=== PATIENT | male | born 1950 | race Caucasian/White ===

== ENCOUNTER 2020-04-20 14:32 | Outpatient (REF) | payer MEDICARE, SELFPAY ==
[2020-04-20 15:24] LABS: MANUAL DIFF FLAG NO
[2020-04-20 15:33] LABS: Basophils Absolute Auto 0.1 X10*3/uL (0.0-0.2); Basophils Percent Auto 1.9 % (0-2); Eosinophils Absolute Auto 0.2 X10*3/uL (0.0-0.4); Eosinophils Percent Auto 3.4 % (0-4); Hematocrit 42.9 % (42-52); Imm Gran Abs Auto 0.02 X10*3/uL (0.00-0.03); Imm Gran Pct Auto 0.3 % (0.0-0.4); Lymphocytes Absolute Auto 1.3 X10*3/uL (1.2-4.9); Lymphocytes Percent Auto 18.9 % (20-40); Mean Corpuscular HGB Conc 32.6 g/dl (31.0-36.0); Mean Corpuscular Volume 82.8 fL (80-98); Mean Platelet Volume 9.6 fL (9.4-12.4); Monocytes Absolute Auto 0.5 X10*3/uL (0.1-1.2); Monocytes Percent Auto 7.9 % (2-11); Neutrophils Absolute Auto 4.5 X10*3/uL (2.0-8.3); Neutrophils Percent Auto 67.6 % (45-73); Platelet Count 208 X10*3/uL (160-400); Red Blood Count 5.18 X10*6/uL (4.60-5.80); Red Cell Distribution Width 13.2 % (11.0-16.0); White Blood Count 6.7 X10*3/uL (4.8-10.8)
[2020-04-20 15:42] LABS: Estimated Average Glucose 123 mg/dL; Hemoglobin A1c % 5.9 %
[2020-04-20 16:05] LABS: Alanine Aminotransferase 24 U/L (0-40); Albumin Level 4.1 g/dL (3.5-5.0); Alkaline Phosphatase 63 U/L (39-117); Anion Gap 12 (12-20); Aspartate Amino Transferase 21 U/L (5-37); Bilirubin Total 0.8 mg/dL (0.0-1.0); Blood Urea Nitrogen 20 mg/dL (9-16); Carbon Dioxide 28 mmol/L (22-29); Chloride 103 mmol/L (96-108); Cholesterol 164 mg/dL; Estimated Glomerular Filt Rate > 60; Glucose Fasting 95 mg/dL (60-99); HDL Cholesterol 48 mg/dL; LDL Cholesterol Calculated 95 mg/dl; Potassium 4.1 mmol/l (3.3-5.1); Sodium 139 mmol/L (135-145); Total Protein 7.4 g/dL (6.5-8.0); Triglycerides 109 mg/dL
[2020-04-20 16:26] LABS: T4 Thyroxine 7.6 ug/dL (4.5-12.0); Thyroid Stimulating Hormone 1.87 mIU/mL (0.32-4.0)
[2020-04-20 16:33] LABS: Folate 8.1 ng/mL (> or = 4.0); Vitamin B12 691 pg/mL (200-900)
== END 2020-04-20 14:33 | disposition home or self-care (01) ==
LOC: HO.LAB 14:32
PROVIDERS: PCP Internal Medicine; Visit Provider Internal Medicine
DX: G47.33 Obstructive sleep apnea (adult) (pediatric) (principal); E78.5 Hyperlipidemia, unspecified; I10 Essential (primary) hypertension; R73.01 Impaired fasting glucose; I47.1 Supraventricular tachycardia
CPT/HCPCS: 36415; 80053; 80061; 82607; 82746; 83036; 84436; 84443; 85025

== ENCOUNTER → 2020-04-22 10:03 | Outpatient (REF) | payer MEDICARE, SELFPAY ==
--- NOTE | 2020-04-22 10:06 | ECG_ITS ---
Test Reason : CP Blood Pressure : / mmHG Vent. Rate : 064 BPM Atrial Rate : 064 BPM P-R Int : 146 ms QRS Dur : 098 ms QT Int : 410 ms P-R-T Axes : 045 032 037 degrees QTc Int : 422 ms Normal sinus rhythm Normal ECG When compared with ECG of 10-OCT-2015 07:33, No significant change was found Referred By: Veronica Malone Electronically Signed By:SADE MCARTHUR MD
== END ==
LOC: HO.CARD 10:03
PROVIDERS: PCP Internal Medicine; Visit Provider Internal Medicine
DX: Z01.818 Encounter for other preprocedural examination (principal); I10 Essential (primary) hypertension
CPT/HCPCS: 93005

== ENCOUNTER 2020-07-20 12:13 | Outpatient (REF) | payer MEDICARE, SELFPAY ==
[2020-07-20 12:33] LABS: MANUAL DIFF FLAG NO
[2020-07-20 12:36] LABS: Basophils Absolute Auto 0.1 X10*3/uL (0.0-0.2); Basophils Percent Auto 1.8 % (0-2); Eosinophils Absolute Auto 0.2 X10*3/uL (0.0-0.4); Eosinophils Percent Auto 3.3 % (0-4); Hematocrit 45.3 % (42-52); Hemoglobin 14.5 g/dl (14.0-18.0); Imm Gran Abs Auto 0.01 X10*3/uL (0.00-0.03); Imm Gran Pct Auto 0.1 % (0.0-0.4); Lymphocytes Absolute Auto 1.4 X10*3/uL (1.2-4.9); Lymphocytes Percent Auto 19.4 % (20-40); Mean Corpuscular Hemoglobin 26.7 pg (27.0-33.0); Mean Corpuscular Volume 83.3 fL (80-98); Mean Platelet Volume 9.4 fL (9.4-12.4); Monocytes Absolute Auto 0.7 X10*3/uL (0.1-1.2); Monocytes Percent Auto 9.4 % (2-11); Neutrophils Absolute Auto 4.8 X10*3/uL (2.0-8.3); Platelet Count 229 X10*3/uL (160-400); Red Blood Count 5.44 X10*6/uL (4.60-5.80); Red Cell Distribution Width 13.2 % (11.0-16.0); White Blood Count 7.3 X10*3/uL (4.8-10.8)
[2020-07-20 13:19] LABS: Anion Gap 13 (12-20); Blood Urea Nitrogen 18 mg/dL (9-16); Calcium 9.3 mg/dL (8.4-10.2); Carbon Dioxide 29 mmol/L (22-29); Chloride 103 mmol/L (96-108); Estimated Glomerular Filt Rate > 60; Glucose Fasting 107 mg/dL (60-99); Potassium 4.6 mmol/l (3.3-5.1); Sodium 140 mmol/L (135-145); Uric Acid 5.7 mg/dL (3.4-7.0)
== END 2020-07-20 12:14 | disposition home or self-care (01) ==
LOC: HO.LAB 12:13
PROVIDERS: PCP Nurse Practitioner Family; Visit Provider Nurse Practitioner Family
DX: M10.471 Other secondary gout, right ankle and foot (principal)
CPT/HCPCS: 36415; 80048; 84550; 85025

== ENCOUNTER 2020-10-15 09:14 | Outpatient (REF) | payer MEDICARE, SELFPAY ==
--- NOTE | ~2020-10-15 | XR_ITS ---
EXAMINATION: XR CHEST, 2 VIEWS CLINICAL INFORMATION: Cough COMPARISON: 10/08/2014 TECHNIQUE: PA and lateral views of the chest were obtained. FINDINGS: Minimal dependent atelectasis. Lungs are otherwise clear. No consolidation, pneumothorax, or pleural effusion. Cardiac and mediastinal contours are normal. Pulmonary vasculature is unremarkable. Trachea is midline. Mild degenerative disc disease in the thoracic spine. XR/XR chest 2V IMPRESSION: No acute pulmonary findings.
== END 2020-10-15 09:15 | disposition home or self-care (01) ==
LOC: HO.XRAY 09:14
PROVIDERS: PCP Internal Medicine; Visit Provider Internal Medicine
DX: R05 Cough (principal)
CPT/HCPCS: 71046

== ENCOUNTER → 2020-11-15 08:41 | Outpatient (BNVA) | payer MEDICARE, SELFPAY | PROVIDERS: PCP Internal Medicine; Referring Provider Internal Medicine; Visit Provider Internal Medicine Cardiovascular Disease | DX: I47.2 Ventricular tachycardia (principal); I10 Essential (primary) hypertension | CPT/HCPCS: 93005; 99212 ==

== ENCOUNTER → 2021-01-10 08:37 | Outpatient (REF) | payer MEDICARE, SELFPAY ==
--- NOTE | 2021-01-10 08:42 | CA_ITS ---
Transthoracic Echocardiogram Patient (Last, First, Middle): Ronnie Beasley E Gender: Male Date of : 1950 Age: 70 Procedure Date: 01/10/2021 Procedure Type: Transthoracic Echocardiogram Location: OP Height: 187.96 cm Weight: 97.52 kg BSA: 2.24 m2 Heart Rate: bpm BP: 138 / 79 mmHg Allergy Specialist: DSKandy Referring MD: Kavin Mcintosh MD Chair Pad Maker: Kavin Mcintosh MD Symptoms: I47.2 - Ventricular tachycardia Study Quality: Fair ECG Rhythm: Sinus Conclusions: - 1. Normal LV systolic function with impaired relaxation filling pattern 2. Thickened aortic valve without significant aortic stenosis 3. Normal RV systolic pressure 4. No gross pericardial effusion Findings Left Ventricle Normal left ventricular size, thickness, and systolic function. The visually estimated ejection fraction is between 65-70%. Spectral Doppler is indicative of an impaired relaxation filling pattern. E/E prime ratio is <8, consistent with normal filling pressures. Right Ventricle Normal right ventricular cavity size and systolic function. Atria The left atrium is normal in size. There is lipomatous hypertrophy of the interatrial septum. There is no evidence of interatrial shunt. The right atrium is normal in size. Aortic Valve There is mild calcification of the aortic valve. There is moderate thickening of the aortic valve. There is no aortic valve stenosis. There is no aortic valve regurgitation. Mitral Valve There is mild anterior and posterior mitral leaflet thickening. There is trace mitral valve regurgitation. There is no mitral valve stenosis. Pulmonic Valve The pulmonic valve was not well visualized. Tricuspid Valve Likely normal tricuspid valve structure and function. There is trace tricuspid valve regurgitation. The right ventricular systolic pressure is normal. Great Vessels All visible segments of the aorta are normal in size. The pulmonary artery was not well visualized. Venous The inferior vena cava was not well visualized. Pericardium/Pleural There is no evidence of pericardial effusion. Prior Study Comparison No previous study in the last 5 years for comparison Measurements M-Mode Liner Measurements Normals - Women/Men IVSd: 1.50 0.6-0.9/0.6-1.0 cm LVIDd: 4.84 3.9-5.3/4.2-5.9 cm LVIDd Index: 2.16 1.9-3.2 cm/m2 LVIDs: 3.11 2.0-3.8 cm LVPWd: 0.77 0.6-0.9/0.6-1.0 cm LV Mass: 255.57 67-162/88-224g LV Mass Index: 114.09 43-95/49-115 g/m2 M-Mode Volumes LV EDV: 110.00 LV ESV: 38.20 2D Linear Measurements IVSd: 1.17 0.6-0.9/0.6-1.0 cm LVIDd: 4.20 3.9-5.3/4.2-5.9 cm LVIDd Index: 1.88 2.4-3.2/2.2-3.1 cm/m2 LVIDs: 3.00 2.0-3.6 cm LVPWd: 1.18 0.7-1.1 cm Ao Root: 3.10 2.1-3.5 cm LA Diam: 3.10 2.7-3.8/3.0-4.0 cm LAIDs Index: 1.38 1.5-2.3 cm/m2 LV Mass: 215.20 67-162/88-224 g LV Mass Index: 96.07 43-95/49-115 g/m2 LVOT Diam: 2.60 3.0+(-)1.3 cm 2D Systolic Function EF 4C: 60.40 >55% EF 2C: 77.40 >55% EF BiP: 70.90 >55% M-Mode Systolic Function FS: 35.70 27-47/25-43% LVEF: 65.30 >55% Mitral Valve MV Pk E: 0.63 MV PK A: 0.61 MV Decel Time: 275.00 E/A: 1.00 E'Lateral: 6.74 E'Medial: 5.87 E/E' Med: 10.70 E/E' Lat: 9.30 PHT: 80.00 MVA PHT: 2.75 Decel [place]: 2.28 Aortic Valve AoV Pk Angel: 1.74 AoV Pk Grad: 12.00 LVOT LVOT Pk Angel: 0.90 LVOT Mn Angel: 0.55 LVOT VTI: 0.19 LVOT Pk Grad: 3.00 LVOT Mn Grad: 1.00 LVOT Diam: 2.60 LVOT Area: 5.31 Diastolic Function MV Pk E: 0.63 MV Pk A: 0.61 E/A: 1.00 E'Medial: 5.87 E/E' Med: 10.70 E' Laterial: 6.74 E/E' Lat: 9.30 Right Ventricle TAPSE (mm): 1.95 Tricuspid Valve TR Pk Angel: 2.19 TR Pk Grad: 19.00 Great Vessels Aorta Ao Root-2D: 3.10 2.0-3.7 cm Ao Asc: 3.40 2.1-3.4 cm Ao Arch: 2.20 Updated in Other Vendor System with Status of Final Kavin Mcintosh MD electronically signed on 01/12/2021 9:08:24 AM with status of Final
== END ==
LOC: HO.CARD 08:37
PROVIDERS: PCP Internal Medicine; Visit Provider Internal Medicine Cardiovascular Disease
DX: I47.2 Ventricular tachycardia (principal)
CPT/HCPCS: 93306

== ENCOUNTER 2021-04-28 12:07 | Outpatient (REF) | payer MEDICARE, SELFPAY ==
[2021-04-28 14:01] LABS: D Dimer 632 NG/ML
== END 2021-04-28 12:08 | disposition home or self-care (01) ==
LOC: HO.WFDLDS 12:07
PROVIDERS: Visit Provider Hospitalist
DX: T88.1XXA Other complications following immunization, not elsewhere classified, initial encounter (principal)
CPT/HCPCS: 36415; 85379

== ENCOUNTER 2021-04-29 13:50 | Outpatient (REF) | payer MEDICARE, SELFPAY ==
--- NOTE | ~2021-04-29 | US_ITS ---
EXAMINATION: US VENOUS ULTRASOUND WITH DOPPLER LOWER EXTREMITY, BILATERAL CLINICAL INFORMATION: Leg pain COMPARISON: None TECHNIQUE: Ultrasound of the deep veins is performed from the hip to the calf with compression sonography and color and pulse Doppler assessment. Spectral analysis with color-flow imaging is performed. FINDINGS: RIGHT: There is normal venous compression and respiratory variation and augmented flow. The visualized common femoral vein, superficial femoral vein, profunda femoral vein, popliteal vein, and the trifurcation region shows no evidence of deep venous thrombosis. There is no significant popliteal fossa cyst. LEFT: There is normal venous compression and respiratory variation and augmented flow. The visualized common femoral vein, superficial femoral vein, profunda femoral vein, popliteal vein, and the trifurcation region shows no evidence of deep venous thrombosis. There is a Jones's cyst measuring 4 x 0.8 x 2.1 cm. If the patient's symptoms persist, followup ultrasound in 5 days 7 days might be of value to exclude proximal propagation from a non-visualized calf vein. US/US venous duplex LE BI IMPRESSION: No DVT demonstrated in the bilateral lower extremity.
[2021-04-29 14:46] LABS: MANUAL DIFF FLAG NO
[2021-04-29 15:17] LABS: Basophils Absolute Auto 0.2 X10*3/uL (0.0-0.2); Basophils Percent Auto 1.7 % (0-2); Eosinophils Absolute Auto 0.7 X10*3/uL (0.0-0.4); Eosinophils Percent Auto 6.8 % (0-4); Hematocrit 40.4 % (42.0-52.0); Hemoglobin 13.3 g/dl (14.0-18.0); Imm Gran Abs Auto 0.14 X10*3/uL (0.00-0.03); Imm Gran Pct Auto 1.4 % (0.0-0.4); Lymphocytes Absolute Auto 1.2 X10*3/uL (1.2-4.9); Lymphocytes Percent Auto 12.4 % (20-40); Mean Corpuscular HGB Conc 32.9 g/dl (31.0-36.0); Mean Corpuscular Hemoglobin 26.4 pg (27.0-33.0); Mean Corpuscular Volume 80.2 fL (80.0-98.0); Mean Platelet Volume 8.6 fL (9.4-12.4); Monocytes Percent Auto 10.3 % (2-11); Neutrophils Absolute Auto 6.8 x10*3/uL (2.0-8.3); Neutrophils Percent Auto 67.4 % (45-73); Platelet Count 416 X10*3/uL (160-400); Red Blood Count 5.04 X10*6/uL (4.60-5.80); Red Cell Distribution Width 13.3 % (11.0-16.0)
[2021-04-29 15:29] LABS: Estimated Average Glucose 126 mg/dL
[2021-04-29 15:38] LABS: Alanine Aminotransferase 65 U/L (0-40); Albumin Level 3.8 g/dL (3.5-5.0); Alkaline Phosphatase 120 U/L (39-117); Anion Gap 11 (12-20); Aspartate Amino Transferase 26 U/L (5-37); Bilirubin Total 0.4 mg/dL (0.0-1.0); Blood Urea Nitrogen 18 mg/dL (9-16); Calcium 9.4 mg/dL (8.4-10.2); Carbon Dioxide 28 mmol/L (22-29); Chloride 101 mmol/L (96-108); Estimated Glomerular Filt Rate > 60; Glucose Random 122 mg/dL (60-115); Potassium 4.4 mmol/L (3.3-5.1); Sodium 136 mmol/L (135-145); Total Protein 7.6 g/dL (6.5-8.0)
[2021-04-29 15:41] LABS: B Type Natriuretic Peptide 98 pg/mL (<100)
[2021-04-29 15:55] LABS: Vitamin D 25-OH Total 42.6 ng/mL (>30)
[2021-04-29 16:00] LABS: Free T4 (Free Thyroxine) 1.12 ng/dL (0.71-1.85); Thyroid Stimulating Hormone 2.13 uIU/mL (0.32-4.0)
[2021-04-29 16:12] LABS: Folate 10.9 ng/mL (> or = 4.0); Vitamin B12 727 pg/mL (200-900)
== END 2021-04-29 13:51 | disposition home or self-care (01) ==
LOC: HO.US 13:50
PROVIDERS: PCP Internal Medicine; Visit Provider Nurse Practitioner Family
DX: M79.604 Pain in right leg (principal); M79.605 Pain in left leg; R79.89 Other specified abnormal findings of blood chemistry; I10 Essential (primary) hypertension; R73.02 Impaired glucose tolerance (oral)
CPT/HCPCS: 36415; 80053; 82306; 82607; 82746; 83036; 83735; 83880; 84439; 84443; 85025; 93970

== ENCOUNTER 2021-06-06 07:30 | Day surgery (SDC) | payer MEDICARE, SELFPAY ==
[2021-05-31 14:24] VITALS: BMI 28.2
--- NOTE | 2021-06-03 08:22 | HO.ANESPROP2 ---
Documented by User: Leslye Briceno NP 06/03/21 08:24 HPI - Anesthesia Eval Consult details Narrative: 71yo M for Colonoscopy [facility] Active Problems Active Problems: All Active Problems (Updated 04/29/21 @ 10:26 by MEGAN Michel) Elevated d-dimer (Acute) Leg pain, bilateral (Acute) Side effects of vaccination (Acute) Annual physical exam (Acute) Aphthous ulcer (Acute) PVCs (premature ventricular contractions) (Acute) Nonsustained ventricular tachycardia (Acute) Colon cancer screening (Acute) Cough (Acute) Constipation (Acute) Hemorrhoid (Acute) History of cataract surgery (Acute) Gout (Acute) Gout attack (Acute) Costochondritis (Acute) Preop exam for internal medicine (Acute) Impaired glucose tolerance (Acute) Asthma (Acute) Hypercholesterolemia (Acute) Hypertension (Acute) Past Medical History Medical History Asthma Gout attack Hemorrhoids Hypercholesterolemia Hypertension Impaired glucose tolerance Lumbar herniated disc Nonsustained ventricular tachycardia Obstructive sleep apnea PVCs (premature ventricular contractions) Supraventricular tachycardia Traumatic tear of supraspinatus tendon of right shoulder Family History Family History Father Renal cell cancer Mother Gastric cancer Hypertension Diabetes Surgical History Surgical History History of arthroscopy of left knee History of tonsillectomy Total knee replacement status Social History Social History Housing: House Alcohol intake: current Alcohol intake frequency: holidays/special occasions only Patient Tobacco Use Status: Former Tobacco user Quit Date: Years Smoked: 1969 e-Cigarette/Vaping Use: Never Used Second Hand Smoke Exposure: No Use of substances other than those prescribed or required for medical reasons: No Are you DNR?: No Advance Directives: No Advance Directives Information Provided: Yes Advance Directives on File: No Current occupational status: employed Meds Allergies Allergy/AdvReac Type Severity Reaction Status Date / Time lisinopril Allergy Unknown Unknown Verified 04/29/21 09:57 Home Medications Medication Instructions Recorded Confirmed Last Taken Type aspirin 81 mg tablet,delayed 81 mg PO DAILY 10/06/06/21 05/28/21 History release (Adult Aspirin Regimen) cholecalciferol (vitamin D3) 25 25 mcg PO DAILY 04/22/20 05/31/21 Unknown History mcg (1,000 unit) capsule sildenafil 100 mg tablet (Viagra) 100 mg PO DAILY PRN 04/22/20 04/29/21 Unknown History fexofenadine 180 mg tablet 180 mg PO DAILY 05/31/21 05/31/21 Unknown History (Yumi Allergy) ropinirole 0.25 mg tablet 0.25 mg PO BEDTIME PRN 05/31/21 05/31/21 Unknown History Exam Exam Date and Time: June 03, 2021 0822 Height,Weight and Vital Signs: Height 6 ft 2 in Weight 99.79 kg Pertinent Lab Results Pertinent Lab Results: Laboratory Tests 04/29/21 04/29/21 14:35 14:35 WBC 10.0 Hgb 13.3 L Hct 40.4 L Plt Count 416 H Sodium 136 Potassium 4.4 Chloride 101 Carbon Dioxide 28 BUN 18 H Creatinine 1.00 Narrative Narrative: EKG 10/2020 ?normal sinus rhythm with normal EKG ECHO 12/2020 Conclusions: -? 1. Normal LV systolic function with impaired relaxation ? ? ? filling pattern? 2. Thickened aortic valve without significant aortic stenosis? ? 3. Normal RV systolic pressure ? 4. No gross pericardial effusion ? ? Assessment and Plan Assessment Anesthesia Assessment: Chart Reviewed Documented by User: Alyson Alexandre MD 06/06/21 08:48 PMFSH Active Problems Active Problems: All Active Problems (Updated 04/29/21 @ 10:26 by MEGAN Michel) Elevated d-dimer (Acute) Leg pain, bilateral- resolved. USS negative for clot Side effects of vaccination (Acute) Annual physical exam (Acute) Aphthous ulcer (Acute) PVCs (premature ventricular contractions) (Acute) Nonsustained ventricular tachycardia (Acute) Colon cancer screening (Acute) Cough (Acute) Constipation (Acute) Hemorrhoid (Acute) History of cataract surgery (Acute) Gout (Acute) Gout attack (Acute) Costochondritis (Acute) Preop exam for internal medicine (Acute) Impaired glucose tolerance (Acute) Asthma (Acute) Hypercholesterolemia (Acute) Hypertension (Acute) Past Medical History Medical History Asthma Gout attack Hemorrhoids Hypercholesterolemia Hypertension Impaired glucose tolerance Lumbar herniated disc Nonsustained ventricular tachycardia Obstructive sleep apnea PVCs (premature ventricular contractions) Supraventricular tachycardia Traumatic tear of supraspinatus tendon of right shoulder Family History Family History Father Renal cell cancer Mother Gastric cancer Hypertension Diabetes Family history of problems with anesthesia: No Surgical History Surgical History History of arthroscopy of left knee History of tonsillectomy Total knee replacement status History of Problems with Anesthesia: No Social History Social History Housing: House Alcohol intake: current Alcohol intake frequency: holidays/special occasions only Patient Tobacco Use Status: Former Tobacco user Quit Date: Years Smoked: 1969 e-Cigarette/Vaping Use: Never Used Second Hand Smoke Exposure: No Use of substances other than those prescribed or required for medical reasons: No Are you DNR?: No Advance Directives: No Advance Directives Information Provided: Yes Advance Directives on File: No Current occupational status: employed Meds Allergies Allergy/AdvReac Type Severity Reaction Status Date / Time lisinopril Allergy Unknown Unknown Verified 04/29/21 09:57 Home Medications Medication Instructions Recorded Confirmed Last Taken Type aspirin 81 mg tablet,delayed 81 mg PO DAILY 04/22/20 06/06/21 05/28/21 History release (Adult Aspirin Regimen) cholecalciferol (vitamin D3) 25 25 mcg PO DAILY 04/22/20 05/31/21 Unknown History mcg (1,000 unit) capsule sildenafil 100 mg tablet (Viagra) 100 mg PO DAILY PRN 04/22/20 04/29/21 Unknown History fexofenadine 180 mg tablet 180 mg PO DAILY 05/31/21 05/31/21 Unknown History (Yumi Allergy) ropinirole 0.25 mg tablet 0.25 mg PO BEDTIME PRN 05/31/21 05/31/21 Unknown History Exam Height,Weight and Vital Signs: Height 6 ft 2 in Weight 99.79 kg Vital Signs Temp Pulse Resp BP Pulse Ox 06/06/21 08:02 97.1 F 81 16 123/80 98 Airway Mallampati Class: III TM Dist: >3cm Neck ROM: Full Loose/Missing/Broken Teeth: Yes (Broken back) Heart: RRR Lungs: CTAB Assessment and Plan Assessment Anesthesia Assessment: Anesthesia Plan Discussed Final Anesthetic Review Family History of Problems with Anesthesia: No History of Problems with Anesthesia: No NPO: Yes ASA Class: III Final Preanesthetic Review: No Changes in Pt Med Stat, Meds/Allgs Chart Reviewed, Consent Obtained/Reviewed and Anes Risks/Benef Reviewed Patient Risk: Intermediate Procedure Risk: Low Assessment/Block/Sedation in SS: Assess/Block/Sedation-SS Anesthetic Plan Anesthetic Plan: MAC: Disposition: Standard PACU
[2021-06-06 08:02] VITALS: BP 123/80; PULSE 81; RESP 16; TEMP 36.2; O2SAT 98
[2021-06-06] MEDS: Lactated Ringers 1,000 ML 100 ML IVCONT (08:07)
[2021-06-06 09:31] VITALS: BP 91/56; PULSE 71; RESP 16; TEMP 36.5; O2SAT 94
--- NOTE | 2021-06-06 09:33 | P.BOP_ITS ---
Brief Operative Note Date of Service: 06/06/21 Pre-op diagnosis: Screening Post-op diagnosis: other (Colon polyp) Procedure: Colonoscopy to the cecum and TI with bx/removal of polyp Surgeon: Estiven Campoverde Anesthesia: MAC Was an Hydroelectric Station Operator Chief used for this Procedure?: No Estimated blood loss (mL): 2.0 Pathology: other (A. Ascending colon polyp) Condition: stable Disposition: PACU
[2021-06-06 09:48] VITALS: BP 106/68; PULSE 70; RESP 20; TEMP 36.5; O2SAT 96
--- NOTE | 2021-06-06 14:08 | OP_ITS ---
SURGEON: Estiven Campoverde MD INDICATIONS: The patient presents for evaluation of colorectal cancer screening. Full consent has been obtained from him for this, including risks of bleeding and perforation. PREOPERATIVE DIAGNOSIS: Colorectal cancer screening. POSTOPERATIVE DIAGNOSIS: Colorectal cancer screening, small colon polyp, mild diverticulosis, and internal hemorrhoids. PROCEDURE PERFORMED: Colonoscopy to the cecum and terminal ileum with biopsy and removal of polyp. ESTIMATED BLOOD LOSS: COMPLICATIONS: ANESTHESIA: Medication used, monitored anesthesia care. ASSISTANTS: SPECIMENS: DESCRIPTION OF PROCEDURE: The patient was placed in the left lateral decubitus position. The digital rectal exam revealed no abnormalities. An Olympus video pediatric colonoscope was entered into the rectum and advanced easily to the cecum. Once in the cecum, I did identify normal-appearing cecal pouch with appendiceal orifice and a normal-appearing ileocecal valve. The terminal ileum was cannulated and appeared normal. The scope was withdrawn back into the colon. The entire cecum and ileocecal valve appeared normal. The scope was slowly withdrawn assessing all mucosal surfaces carefully. Preparation was excellent. In the ascending colon, was a flat approximately 3 or 4 mm polyp, which was biopsied and removed completely with cold biopsy forceps. I did not visualize any other polyps, colitis, nor angiodysplasia. There was a mild amount of sigmoid diverticulosis. In the rectum, scope was retroflexed visualizing small internal hemorrhoids, but no other pathology. The rectal mucosa appeared normal. The scope was straightened and withdrawn from the patient. He tolerated the procedure well and was returned to recovery area in stable condition. IMPRESSION: 1. Small colon polyp, status post biopsy removal. 2. Mild diverticulosis. 3. Internal hemorrhoids. PLAN: The results of the biopsy will be checked. Given his age and these minimal findings, I do not think he will need any further screening colonoscopies even if this is a tubular adenoma. As such, he will see me again on a p.r.n. basis. MD LIONEL Nguyen/MAJO / [id number] MTDD
== END 2021-06-06 10:48 | disposition home or self-care (01) ==
PROVIDERS: PCP Internal Medicine; Visit Provider Internal Medicine
PROC: 0DJD8ZZ Inspection of Lower Intestinal Tract, Via Natural or Artificial Opening Endoscopic (ICD-10-PCS; CPT 45378; principal; 2021-06-06 08:40)
DX: Z12.11 Encounter for screening for malignant neoplasm of colon (principal); D12.2 Benign neoplasm of ascending colon; K57.30 Diverticulosis of large intestine without perforation or abscess without bleeding; K64.8 Other hemorrhoids; I10 Essential (primary) hypertension; I47.2 Ventricular tachycardia; E78.5 Hyperlipidemia, unspecified; Z79.899 Other long term (current) drug therapy
CPT/HCPCS: 45380; 88305

== ENCOUNTER 2021-07-05 12:40 | Outpatient (REF) | payer MEDICARE, SELFPAY ==
--- NOTE | ~2021-07-05 | XR_ITS ---
EXAMINATION: XR CHEST CLINICAL INFORMATION: Hemoptysis COMPARISON: Chest x-ray on 10/15/2020 TECHNIQUE: 2 views of the chest were obtained. FINDINGS: Cardiomediastinal silhouette is normal. Development of a trace right pleural effusion with adjacent atelectasis. The left pleural effusion. No areas of consolidation. XR/XR chest 2V IMPRESSION: Development of a trace right pleural effusion with adjacent atelectasis.
== END 2021-07-05 12:41 | disposition home or self-care (01) ==
LOC: HO.XRAY 12:40
PROVIDERS: PCP Internal Medicine; Visit Provider Internal Medicine
DX: R04.2 Hemoptysis (principal)
CPT/HCPCS: 71046

== ENCOUNTER 2021-07-07 15:55 | Outpatient (REF) | payer MEDICARE, SELFPAY | END 2021-07-07 15:56 | disposition home or self-care (01) | LOC: HO.LNP 15:55 | PROVIDERS: Visit Provider Internal Medicine | DX: R05.9 Cough, unspecified (principal) | CPT/HCPCS: 87070; 87116; 87205 ==

== ENCOUNTER 2021-07-09 11:39 | Outpatient (REF) | payer MEDICARE, SELFPAY | END 2021-07-09 11:40 | disposition home or self-care (01) | LOC: HO.LNP 11:39 | PROVIDERS: PCP Internal Medicine; Visit Provider Internal Medicine | DX: R04.2 Hemoptysis (principal); J90 Pleural effusion, not elsewhere classified | CPT/HCPCS: 87070; 87205 ==

== ENCOUNTER 2021-11-16 14:17 | Outpatient (REF) | payer MEDICARE, SELFPAY ==
--- NOTE | ~2021-11-16 | XR_ITS ---
EXAMINATION: XR CHEST CLINICAL INFORMATION: Chest pain COMPARISON: Previous chest x-ray June 2021 TECHNIQUE: 2 views of the chest were obtained. FINDINGS: The cardiac and mediastinal contours are stable. There is bilateral subsegmental atelectasis. Lungs are otherwise clear. There is no pleural effusion or pneumothorax. There are mild degenerative changes of the spine. XR/XR chest 2V IMPRESSION: Bilateral subsegmental atelectasis.
[2021-11-16 14:43] LABS: MANUAL DIFF FLAG NO
[2021-11-16 16:08] LABS: Basophils Absolute Auto 0.1 X10*3/uL (0.0-0.2); Basophils Percent Auto 1.9 % (0-2); Eosinophils Absolute Auto 0.4 X10*3/uL (0.0-0.4); Eosinophils Percent Auto 5.3 % (0-4); Imm Gran Abs Auto 0.02 X10*3/uL (0.00-0.03); Imm Gran Pct Auto 0.3 % (0.0-0.4); Lymphocytes Absolute Auto 1.3 X10*3/uL (1.2-4.9); Lymphocytes Percent Auto 18.2 % (20-40); Mean Corpuscular HGB Conc 31.8 g/dl (31.0-36.0); Mean Corpuscular Hemoglobin 25.7 pg (27.0-33.0); Mean Corpuscular Volume 80.9 fL (80.0-98.0); Mean Platelet Volume 9.8 fL (9.4-12.4); Monocytes Absolute Auto 0.8 X10*3/uL (0.1-1.2); Monocytes Percent Auto 11.5 % (2-11); Neutrophils Absolute Auto 4.4 x10*3/uL (2.0-8.3); Neutrophils Percent Auto 62.8 % (45-73); Platelet Count 246 X10*3/uL (160-400); Red Blood Count 5.44 X10*6/uL (4.60-5.80); Red Cell Distribution Width 14.8 % (11.0-16.0); Retic HGB Equivalent 30.8 pg (30.0-35.0); Reticulocyte Percent 1.7 % (0.5-1.8)
[2021-11-16 16:14] LABS: D Dimer High Sensitivity 945 NG/ML
[2021-11-16 16:41] LABS: Alanine Aminotransferase 18 U/L (0-40); Albumin Level 4.1 g/dL (3.5-5.0); Alkaline Phosphatase 80 U/L (39-117); Anion Gap 13 (12-20); Aspartate Amino Transferase 19 U/L (5-37); Bilirubin Total 0.6 mg/dL (0.0-1.0); Blood Urea Nitrogen 16 mg/dL (9-16); Calcium 9.7 mg/dL (8.4-10.2); Carbon Dioxide 28 mmol/L (22-29); Chloride 104 mmol/L (96-108); Estimated Glomerular Filt Rate > 60; Glucose Random 94 mg/dL (60-115); Iron 47 mcg/dL (45-160); Percent Iron Saturation 16 % (15-50); Potassium 5.1 mmol/L (3.3-5.1); Sodium 140 mmol/L (135-145); Total Iron Binding Capacity 291 mcg/dL (228-428); Total Protein 7.7 g/dL (6.5-8.0); Unsaturated Iron Binding 244 ug/dL
[2021-11-16 16:48] LABS: Ferritin 188 ng/mL (20-250)
[2021-11-16 17:02] LABS: Folate 6.4 ng/mL (> or = 4.0); Vitamin B12 551 pg/mL (200-900)
== END 2021-11-16 14:18 | disposition home or self-care (01) ==
LOC: HO.LAB 14:17
PROVIDERS: PCP Internal Medicine; Visit Provider Family Medicine
DX: Z00.00 Encounter for general adult medical examination without abnormal findings (principal); R07.9 Chest pain, unspecified; R06.89 Other abnormalities of breathing; I10 Essential (primary) hypertension; R79.89 Other specified abnormal findings of blood chemistry; J90 Pleural effusion, not elsewhere classified
CPT/HCPCS: 36415; 71046; 80053; 82607; 82728; 82746; 83540; 85025; 85045; 85379

== ENCOUNTER → 2021-11-17 08:42 | Outpatient (BNVA) | payer MEDICARE, SELFPAY | PROVIDERS: PCP Internal Medicine; Referring Provider Internal Medicine; Visit Provider Internal Medicine Cardiovascular Disease | DX: I47.2 Ventricular tachycardia (principal); R07.9 Chest pain, unspecified; I10 Essential (primary) hypertension | CPT/HCPCS: 99212 ==

== ENCOUNTER 2021-11-17 15:50 | Emergency (ER) | payer MEDICARE, SELFPAY ==
--- NOTE | ~2021-11-17 | US_ITS ---
EXAMINATION: US VENOUS ULTRASOUND WITH DOPPLER LOWER EXTREMITY, RIGHT CLINICAL INFORMATION: Right lower extremity pain and swelling COMPARISON: None TECHNIQUE: Ultrasound of the deep veins is performed from the hip to the calf with compression sonography and color and pulse Doppler assessment. Spectral analysis with color-flow imaging is performed. FINDINGS: The right common femoral, greater saphenous and profunda veins are patent. The proximal special vein is patent as well. However there is acute thrombus with no flow visualized in the right mid and distal superficial femoral, popliteal veins. The posterior tibial proximal radius thrombosis as well. The peroneal vein is patent. There is no Jones's cyst seen. If the patient's symptoms persist, followup ultrasound in 5 days 7 days might be of value to exclude proximal propagation from a non-visualized calf vein. US/US venous duplex LE RT IMPRESSION: Acute DVT right mid, distal superficial femoral, popliteal and posterior tibial veins. Results were immediately called by [place] its text to Dr. Faisal Martin at 4:30 PM. As per PCP instruction patient was sent to ER for for further treatment.
[2021-11-17 16:24] VITALS: BP 186/75; PULSE 68; RESP 18; TEMP 36.8; O2SAT 95; BMI 28.5
--- NOTE | 2021-11-17 16:49 | ECG_ITS ---
Test Reason : blood clot Blood Pressure : / mmHG Vent. Rate : 064 BPM Atrial Rate : 064 BPM P-R Int : 146 ms QRS Dur : 116 ms QT Int : 422 ms P-R-T Axes : 025 006 019 degrees QTc Int : 435 ms Normal sinus rhythm Normal ECG When compared with ECG of 22-APR-2020 10:13, No significant change was found Referred By: Leonardo Kenny Electronically Signed By:Antwon Valdez
--- NOTE | 2021-11-17 16:55 | ED.GENADULT ---
HPI - General Adult General Chief complaint: Extremity Injury, Lower Stated complaint: +blood clot in leg Time Seen by Provider: 11/17/21 16:25 Source: patient Mode of arrival: ambulatory Limitations: no limitations History of Present Illness HPI narrative: 71 yo sent here because rt leg swelling and US positive for DVT.Leg has been swollen for 1 Week ,he also has rt pleuritic chest pain He had blood work and CXR Yesterday.He denies SOB,fever chills.His pleuritic chest pain is present for 3 Days Onset (ago): week(s) (1 Week) Location: right and lower extremity Severity: moderate Quality: burning Pain Consistency: constant Relieving factors: none Related Data Home Medications Medication Instructions Recorded Confirmed aspirin 81 mg tablet,delayed 81 mg PO DAILY 04/22/20 11/17/21 release (Adult Aspirin Regimen) cholecalciferol (vitamin D3) 25 25 mcg PO DAILY 04/22/20 11/17/21 mcg (1,000 unit) capsule sildenafil 100 mg tablet (Viagra) 100 mg PO DAILY PRN 04/22/20 11/17/21 fexofenadine 180 mg tablet 180 mg PO DAILY 05/31/21 11/17/21 (Yumi Allergy) Previous Rx's Medication Instructions Recorded rosuvastatin 40 mg tablet (Crestor) 40 mg PO DAILY #90 tab 01/10/21 metoprolol succinate 50 mg 50 mg PO QPM #90 tab 04/08/21 tablet,extended release 24 hr losartan 25 mg tablet 25 mg PO DAILY #90 tab 04/11/21 diclofenac sodium 1 % topical gel 2 g TOPICAL QID PRN 10 Days #100 g 04/29/21 (Arthritis Pain (diclofenac)) naproxen 500 mg tablet 500 mg PO BID 90 Days #180 tab 08/29/21 metoprolol succinate 100 mg 100 mg PO QAM #90 tab 10/13/21 tablet,extended release 24 hr apixaban 5 mg (74 tabs) tablets in 5 mg PO BID #74 ea 11/17/21 a dose pack (Eliquis DVT-PE Treat 30D Start) Allergies Allergy/AdvReac Type Severity Reaction Status Date / Time lisinopril Allergy Unknown Unknown Verified 11/17/21 16:24 Review of Systems Constitutional: Constitutional: Reports as per HPI ENT: Reports system reviewed and no additional complaints, except as documented Cardiovascular: Cardiovascular: Reports no additional cardiovascular complaints Gastrointestinal: Gastrointestinal: Reports no additional gastrointestinal complaints [facility] Past Medical History Medical History Asthma Gout attack Hemorrhoids Hypercholesterolemia Hypertension Impaired glucose tolerance Lumbar herniated disc Nonsustained ventricular tachycardia Obstructive sleep apnea PVCs (premature ventricular contractions) Supraventricular tachycardia Traumatic tear of supraspinatus tendon of right shoulder Surgical History History of arthroscopy of left knee History of tonsillectomy Total knee replacement status Family History Family History Father Renal cell cancer Mother Gastric cancer Hypertension Diabetes Social History Social History Housing: House Alcohol intake: current Alcohol intake frequency: holidays/special occasions only Patient Tobacco Use Status: Former Tobacco user Quit Date: Years Smoked: 1969 e-Cigarette/Vaping Use: Never Used Second Hand Smoke Exposure: No service: No Current occupational status: employed Current occupational exposures/hazards: No Cognitive needs: No Hearing needs: No Vision needs: Yes Physical Exam ED Vital Signs: Vital Signs - 24 hr 11/17/21 16:24 Temperature 98.3 F Pulse Rate 68 Respiratory Rate 18 Blood Pressure 186/75 H Pulse Oximetry 95 BMI result Body Mass Index 28.5 Const General: cooperative, healthy appearing and comfortable Nutritional Appearance: average body habitus Orientation/consciousness: patient oriented x3 Limitations: no limitations HENMT Head: Yes normal to inspection and Yes No palpable skull fracture present Ears: hearing grossly normal bilaterally General nose exam: Normal external nose present Face and sinus: Yes normal facial exam Mouth: Normal oral and palatal mucosa present Throat: Yes posterior oropharynx normal Neck Neck: Yes normal visual inspection Thyroid: Thyroid normal Chest Chest palpation & inspection: normal inspection of the chest and normal palpation of entire chest wall Breast/axilla palpation: normal palpation of the breasts Resp Effort & Inspection: normal respiratory effort Auscultation: clear to auscultation bilaterally Percussion: percussion normal Cardio Jugular venous distension: no JVD Palpation: normal PMI Rate: regular rate Rhythm: regular rhythm GI Inspection: Yes normal to inspection Palpation (GI): Soft to palpation, not firm, nontender and no guarding Percussion: Yes normal to percussion General: Yes no CVA tenderness Back/Spine/Pelvis Back: no CVA tenderness Skin General skin exam: no rashes or lesions noted and turgor normal Lesions: no lesions Rashes: no rashes Nails: normal Neuro General: patient oriented x3 Medical Decision Making MDM Narrative Medical decision making narrative: PT has positive DVT rt leg,will be started on eliquil 10 mg BID X 1 Week then 5 mg BID,given the shortage national of IV contrast I do not think we need to do CTA because this will not change the treatment,he looks well he is not tachycardic Sat 95 %,he is not complaining of SOB. THis was discussed with pt and PCP Dr URBAN both comfortable with the plan to hold CTA Chest. I reviwed the CXR done Yesterday and labs done Yesterday I do not think needs further labs This pt was evaluated during a time of global shortage of iodinated contrast media the current situation was discussed with the pt,CTA will not change treatment Imaging Data us leg: Radiologist's impression: FINDINGS: The right common femoral, greater saphenous and profunda veins are patent. The proximal special vein is patent as well. However there is acute thrombus with no flow visualized in the right mid and distal superficial femoral, popliteal veins. The posterior tibial proximal radius thrombosis as well. The peroneal vein is patent. There is no Jones's cyst seen. If the patient's symptoms persist, followup ultrasound in 5 days 7 days might be of value to exclude proximal propagation from a non-visualized calf vein. US/US venous duplex LE RT IMPRESSION: Acute DVT right mid, distal superficial femoral, popliteal and posterior tibial veins. ? Results were immediately called by [place] its text to Dr. Faisal Martin at 4:30 PM. As per PCP instruction patient was sent to ER for for further treatment. Dictated By: Agusto Gregorio MD Signed By: <Electronically signed by Agusto Gregorio MD in OV> 11/17/21 2023 DD/ 1541 ECG Data Attestation: I personally reviewed and interpreted this ECG as follows: Pacemaker model: NSR 64 no ischemic changes Discharge Plan Discharge Clinical Impression: Venous thromboembolism (VTE) Patient Disposition: Home, Self-Care Instructions: Deep Vein Thrombosis (ED) Additional Instructions: Please be aware that you were seen during time of global shortage of iodinated media.This means that an alternative approach to your diagnosis and treatment may have been employed in order to provide optimal care during this shortage. If you have worsening of symptoms return to the ED,if you are short of breath or having difficult to breathing. Take eliquis as directed 10 mg twice day first Week then 5 mg twice day,we gave you 1 Month supply ,your Primary care will prescribe further supply of Eliquis Prescriptions: New Eliquis DVT-PE Treat 30D Start 5 mg (74 tabs) tablets,dose pack 5 mg PO BID Qty: 74 0RF Rx Instructions: first week 10 mg BID then 5 mg BID No Action rosuvastatin [Crestor] 40 mg tablet 40 mg PO DAILY Qty: 90 3RF metoprolol succinate 50 mg tablet extended release 24 hr 50 mg PO QPM Qty: 90 2RF losartan 25 mg tablet 25 mg PO DAILY Qty: 90 2RF diclofenac sodium [Arthritis Pain (diclofenac)] 1 % gel 2 g topical QID PRN (Reason: pain) 10 Days Qty: 100 0RF Rx Instructions: apply to single elbow, wrist or hand; for hand includes palm/fingers/back of hand naproxen 500 mg tablet 500 mg PO BID 90 Days Qty: 180 0RF metoprolol succinate 100 mg tablet extended release 24 hr 100 mg PO QAM Qty: 90 2RF fexofenadine [Yumi Allergy] 180 mg Tablet 180 mg PO DAILY 0RF cholecalciferol (vitamin D3) 25 mcg (1,000 unit) capsule 25 mcg PO DAILY 0RF aspirin [Adult Aspirin Regimen] 81 mg tablet,delayed release (DR/EC) 81 mg PO DAILY 0RF sildenafil [Viagra] 100 mg tablet 100 mg PO DAILY PRN0RF Rx Instructions: administer 30 minutes to 4 hours before activity Referrals: Po,Veronica Julio MD [Primary Care Provider] - 3 days Interventions: ED Discharge Assessment Last Done: 11/17/21 17:42 Discharge Date/Time: 11/17/21 17:43
[2021-11-17] MEDS: Apixaban 5 MG TABLET 10 MG PO (17:26)
== END 2021-11-17 17:43 | disposition home or self-care (01) ==
LOC: HO.ED 15:50
PROVIDERS: Emergency Provider Emergency Medicine; PCP Internal Medicine; Visit Provider Internal Medicine
DX: I82.401 Acute embolism and thrombosis of unspecified deep veins of right lower extremity (principal); R07.89 Other chest pain; M79.89 Other specified soft tissue disorders; M79.661 Pain in right lower leg; I10 Essential (primary) hypertension; E78.5 Hyperlipidemia, unspecified; Z79.82 Long term (current) use of aspirin; Z79.02 Long term (current) use of antithrombotics/antiplatelets; Z79.899 Other long term (current) drug therapy
CPT/HCPCS: 93005; 93971; 99283; 99284

== ENCOUNTER 2021-11-24 10:58 | Emergency (ER) | payer MEDICARE, SELFPAY ==
--- NOTE | ~2021-11-24 | US_ITS ---
EXAMINATION: US VENOUS ULTRASOUND WITH DOPPLER LOWER EXTREMITY, RIGHT CLINICAL INFORMATION: On Eliquis. COMPARISON: Ultrasound right lower extremity 11/17/2021. TECHNIQUE: Ultrasound of the deep veins is performed from the hip to the calf with compression sonography and color and pulse Doppler assessment. Spectral analysis with color-flow imaging is performed. FINDINGS: Again visualized is a thrombus with absent flow visualized in right mid, distal superficial femoral vein, popliteal vein and proximal posterior tibial veins. There is normal flow visualized in right common femoral, greater saphenous, proximal superficial femoral and peroneal veins. If the patient's symptoms persist, followup ultrasound in 5 days 7 days might be of value to exclude proximal propagation from a non-visualized calf vein. US/US venous duplex LE RT IMPRESSION: Stable thrombus visualized in the mid and distal superficial femoral, popliteal and proximal posterior tibial veins similar previous study 11/17/2021. There is no propagation of clot. Recommend continued follow-up after one week of anticoagulants.
[2021-11-24 11:07] VITALS: BP 189/96; PULSE 70; RESP 18; TEMP 36.6; O2SAT 97; BMI 28.2
[2021-11-24 11:26] LABS: MANUAL DIFF FLAG NO
[2021-11-24 11:33] LABS: Basophils Absolute Auto 0.1 X10*3/uL (0.0-0.2); Eosinophils Absolute Auto 0.3 X10*3/uL (0.0-0.4); Eosinophils Percent Auto 4.7 % (0-4); Hematocrit 43.5 % (42.0-52.0); Hemoglobin 14.1 g/dl (14.0-18.0); Imm Gran Abs Auto 0.02 X10*3/uL (0.00-0.03); Imm Gran Pct Auto 0.3 % (0.0-0.4); Lymphocytes Absolute Auto 1.1 X10*3/uL (1.2-4.9); Lymphocytes Percent Auto 16.8 % (20-40); Mean Corpuscular HGB Conc 32.4 g/dl (31.0-36.0); Mean Corpuscular Hemoglobin 26.6 pg (27.0-33.0); Mean Corpuscular Volume 82.1 fL (80.0-98.0); Mean Platelet Volume 8.7 fL (9.4-12.4); Monocytes Absolute Auto 0.8 X10*3/uL (0.1-1.2); Neutrophils Absolute Auto 4.2 x10*3/uL (2.0-8.3); Neutrophils Percent Auto 64.2 % (45-73); Platelet Count 228 X10*3/uL (160-400); Red Cell Distribution Width 14.5 % (11.0-16.0); White Blood Count 6.6 X10*3/uL (4.8-10.8)
[2021-11-24 11:38] LABS: INTERNATIONAL NORM RATIO 1.4 (0.9-1.1)
[2021-11-24 11:48] LABS: Alanine Aminotransferase 20 U/L (0-40); Albumin Level 4.1 g/dL (3.5-5.0); Alkaline Phosphatase 74 U/L (39-117); Anion Gap 15 (12-20); Aspartate Amino Transferase 20 U/L (5-37); Bilirubin Total 0.5 mg/dL (0.0-1.0); Blood Urea Nitrogen 12 mg/dL (9-16); Calcium 9.8 mg/dL (8.4-10.2); Carbon Dioxide 28 mmol/L (22-29); Chloride 105 mmol/L (96-108); Creatinine Clr Calc Pharmacy 74.8; Estimated Glomerular Filt Rate > 60; Glucose Random 100 mg/dL (60-115); Potassium 4.9 mmol/L (3.3-5.1); Sodium 143 mmol/L (135-145); Total Protein 7.8 g/dL (6.5-8.0)
[2021-11-24 13:21] VITALS: BP 172/87; PULSE 60; RESP 14; O2SAT 97
--- NOTE | 2021-11-24 13:33 | ED_ITS ---
HPI - Extremity Problem General Chief complaint: Extremity Problem Stated complaint: r leg throbs hx clots Time Seen by Provider: 11/24/21 12:50 Source: patient Mode of arrival: ambulatory Limitations: no limitations History of Present Illness HPI Narrative: Patient's emergency department today for pain to his right lower extremity. Reports pain to the medial aspect of the leg just superior to the knee, it is in termittent lasting 10-15 minutes at a time. Onset of pain with today. States that he was seen in the emergency department 1 week ago and was told he had a blood clot in the right leg, was started on Eliquis which he has been compliant with today. Initially only symptom of DVT was swelling. No prior pain. Denies headache, vision changes, dizziness, lightheadedness, neck pain, chest pain, palpitations, shortness of breath, difficulty breathing nausea vomiting, abdominal pain, dysuria urinary frequency, lower extremity weakness, fatigue. Related Data Home Medications Medication Instructions Recorded Confirmed aspirin 81 mg tablet,delayed 81 mg PO DAILY 04/22/20 11/17/21 release (Adult Aspirin Regimen) cholecalciferol (vitamin D3) 25 25 mcg PO DAILY 04/22/20 11/17/21 mcg (1,000 unit) capsule sildenafil 100 mg tablet (Viagra) 100 mg PO DAILY PRN 04/22/20 11/17/21 fexofenadine 180 mg tablet 180 mg PO DAILY 05/31/21 11/17/21 (Yumi Allergy) Previous Rx's Medication Instructions Recorded rosuvastatin 40 mg tablet (Crestor) 40 mg PO DAILY #90 tab 01/10/21 metoprolol succinate 50 mg 50 mg PO QPM #90 tab 04/08/21 tablet,extended release 24 hr losartan 25 mg tablet 25 mg PO DAILY #90 tab 04/11/21 diclofenac sodium 1 % topical gel 2 g TOPICAL QID PRN 10 Days #100 g 04/29/21 (Arthritis Pain (diclofenac)) naproxen 500 mg tablet 500 mg PO BID 90 Days #180 tab 08/29/21 metoprolol succinate 100 mg 100 mg PO QAM #90 tab 10/13/21 tablet,extended release 24 hr apixaban 5 mg tablet (Eliquis) 5 mg PO BID 90 Days #180 tab 11/23/21 Allergies Allergy/AdvReac Type Severity Reaction Status Date / Time lisinopril Allergy Unknown Unknown Verified 11/23/21 08:17 Review of Systems Review of Systems: Constitutional: No fever, chills, weakness or fatigue. Skin: No rash or itching. Cardiovascular: No chest pain, chest pressure or chest discomfort. No palpitations. Positive right lower extremity edema Respiratory: No shortness of breath, cough or sputum production. Gastrointestinal: No anorexia, nausea, vomiting or diarrhea. No abdominal pain or blood in stool. Genitourinary: No burning micturition. No urinary frequency or incontinence. Musculoskeletal: No muscle pain, back pain, joint pain or stiffness. Positive right lower extremity pain Neurologic: No headache. No dizziness. No numbness or tingling. Psychiatric: No depression or anxiety. Yes all other systems are reviewed and are negative PMFSH Past Medical History Attestation statement: The following information was validated with the patient. Source: old records reviewed Medical History Asthma Hemorrhoids Hypercholesterolemia Hypertension Impaired glucose tolerance Lumbar herniated disc Nonsustained ventricular tachycardia Obstructive sleep apnea PVCs (premature ventricular contractions) Supraventricular tachycardia Traumatic tear of supraspinatus tendon of right shoulder Surgical History History of arthroscopy of left knee History of cataract surgery History of tonsillectomy Total knee replacement status Family History Family History Father Renal cell cancer Mother Gastric cancer Hypertension Diabetes Social History Social History Housing: House Alcohol intake: current Alcohol intake frequency: holidays/special occasions only Patient Tobacco Use Status: Former Tobacco user Quit Date: Years Smoked: 1969 e-Cigarette/Vaping Use: Never Used Second Hand Smoke Exposure: No service: No Current occupational status: employed Current occupational exposures/hazards: No Cognitive needs: No Hearing needs: No Vision needs: Yes Physical Exam Vital Signs: Vital Signs: Last Vital Signs Temp 97.8 F 11/24/21 11:07 Pulse 60 11/24/21 13:21 Resp 14 11/24/21 13:21 BP 172/87 H 11/24/21 13:21 Pulse Ox 97 11/24/21 13:21 BMI result Body Mass Index 28.2 Appearance: Alert.?Oriented to person, place and time. No acute distress.?Normal affect. Eyes: Pupils equal, round and reactive to light.? ENT: Pharynx normal.?? Neck: Normal inspection.? Neck supple.?? CVS: Heart sounds normal. Normal heart rate and rhythm.? Pulses normal.?? Respiratory: No respiratory distress.? Lung sounds clear to auscultation bilaterally?? Abdomen: Soft and non-tender. Skin: Skin warm and dry.? Normal skin color.? Extremities: 1+ nonpitting edema to the right lower extremity. No erythema. No streaking of the leg. Palpable DP/PT pulse 2 +bilaterally. Point tenderness along the medial thigh just superior to the knee. Neuro: Moves all extremities spontaneously. Sensation intact bilaterally. No motor deficits Ambulates with normal steady gait. Course Course Course Narrative: Patient is a 71-year-old male with a recent diagnosis of DVT, evaluated in the emergency department 11/17/2021 1 week ago for right lower extremity DVT, was initially started on Eliquis 10 mg twice daily for 1 week, with plan to decrease to 5 mg twice daily afterwards. At the time he was having pleuritic chest pain, currently denies pain. Presenting to the emergency department today for new onset of medial leg pain just superior to the knee. Obtained repeat venous duplex ultrasound, which reveals a stable thrombus in the mid and distal superficial femoral, popliteal, and proximal posterior tibial veins similar to previous study, no prop with the patient of clot. I discussed these ultrasound findings with patient, advised for discharge home, patient to begin Eliquis 5 mg b.i.d. dosing tomorrow, advised outpatient follow-up with PCP and Hematology, rest, ice, and elevation when possible, additionally use of Tylenol for pain if necessary. He is currently awaiting an outpatient appointment with Hematology, pending call back from office. Patient discharged in stable condition. MDM - Extremity (Nontraumatic) Medical Records Attestation: I reviewed the patient's medical records. Lab Data Result diagrams: 11/24/21 11:22 11/24/21 11:22 Labs: Lab Results 11/24/21 11/24/21 11/24/21 Range/Units 11:22 11:22 11:22 WBC 6.6 (4.8-10.8) X10*3/uL RBC 5.30 (4.60-5.80) X10*6/uL Hgb 14.1 (14.0-18.0) g/dl Hct 43.5 (42.0-52.0) % MCV 82.1 (80.0-98.0) fL MCH 26.6 L (27.0-33.0) pg MCHC 32.4 (31.0-36.0) g/dl RDW 14.5 (11.0-16.0) % Plt Count 228 (160-400) X10*3/uL MPV 8.7 L (9.4-12.4) fL Immature Gran % (Auto) 0.3 (0.0-0.4) % Neut % (Auto) 64.2 (45-73) % Lymph % (Auto) 16.8 L (20-40) % Jennings % (Auto) 12.0 H (2-11) % Eos % (Auto) 4.7 H (0-4) % Baso % (Auto) 2.0 (0-2) % Lymph # (Auto) 1.1 L (1.2-4.9) X10*3/uL Jennings # (Auto) 0.8 (0.1-1.2) X10*3/uL Eos # (Auto) 0.3 (0.0-0.4) X10*3/uL Baso # (Auto) 0.1 (0.0-0.2) X10*3/uL Abs Immat Gran (auto) 0.02 (0.00-0.03) X10*3/uL Absolute Neuts (auto) 4.2 (2.0-8.3) x10*3/uL Absolute Nucleated RBC 0.000 (0.0-0.012) X10*3/uL Nucleated RBC % (auto) 0.0 (0.0-0.2) /100WBC PT 16.0 H (9.9-13.0) SEC INR 1.4 H (0.9-1.1) Sodium 143 (135-145) mmol/L Potassium 4.9 (3.3-5.1) mmol/L Chloride 105 (96-108) mmol/L Carbon Dioxide 28 (22-29) mmol/L Anion Gap 15 (12-20) BUN 12 (9-16) mg/dL Creatinine 1.11 (0.5-1.4) mg/dL Estim Creat Clear Calc 74.8 Estimated GFR > 60 Random Glucose 100 (60-115) mg/dL Calcium 9.8 (8.4-10.2) mg/dL Total Bilirubin 0.5 (0.0-1.0) mg/dL AST 20 (5-37) U/L ALT 20 (0-40) U/L Alkaline Phosphatase 74 (39-117) U/L Total Protein 7.8 (6.5-8.0) g/dL Albumin 4.1 (3.5-5.0) g/dL Imaging Data Venous US: Radiologist's impression: US/US venous duplex LE RT IMPRESSION: Stable thrombus visualized in the mid and distal superficial femoral, popliteal and proximal posterior tibial veins similar previous study 11/17/2021. There is no propagation of clot. ? Recommend continued follow-up after one week of anticoagulants. Discharge Plan Discharge Clinical Impression: Venous thromboembolism (VTE) Patient Disposition: Home, Self-Care Instructions: Deep Vein Thrombosis (ED) Additional Instructions: Continue taking Eliquis as previously prescribed. You may apply ice to the area of pain, and elevate the extremity when possible. Be sure to rest. You may use Tylenol in addition as needed for pain. Please follow-up with primary care provider, and follow-up with Hematology. Return to the emergency department any new or worsening symptoms or concerns, if you develop chest pain, shortness of breath, difficulty breathing, severe or worsening leg pain, inability to walk please return back to the emergency department. Prescriptions: No Action rosuvastatin [Crestor] 40 mg tablet 40 mg PO DAILY Qty: 90 3RF metoprolol succinate 50 mg tablet extended release 24 hr 50 mg PO QPM Qty: 90 2RF losartan 25 mg tablet 25 mg PO DAILY Qty: 90 2RF diclofenac sodium [Arthritis Pain (diclofenac)] 1 % gel 2 g topical QID PRN (Reason: pain) 10 Days Qty: 100 0RF Rx Instructions: apply to single elbow, wrist or hand; for hand includes palm/fingers/back of hand naproxen 500 mg tablet 500 mg PO BID 90 Days Qty: 180 0RF metoprolol succinate 100 mg tablet extended release 24 hr 100 mg PO QAM Qty: 90 2RF fexofenadine [Yumi Allergy] 180 mg Tablet 180 mg PO DAILY 0RF cholecalciferol (vitamin D3) 25 mcg (1,000 unit) capsule 25 mcg PO DAILY 0RF aspirin [Adult Aspirin Regimen] 81 mg tablet,delayed release (DR/EC) 81 mg PO DAILY 0RF sildenafil [Viagra] 100 mg tablet 100 mg PO DAILY PRN0RF Rx Instructions: administer 30 minutes to 4 hours before activity Eliquis 5 mg tablet 5 mg PO BID 90 Days Qty: 180 0RF Interventions: ED Discharge Assessment Last Done: 11/24/21 13:48 Discharge Date/Time: 11/24/21 13:49
== END 2021-11-24 13:49 | disposition home or self-care (01) ==
PROVIDERS: Emergency Provider Emergency Medicine; PCP Internal Medicine
DX: I82.811 Embolism and thrombosis of superficial veins of right lower extremity (principal); M79.604 Pain in right leg; I10 Essential (primary) hypertension; J45.909 Unspecified asthma, uncomplicated; Z79.01 Long term (current) use of anticoagulants
CPT/HCPCS: 36415; 80053; 85025; 85610; 93971; 99282; 99284

== ENCOUNTER → 2021-11-29 14:18 | Outpatient (BNV) | payer MEDICARE, SELFPAY | PROVIDERS: PCP Internal Medicine; Referring Provider Internal Medicine; Visit Provider Internal Medicine Medical Oncology | DX: I82.401 Acute embolism and thrombosis of unspecified deep veins of right lower extremity (principal) | CPT/HCPCS: 99204; 99213; 99214 ==

== ENCOUNTER → 2022-03-15 14:28 | Outpatient (BNVA) | payer MEDICARE, SELFPAY | PROVIDERS: PCP Internal Medicine; Visit Provider Internal Medicine | DX: R05.9 Cough, unspecified (principal); J30.9 Allergic rhinitis, unspecified; J45.20 Mild intermittent asthma, uncomplicated; G47.33 Obstructive sleep apnea (adult) (pediatric) | CPT/HCPCS: 99202 ==

== ENCOUNTER 2022-03-16 13:44 | Outpatient (REF) | payer MEDICARE, SELFPAY ==
--- NOTE | ~2022-03-16 | US_ITS ---
EXAMINATION: RIGHT LOWER EXTREMITY DEEP VENOUS ULTRASOUND CLINICAL INFORMATION: History of DVT COMPARISON: Right lower extremity DVT study 11/24/2021 TECHNIQUE: Duplex Doppler imaging with compression maneuvers were performed of the right lower extremity deep venous system. FINDINGS: The visualized common femoral and proximal most portion of the superficial femoral veins demonstrate normal compressibility and color flow without evidence of venous thrombosis. The midportion of the right superficial femoral vein continues to BE nonocclusive and demonstrate normal color flow consistent with thrombus. The distal superficial femoral vein and popliteal vein demonstrate normal compressibility and color flow consistent with patency. Visualized portions of the calf veins demonstrate normal color fill-in suggesting patency. There is no evidence of a Jones's cyst. US/US venous duplex LE RT IMPRESSION: Persistent but improving thrombus within the right lower extremity. On today's imaging, thrombus is only noted within the midportion of the right superficial femoral vein.
== END 2022-03-16 13:45 | disposition home or self-care (01) ==
LOC: HO.US 13:44
PROVIDERS: Visit Provider Internal Medicine Medical Oncology
DX: I82.401 Acute embolism and thrombosis of unspecified deep veins of right lower extremity (principal)
CPT/HCPCS: 93971

== ENCOUNTER 2022-04-06 13:53 | Outpatient (REF) | payer MEDICARE, SELFPAY ==
--- NOTE | 2022-04-06 15:12 | PFT_ITS ---
INDICATION: Cough. SPIROMETRY: FEV1 to FVC of 82% with an FEV1 of 3.57 L, which is 98% predicted, FVC of 4.35 L, which is 87% predicted. No significant response to bronchodilators noted. Maximum voluntary ventilation 105% predicted. LUNG VOLUMES: Total lung capacity 90% predicted with expiratory reserve volume of 24% predicted. DIFFUSION CAPACITY: DLCO 56% predicted. COMPARISONS: None. INTERPRETATION: No obstructive nor restrictive ventilatory defects identified. No significant response to bronchodilators noted. Normal maximum voluntary ventilation. Lung volumes are normal except for decrease in the expiratory reserve volume secondary to an elevated BMI. However, the patient does have isolated moderate diffusion impairment. Need to consider occult interstitial lung conditions and/or pulmonary vascular condition. Should also correct for hemoglobin. The patient does correct partially when correcting for the alveolar volume, but otherwise clinical correlation warranted. MD RAUL Mitchell/MAJO / [id number]
== END 2022-04-06 13:54 | disposition home or self-care (01) ==
LOC: HO.RESP 13:53
PROVIDERS: Visit Provider Internal Medicine
DX: J45.20 Mild intermittent asthma, uncomplicated (principal); R05.9 Cough, unspecified; J30.9 Allergic rhinitis, unspecified
CPT/HCPCS: 94060; 94727; 94729

== ENCOUNTER → 2022-04-11 14:54 | Outpatient (BNVA) | payer MEDICARE, SELFPAY | PROVIDERS: PCP Internal Medicine; Visit Provider Internal Medicine | DX: J30.9 Allergic rhinitis, unspecified (principal); R05.9 Cough, unspecified; G47.33 Obstructive sleep apnea (adult) (pediatric) | CPT/HCPCS: 99212 ==

== ENCOUNTER 2022-06-13 17:15 | Outpatient (REF) | payer MEDICARE, SELFPAY ==
[2022-06-13 18:04] LABS: Influenza A PCR POSITIVE (Negative); Influenza B PCR NEGATIVE (Negative); Resp Syncy Virus RNA Qual PCR NEGATIVE (Negative); SARS COV2 PCR INHOUSE NEGATIVE (Negative)
== END 2022-06-13 17:16 | disposition home or self-care (01) ==
LOC: HO.LNP 17:15
PROVIDERS: Visit Provider Nurse Practitioner Family
DX: Z20.822 Contact with and (suspected) exposure to COVID-19 (principal); R09.89 Other specified symptoms and signs involving the circulatory and respiratory systems
CPT/HCPCS: 0241U

== ENCOUNTER 2022-07-18 11:07 | Outpatient (REF) | payer MEDICARE, SELFPAY ==
[2022-07-18 11:27] LABS: MANUAL DIFF FLAG NO
[2022-07-18 12:00] LABS: Basophils Absolute Auto 0.2 X10*3/uL (0.0-0.2); Basophils Percent Auto 2.7 % (0-2); Eosinophils Absolute Auto 0.2 X10*3/uL (0.0-0.4); Eosinophils Percent Auto 2.3 % (0-4); Hematocrit 42.3 % (42.0-52.0); Hemoglobin 13.4 g/dl (14.0-18.0); Imm Gran Abs Auto 0.02 X10*3/uL (0.00-0.03); Imm Gran Pct Auto 0.3 % (0.0-0.4); Immature Retic Fraction 12.7 % (2.3-13.4); Lymphocytes Absolute Auto 1.3 X10*3/uL (1.2-4.9); Mean Corpuscular HGB Conc 31.7 g/dl (31.0-36.0); Mean Corpuscular Hemoglobin 25.7 pg (27.0-33.0); Mean Platelet Volume 10.1 fL (9.4-12.4); Monocytes Absolute Auto 0.8 X10*3/uL (0.1-1.2); Monocytes Percent Auto 11.3 % (2-11); Neutrophils Absolute Auto 4.3 x10*3/uL (2.0-8.3); Neutrophils Percent Auto 64.4 % (45-73); Platelet Count 228 X10*3/uL (160-400); Red Blood Count 5.22 X10*6/uL (4.60-5.80); Red Cell Distribution Width 14.4 % (11.0-16.0); Retic HGB Equivalent 31.5 pg (30.0-35.0); Reticulocyte Percent 1.6 % (0.5-1.8); Reticulocytes Absolute 0.081 X10*6/uL (0.026-0.095); White Blood Count 6.6 X10*3/uL (4.8-10.8)
[2022-07-18 12:18] LABS: Estimated Average Glucose 126 mg/dL; Hemoglobin A1C 150.6915 umol/L
[2022-07-18 13:03] LABS: Alanine Aminotransferase 11 U/L (0-40); Albumin Level 3.9 g/dL (3.5-5.0); Alkaline Phosphatase 84 U/L (39-117); Anion Gap 14 (12-20); Aspartate Amino Transferase 16 U/L (5-37); Bilirubin Total 0.7 mg/dL (0.0-1.0); Blood Urea Nitrogen 19 mg/dL (9-16); Calcium 9.3 mg/dL (8.4-10.2); Carbon Dioxide 27 mmol/L (22-29); Chloride 105 mmol/L (96-108); Cholesterol 155 mg/dL; Estimated Glomerular Filt Rate 53; Glucose Random 105 mg/dL (60-115); HDL Cholesterol 42 mg/dL; LDL Cholesterol Calculated 93 mg/dl; Potassium 4.9 mmol/L (3.3-5.1); Sodium 141 mmol/L (135-145); Total Protein 7.1 g/dL (6.5-8.0); Triglycerides 100 mg/dL
[2022-07-18 13:21] LABS: Free T4 (Free Thyroxine) 1.02 ng/dL (0.71-1.85); Thyroid Stimulating Hormone 1.65 uIU/mL (0.32-4.0)
[2022-07-18 13:24] LABS: Folate 7.3 ng/mL (> or = 4.0); Vitamin B12 611 pg/mL (200-900)
== END 2022-07-18 11:08 | disposition home or self-care (01) ==
LOC: HO.LAB 11:07
PROVIDERS: PCP Internal Medicine; Visit Provider Internal Medicine
DX: R79.89 Other specified abnormal findings of blood chemistry (principal); R73.02 Impaired glucose tolerance (oral); E78.00 Pure hypercholesterolemia, unspecified
CPT/HCPCS: 36415; 80053; 80061; 82607; 82746; 83036; 84439; 84443; 85025; 85045

== ENCOUNTER 2022-08-04 08:12 | Outpatient (REF) | payer MEDICARE, SELFPAY ==
--- NOTE | ~2022-08-04 | CT_ITS ---
EXAMINATION: CT ANGIOGRAM OF THE CHEST WITH AND WITHOUT CONTRAST (CT PULMONARY ANGIOGRAM FOR PE) CLINICAL INFORMATION: Reason for Exam R05.9 - Cough, unspecified COMPARISON: Previous chest x-ray most recent October 2021 TECHNIQUE: Prior to contrast administration, noncontrast localization images were obtained. Subsequently, multidetector volumetric imaging was performed from the thoracic inlet to below the diaphragms following the administration of 70 mL Omnipaque 350 intravenous contrast. No contrast reaction reported Sagittal, coronal, and MIP oblique sagittal reformatted images were obtained on the CT workstation, uploaded to PACS, and reviewed. This CT examination was performed using dose optimization techniques as appropriate, variously including the following: *Automated exposure control *Adjustment of mA and/or kV according to patient size (this includes techniques or standardized protocols for targeted exams where dose is matched to indication/reason for exam; i.e. extremities or head) *Use of iterative reconstruction technique Total exam dose-length product 155 mGy-cm FINDINGS: QUALITY OF STUDY/CONTRAST BOLUS: Satisfactory. PULMONARY ARTERIES: No central or segmental pulmonary emboli. THORACIC AORTA: No aneurysm or dissection. LUNG: There is linear scarring or subsegmental atelectasis at the lung bases. There is mild bilateral lower lobe bronchial wall thickening and some bronchial soft tissue opacification suggestive of airways disease. There is a 4 mm peripheral or subpleural right lower lobe nodule axial image 366 series 7. PLEURA: No pleural effusion or pneumothorax. MEDIASTINUM: Normal heart size. No pericardial effusion. There is a prominent right subcarinal or infrahilar lymph node that measures 1.6 x 2 cm in AP and transverse dimension. There are additional smaller hilar and mediastinal lymph nodes. No evidence of septal bowing or right heart strain. CORONARY ARTERY CALCIFICATION: Moderate. CHEST WALL/AXILLA: No axillary or internal mammary lymphadenopathy. OSSEOUS STRUCTURES: No acute or suspicious osseous abnormality. UPPER ABDOMEN: 1.9 x 2.2 cm splenic artery aneurysm. No reflux of contrast into the hepatic veins to suggest elevated right heart pressures. CT/CT angio chest PE protocol IMPRESSION: No evidence of pulmonary embolism. Prominent right subcarinal or infrahilar lymph node. Short-term CT follow-up in 6 months should be considered. Probable mild airways disease greatest in the lower lobes. 4 mm right lower lobe pulmonary nodule. According to the UPDATED 2017 Fleischner Society recommendations, the advised follow-up imaging for less than 6 mm solid nodule: Low risk, no chest CT follow-up and high risk, optional chest CT follow-up in one year. VTE: negative
[2022-08-04] MEDS: iohexoL 350 MG/ML 100 ML INFUS..BTL IV (09:07)
== END 2022-08-04 08:13 | disposition home or self-care (01) ==
LOC: HO.CT 08:12
PROVIDERS: PCP Internal Medicine; Visit Provider Internal Medicine
DX: I82.401 Acute embolism and thrombosis of unspecified deep veins of right lower extremity (principal); R05.9 Cough, unspecified
CPT/HCPCS: 71275; Q9967

== ENCOUNTER 2022-10-16 11:30 | Outpatient (REF) | payer MEDICARE, SELFPAY ==
--- NOTE | ~2022-10-16 | XR_ITS ---
EXAMINATION: XR SHOULDER, LEFT CLINICAL INFORMATION: Pain, left shoulder. COMPARISON: None available. TECHNIQUE: AP external rotation, Grashey, scapular Y, and axillary views of the left shoulder. FINDINGS: There is mild reduction in the glenohumeral and AC joint space. No periarticular spurring. No joint effusion. The soft tissues are normal. XR/XR shoulder LT min 2V IMPRESSION: Mild degenerative changes left shoulder. No visible acute fracture or dislocation seen.
== END 2022-10-16 11:31 | disposition home or self-care (01) ==
LOC: HO.XRAY 11:30
PROVIDERS: PCP Internal Medicine; Visit Provider Internal Medicine
DX: M25.512 Pain in left shoulder (principal)
CPT/HCPCS: 73030

== ENCOUNTER → 2022-11-13 09:45 | Outpatient (BNVA) | payer MEDICARE, SELFPAY | PROVIDERS: PCP Internal Medicine; Referring Provider Internal Medicine; Visit Provider Internal Medicine Cardiovascular Disease | DX: I47.29 Other ventricular tachycardia (principal); Z79.899 Other long term (current) drug therapy | CPT/HCPCS: 93005; 99212 ==

== ENCOUNTER 2022-11-27 20:11 | Emergency (ER) | payer MEDICARE, SELFPAY ==
--- NOTE | ~2022-11-27 | XR_ITS ---
EXAMINATION: XR CHEST CLINICAL INFORMATION: Chest pain. COMPARISON: Chest radiograph dated 11/16/2021; CT chest dated 08/04/2022. TECHNIQUE: Frontal view of the chest was obtained. FINDINGS: The heart, great vessels, pulmonary vasculature and mediastinum are stable. There is mild linear scar/subsegmental atelectasis seen in the peripheral mid right lung and at the peripheral left base. This is stable from 11/16/2021. No new infiltrate, effusion or pneumothorax is seen. There is no acute osseous abnormality. XR/XR chest 1V IMPRESSION: There is continued stable, chronic bilateral minor scar/subsegmental atelectasis. No new infiltrate or congestive heart failure is seen.
[2022-11-27 20:14] VITALS: BP 183/99; PULSE 75; RESP 16; TEMP 36.6; O2SAT 97; BMI 28.2
--- NOTE | 2022-11-27 20:23 | ECG_ITS ---
Test Reason : CHEST PAIN Blood Pressure : / mmHG Vent. Rate : 068 BPM Atrial Rate : 068 BPM P-R Int : 156 ms QRS Dur : 098 ms QT Int : 400 ms P-R-T Axes : 046 009 034 degrees QTc Int : 425 ms Normal sinus rhythm Normal ECG When compared with ECG of 17-NOV-2021 16:57, No significant change was found Referred By: Joseph Ray Electronically Signed By:Antwon Valdez
--- NOTE | 2022-11-27 20:28 | ED.CHESTPAIN ---
HPI - Chest Pain General Chief Complaint: Chest Pain Stated Complaint: chest pain high bp Related Data Home Medications Medication Instructions Recorded Confirmed cholecalciferol (vitamin D3) 25 25 mcg PO DAILY 04/22/20 11/13/22 mcg (1,000 unit) capsule sildenafil 100 mg tablet (Viagra) 100 mg PO DAILY PRN Sexual Activity 04/22/20 11/13/22 tizanidine 4 mg tablet 4 mg PO Q8H PRN 07/18/22 11/13/22 Previous Rx's Medication Instructions Recorded apixaban 5 mg tablet (Eliquis) 5 mg PO BID 90 days #180 tabs 06/08/22 albuterol sulfate 90 mcg/actuation 2 puff inhalation Q4-6H PRN 08/17/22 aerosol inhaler shortness of breath or wheezing #8.5 grams losartan 25 mg tablet 25 mg PO DAILY #90 tabs 08/17/22 metoprolol succinate 100 mg 100 mg PO QAM #90 tabs 08/17/22 tablet,extended release 24 hr metoprolol succinate 50 mg 50 mg PO QPM #90 tabs 08/17/22 tablet,extended release 24 hr rosuvastatin 40 mg tablet (Crestor) 40 mg PO DAILY #90 tabs 08/17/22 hydrocodone 5 mg-acetaminophen 325 1 tab PO Q4-6H PRN pain #30 tabs 10/17/22 mg tablet Allergies Allergy/AdvReac Type Severity Reaction Status Date / Time lisinopril Allergy Unknown Unknown Verified 11/13/22 09:53 [facility] Past Medical History Medical History Allergic rhinitis Asthma Cough Hemorrhoids Hypercholesterolemia Hypertension Impaired glucose tolerance Lumbar herniated disc Nonsustained ventricular tachycardia Obstructive sleep apnea ULISSES (obstructive sleep apnea) PVCs (premature ventricular contractions) Right leg DVT Supraventricular tachycardia Traumatic tear of supraspinatus tendon of right shoulder Surgical History History of arthroscopy of left knee History of cataract surgery History of tonsillectomy Total knee replacement status Family History Family History Father Renal cell cancer Mother Gastric cancer Diabetes Hypertension Breast cancer Social History Social History Household Members: Spouse Housing: House Are you a primary career transition specialist to a significant other at home: No Do you presently have visiting nurse or other home services: No Alcohol intake: current Alcohol intake frequency: holidays/special occasions only Patient Tobacco Use Status: Former Tobacco user Quit Date: Years Smoked: 1969 e-Cigarette/Vaping Use: Never Used Second Hand Smoke Exposure: No service: Yes Current occupational status: employed and retired Current occupational exposures/hazards: No Cognitive needs: No Hearing needs: No Vision needs: Yes Physical Exam Vital Signs: Vital Signs: Last Vital Signs Temp 97.8 F 11/27/22 20:14 Pulse 75 11/27/22 20:14 Resp 16 11/27/22 20:14 BP 183/99 H 11/27/22 20:14 Pulse Ox 97 11/27/22 20:14 O2 Del Method Room Air 11/27/22 20:14 BMI result Body Mass Index 28.2 Course Course Course Narrative: Patient complains of an episode of chest pain and lightheadedness, lightheadedness has resolved but he still has some chest pain, it briefly radiated to the left arm He has a history of an arrhythmia and gets frequent similar episodes but this 1 lasted significantly longer than normal any comes to the ER At this time he has still some mild left-sided chest pain, no dizziness, it was not related to exertion, there was no vomiting no diaphoresis no fainting He does take Eliquis Labs were ordered EKG and chest x-ray were ordered This is rapid medical exam in triage pending full evaluation by provider in the department Discharge Plan Discharge Prescriptions: No Action Eliquis 5 mg tablet 5 mg PO BID 90 Days Qty: 180 0RF losartan 25 mg tablet 25 mg PO DAILY Qty: 90 2RF metoprolol succinate 50 mg tablet extended release 24 hr 50 mg PO QPM Qty: 90 3RF metoprolol succinate 100 mg tablet extended release 24 hr 100 mg PO QAM Qty: 90 3RF rosuvastatin [Crestor] 40 mg tablet 40 mg PO DAILY Qty: 90 3RF albuterol sulfate 90 mcg/actuation HFA aerosol inhaler 2 puff inhalation Q4-6H PRN (Reason: shortness of breath or wheezing) Qty: 8.5 0RF cholecalciferol (vitamin D3) 25 mcg (1,000 unit) capsule 25 mcg PO DAILY sildenafil [Viagra] 100 mg tablet 100 mg PO DAILY PRN (Reason: Sexual Activity) Rx Instructions: administer 30 minutes to 4 hours before activity tizanidine 4 mg tablet 4 mg PO Q8H PRN hydrocodone-acetaminophen 5-325 mg tablet 1 tab PO Q4-6H PRN (Reason: pain) Qty: 30 0RF
[2022-11-27 21:30] VITALS: BP 165/80; PULSE 74; RESP 16; TEMP 36.7; O2SAT 96
--- NOTE | 2022-11-27 21:32 | PC.NURSE ---
pt brought back to room 11, on the monitor. vitals stable. dull chest pain 2/10, no sob noted.
--- NOTE | 2022-11-27 21:44 | ED.CHESTPAIN ---
HPI - Chest Pain General Chief Complaint: Chest Pain Stated Complaint: chest pain high bp Time Seen by Provider: 11/27/22 21:28 History of Present Illness HPI narrative: Patient is a 72-year-old male presents today with having chest pain that is on the left side. Not associated with any shortness of breath no diaphoresis. The symptoms started at approximately 20:00. The pain is dull. Nonradiating. Not associated with any fever chills. Patient was sitting at the time nothing really makes it better. No history diabetes positive history of hypertension positive history of hypercholesterolemia no history of smoking no history of [facility] history of nonsustained V-tach currently on metoprolol no family history of coronary artery disease no travel history positive history DVT been on Eliquis and is compliant. Patient is from home. History of factor 5 Leiden. Patient did also feel some lightheadedness associated with this. Never actually passed out. Lasting few minutes. Related Data Home Medications Medication Instructions Recorded Confirmed cholecalciferol (vitamin D3) 25 25 mcg PO DAILY 04/22/20 11/13/22 mcg (1,000 unit) capsule sildenafil 100 mg tablet (Viagra) 100 mg PO DAILY PRN Sexual Activity 04/22/20 11/13/22 tizanidine 4 mg tablet 4 mg PO Q8H PRN 07/18/22 11/13/22 Previous Rx's Medication Instructions Recorded apixaban 5 mg tablet (Eliquis) 5 mg PO BID 90 days #180 tabs 06/08/22 albuterol sulfate 90 mcg/actuation 2 puff inhalation Q4-6H PRN 08/17/22 aerosol inhaler shortness of breath or wheezing #8.5 grams losartan 25 mg tablet 25 mg PO DAILY #90 tabs 08/17/22 metoprolol succinate 100 mg 100 mg PO QAM #90 tabs 08/17/22 tablet,extended release 24 hr metoprolol succinate 50 mg 50 mg PO QPM #90 tabs 08/17/22 tablet,extended release 24 hr rosuvastatin 40 mg tablet (Crestor) 40 mg PO DAILY #90 tabs 08/17/22 hydrocodone 5 mg-acetaminophen 325 1 tab PO Q4-6H PRN pain #30 tabs 10/17/22 mg tablet Allergies Allergy/AdvReac Type Severity Reaction Status Date / Time lisinopril Allergy Unknown Unknown Verified 11/13/22 09:53 Review of Systems Review of Systems: Positive chest pain Yes all other systems are reviewed and are negative [facility] Past Medical History Attestation statement: The following information was validated with the patient. Medical History Allergic rhinitis Asthma Cough Hemorrhoids Hypercholesterolemia Hypertension Impaired glucose tolerance Lumbar herniated disc Nonsustained ventricular tachycardia Obstructive sleep apnea ULISSES (obstructive sleep apnea) PVCs (premature ventricular contractions) Right leg DVT Supraventricular tachycardia Traumatic tear of supraspinatus tendon of right shoulder Surgical History History of arthroscopy of left knee History of cataract surgery History of tonsillectomy Total knee replacement status Family History Family History Father Renal cell cancer Mother Gastric cancer Diabetes Hypertension Breast cancer Social History Social History Household Members: Spouse Housing: House Are you a primary home health care worker to a significant other at home: No Do you presently have visiting nurse or other home services: No Alcohol intake: former Patient Tobacco Use Status: Former Tobacco user Quit Date: Years Smoked: 1970 Smoked in Last 30 Days: No e-Cigarette/Vaping Use: Never Used Second Hand Smoke Exposure: No Use of substances other than those prescribed or required for medical reasons: No Advance Directives: No Advance Directives Information Provided: Yes service: Yes Current occupational status: employed and retired Current occupational exposures/hazards: No Cognitive needs: No Hearing needs: No Vision needs: Yes Physical Exam Vital Signs: Vital Signs: Last Vital Signs Temp 98.1 F 11/27/22 23:48 Pulse 57 11/27/22 23:48 Resp 12 11/27/22 23:48 BP 138/80 11/27/22 23:48 Pulse Ox 97 11/27/22 23:48 O2 Del Method Room Air 11/27/22 23:48 BMI result Body Mass Index 28.2 Appearance: Alert. Oriented X3. No acute distress. Eyes: Pupils equal, round and reactive to light. ENT: Pharynx normal. Neck: Normal inspection. Neck supple. No lymph nodes noted. No crepitus CVS: Normal heart rate and rhythm. Pulses normal. Normal S1 and S2 Respiratory: No respiratory distress. Breath sounds normal. No Wheezing. No rales Abdomen: Soft and nontender. No rigidity. No distention. good BS x4 Skin: Skin warm and dry. Normal skin color. Normal skin turgor. Extremities: No lower extremity edema. Neurovascular intact to all extremities. No Lacerations. No Rash Neuro: Oriented X 3. No motor deficit. No sensory deficit. Moving all extermities. No slurred speech Medications Administered Discontinued Medications Generic Name Dose Route Start Last Admin Trade Name Abilioq PRN Reason Stop Dose Admin Aspirin 324 mg 11/27/22 21:43 11/27/22 22:03 Aspirin 81 Mg Tab.Chew PO 11/27/22 21:44 324 mg ONCE ONE Administration Medical Decision Making Medical Decision Making [facility] Narrative: Well appearing not acute distress. Positive chest pain. Significant cardiac risks including hypertension, hypercholesterolemia in a patient that has a history of nonsustained V-tach. Patient is 72 years old. Two sets of cardiac enzymes are negative. Patient's chest pain atypical. He is 72 years old. A does have a history of nonsustained V-tach. Had a near syncopal episode today. Patient offer admission for further observation and monitoring. He declined. Understood risks including VA irregular heartbeat. Patient is leaving against medical advice. Patient's hemoglobin was baseline unlikely to be the cause of patient's problem. My interpretation patient's x-ray showed no pneumonia no pneumothorax Differential Diagnosis Near syncope secondary to nonsustained V-tach, ACS, Lab Data [facility] Lab Attestation statement: I reviewed the patient's lab results. 11/27/22 21:58 11/27/22 21:58 Labs: Lab Results 11/27/22 11/27/22 11/27/22 Range/Units 21:58 21:58 21:58 WBC 7.5 (4.8-10.8) X10*3/uL RBC 5.31 (4.60-5.80) X10*6/uL Hgb 13.8 L (14.0-18.0) g/dl Hct 42.2 (42.0-52.0) % MCV 79.5 L (80.0-98.0) fL MCH 26.0 L (27.0-33.0) pg MCHC 32.7 (31.0-36.0) g/dl RDW 14.0 (11.0-16.0) % Plt Count 236 (160-400) X10*3/uL MPV 9.4 (9.4-12.4) fL Immature Gran % (Auto) 0.1 (0.0-0.4) % Neut % (Auto) 67.8 (45-73) % Lymph % (Auto) 14.9 L (20-40) % Maury % (Auto) 11.1 H (2-11) % Eos % (Auto) 4.0 (0-4) % Baso % (Auto) 2.1 H (0-2) % Lymph # (Auto) 1.1 L (1.2-4.9) X10*3/uL Maury # (Auto) 0.8 (0.1-1.2) X10*3/uL Eos # (Auto) 0.3 (0.0-0.4) X10*3/uL Baso # (Auto) 0.2 (0.0-0.2) X10*3/uL Abs Immat Gran (auto) 0.01 (0.00-0.03) X10*3/uL Absolute Neuts (auto) 5.1 (2.0-8.3) x10*3/uL Absolute Nucleated RBC 0.000 (0.0-0.012) X10*3/uL Nucleated RBC % (auto) 0.0 (0.0-0.2) /100WBC Sodium (135-145) mmol/L Potassium (3.3-5.1) mmol/L Chloride (96-108) mmol/L Carbon Dioxide (22-29) mmol/L Anion Gap (12-20) BUN (9-16) mg/dL Creatinine (0.5-1.4) mg/dL Estim Creat Clear Calc Estimated GFR Random Glucose (60-115) mg/dL Calcium (8.4-10.2) mg/dL Troponin I High Sens < 2.7 (<3.5-35.0) ng/L B-Natriuretic Peptide 39 (<100) pg/mL 11/27/22 11/27/22 Range/Units 21:58 23:52 WBC (4.8-10.8) X10*3/uL RBC (4.60-5.80) X10*6/uL Hgb (14.0-18.0) g/dl Hct (42.0-52.0) % MCV (80.0-98.0) fL MCH (27.0-33.0) pg MCHC (31.0-36.0) g/dl RDW (11.0-16.0) % Plt Count (160-400) X10*3/uL MPV (9.4-12.4) fL Immature Gran % (Auto) (0.0-0.4) % Neut % (Auto) (45-73) % Lymph % (Auto) (20-40) % Maury % (Auto) (2-11) % Eos % (Auto) (0-4) % Baso % (Auto) (0-2) % Lymph # (Auto) (1.2-4.9) X10*3/uL Maury # (Auto) (0.1-1.2) X10*3/uL Eos # (Auto) (0.0-0.4) X10*3/uL Baso # (Auto) (0.0-0.2) X10*3/uL Abs Immat Gran (auto) (0.00-0.03) X10*3/uL Absolute Neuts (auto) (2.0-8.3) x10*3/uL Absolute Nucleated RBC (0.0-0.012) X10*3/uL Nucleated RBC % (auto) (0.0-0.2) /100WBC Sodium 144 (135-145) mmol/L Potassium 4.9 (3.3-5.1) mmol/L Chloride 106 (96-108) mmol/L Carbon Dioxide 28 (22-29) mmol/L Anion Gap 15 (12-20) BUN 13 (9-16) mg/dL Creatinine 1.11 (0.5-1.4) mg/dL Estim Creat Clear Calc 73.6 Estimated GFR > 60 Random Glucose 105 (60-115) mg/dL Calcium 9.9 D (8.4-10.2) mg/dL Troponin I High Sens < 2.7 (<3.5-35.0) ng/L B-Natriuretic Peptide (<100) pg/mL Independent Interpretation I performed an independent interpretation of an: EKG Interpretation: My interpretation of patient's EKG showed a sinus rhythm heart rate is 70 TX QRS QT within normal limits there is no acute ST segment elevation noted. Discharge Plan Discharge Clinical Impression: Near syncope, Chest pain Patient Disposition: Left Against Medical Advice Instructions: Chest Pain (DC), Near Syncope (ED), Against Medical Advice (ED) Prescriptions: No Action Eliquis 5 mg tablet 5 mg PO BID 90 Days Qty: 180 0RF losartan 25 mg tablet 25 mg PO DAILY Qty: 90 2RF metoprolol succinate 50 mg tablet extended release 24 hr 50 mg PO QPM Qty: 90 3RF metoprolol succinate 100 mg tablet extended release 24 hr 100 mg PO QAM Qty: 90 3RF rosuvastatin [Crestor] 40 mg tablet 40 mg PO DAILY Qty: 90 3RF albuterol sulfate 90 mcg/actuation HFA aerosol inhaler 2 puff inhalation Q4-6H PRN (Reason: shortness of breath or wheezing) Qty: 8.5 0RF cholecalciferol (vitamin D3) 25 mcg (1,000 unit) capsule 25 mcg PO DAILY sildenafil [Viagra] 100 mg tablet 100 mg PO DAILY PRN (Reason: Sexual Activity) Rx Instructions: administer 30 minutes to 4 hours before activity tizanidine 4 mg tablet 4 mg PO Q8H PRN hydrocodone-acetaminophen 5-325 mg tablet 1 tab PO Q4-6H PRN (Reason: pain) Qty: 30 0RF Referrals: Po,Veronica Julio MD [Primary Care Provider] - Kavin Mcintosh MD [Physician] - Stand Alone Forms: Against Medical Advice
[2022-11-27 22:00] VITALS: BP 129/78; PULSE 87; RESP 16; TEMP 530; TEMP 986; O2SAT 100
[2022-11-27 22:02] LABS: MANUAL DIFF FLAG NO
[2022-11-27] MEDS: Aspirin 81 MG TAB.CHEW 324 MG PO (22:03)
[2022-11-27 22:05] LABS: Basophils Absolute Auto 0.2 X10*3/uL (0.0-0.2); Basophils Percent Auto 2.1 % (0-2); Eosinophils Absolute Auto 0.3 X10*3/uL (0.0-0.4); Hematocrit 42.2 % (42.0-52.0); Hemoglobin 13.8 g/dl (14.0-18.0); Imm Gran Abs Auto 0.01 X10*3/uL (0.00-0.03); Imm Gran Pct Auto 0.1 % (0.0-0.4); Lymphocytes Absolute Auto 1.1 X10*3/uL (1.2-4.9); Lymphocytes Percent Auto 14.9 % (20-40); Mean Corpuscular HGB Conc 32.7 g/dl (31.0-36.0); Mean Corpuscular Volume 79.5 fL (80.0-98.0); Mean Platelet Volume 9.4 fL (9.4-12.4); Monocytes Absolute Auto 0.8 X10*3/uL (0.1-1.2); Monocytes Percent Auto 11.1 % (2-11); Neutrophils Absolute Auto 5.1 x10*3/uL (2.0-8.3); Neutrophils Percent Auto 67.8 % (45-73); Platelet Count 236 X10*3/uL (160-400); Red Blood Count 5.31 X10*6/uL (4.60-5.80); White Blood Count 7.5 X10*3/uL (4.8-10.8)
[2022-11-27 22:22] LABS: Anion Gap 15 (12-20); Blood Urea Nitrogen 13 mg/dL (9-16); Calcium 9.9 mg/dL (8.4-10.2); Carbon Dioxide 28 mmol/L (22-29); Chloride 106 mmol/L (96-108); Creatinine Clr Calc Pharmacy 73.6; Estimated Glomerular Filt Rate > 60; Glucose Random 105 mg/dL (60-115); Potassium 4.9 mmol/L (3.3-5.1); Sodium 144 mmol/L (135-145)
[2022-11-27 22:30] LABS: B Type Natriuretic Peptide 39 pg/mL (<100)
[2022-11-27 22:31] LABS: Troponin-I High Sensitivity < 2.7 ng/L (<3.5-35.0)
--- NOTE | 2022-11-27 23:02 | PC.NURSE ---
pt to ed for CP that is dull in nature, non-radiating intermittantly. pt states that he has no other symptoms except for the dull chest pain. Pt placed on cardiac monitoring, displaying NSR, Hr in the 70s-80s. Pt at the moment is in NAD.
[2022-11-27 23:48] VITALS: BP 138/80; PULSE 57; RESP 12; TEMP 36.7; O2SAT 97
[2022-11-28 00:17] LABS: Troponin-I High Sensitivity < 2.7 ng/L (<3.5-35.0)
== END 2022-11-28 01:40 | disposition left against medical advice (07) ==
PROVIDERS: Physician Assistant Medical; Emergency Provider Emergency Medicine Emergency Medical Services; PCP Internal Medicine
DX: R55 Syncope and collapse (principal); R07.9 Chest pain, unspecified; I10 Essential (primary) hypertension; D68.51 Activated protein C resistance; E78.00 Pure hypercholesterolemia, unspecified; Z86.718 Personal history of other venous thrombosis and embolism; Z79.01 Long term (current) use of anticoagulants; Z79.02 Long term (current) use of antithrombotics/antiplatelets; Z79.899 Other long term (current) drug therapy; Z87.891 Personal history of nicotine dependence
CPT/HCPCS: 36415; 71045; 80048; 83880; 84484; 85025; 93005; 99283; 99285

== ENCOUNTER 2022-12-05 11:32 | Outpatient (REF) | payer MEDICARE, SELFPAY ==
--- NOTE | ~2022-12-05 | US_ITS ---
EXAMINATION: US VENOUS ULTRASOUND WITH DOPPLER LOWER EXTREMITY, RIGHT CLINICAL INFORMATION: Follow-up DVT COMPARISON: Previous ultrasounds most recent February 2022 TECHNIQUE: Ultrasound of the deep veins is performed from the hip to the calf with compression sonography and color and pulse Doppler assessment. Spectral analysis with color-flow imaging is performed. FINDINGS: The right common femoral vein is patent. The right greater saphenous vein in the upper thigh is patent. The right profunda femoral vein is patent. There is thrombus seen in the right superficial femoral vein. The right superficial femoral vein in the proximal thigh is small in caliber and thrombus appears echogenic. This is nonocclusive and probably chronic. There is more hypoechoic thrombus seen in the right superficial femoral vein in the mid thigh. This is hypoechoic and appears more occlusive. The right superficial femoral vein in the distal thigh is more normal in caliber. There is a hypoechoic partially occlusive thrombus. The right popliteal vein is normal in caliber. There is mixed hyper and hypoechoic nonocclusive thrombus. There is mixed hyper and hypoechoic, nonocclusive thrombus in the posterior tibial and peroneal veins. It is difficult to determine whether this represents acute or chronic thrombus in the superficial femoral vein in the mid and distal thigh, popliteal vein and posterior tibial and peroneal veins. Thrombus appears increased compared to most recent exam February 2022 when it was only seen in the superficial femoral vein in the mid thigh. There is no Jones's cyst. US/US venous duplex LE RT IMPRESSION: Persistent right leg DVT. This appears chronic in the superficial femoral vein in the proximal thigh. It is difficult to determine whether the thrombus is acute or chronic in the superficial femoral vein in the mid and distal thigh, popliteal vein and posterior tibial and peroneal veins in the calf. Thrombus appears increased compared to February 2022 when it was only seen in the superficial femoral vein in the mid thigh. Follow-up exam to look for interval change may be helpful.
== END 2022-12-05 11:33 | disposition home or self-care (01) ==
LOC: HO.HMGCX 11:32
PROVIDERS: PCP Internal Medicine; Visit Provider Internal Medicine Medical Oncology
DX: I82.401 Acute embolism and thrombosis of unspecified deep veins of right lower extremity (principal)
CPT/HCPCS: 93971

== ENCOUNTER 2023-03-23 11:27 | Outpatient (AMB) | payer MEDICARE, SELFPAY ==
[2023-03-23 11:41] VITALS: BP 148/82; PULSE 78; O2SAT 98; BMI 28.6
--- NOTE | 2023-03-23 11:41 | MHC.PC.OV ---
Vital Signs 03/23/23 11:41 Height 6 ft 2 in Weight 223 lb BMI 28.6 BP 148/82 H Blood Pressure Location Lt brachial Position Sitting Pulse 78 Pulse Source Pulse Oximeter Pulse Oximetry (%) 98 Oxygen Delivery Method Room Air Intake Visit Reasons: PE Allergies lisinopril Allergy (Unknown, Verified 03/23/23 11:42) Unknown Medication List - Last Reconciled 03/23/23 by Veronica Malone MD albuterol sulfate 90 mcg/actuation 2 puffs inhalation Q4-6H PRN apixaban (Eliquis) 5 mg PO BID 90 days cholecalciferol (vitamin D3) 25 mcg PO DAILY hydrocodone-acetaminophen 5-325 mg 1 tab PO Q4-6H PRN losartan 25 mg PO DAILY metoprolol succinate ER 50 mg PO QPM metoprolol succinate ER 100 mg PO QAM rosuvastatin (Crestor) 40 mg PO DAILY sildenafil (Viagra) 100 mg PO DAILY PRN tizanidine 4 mg PO Q8H PRN Tobacco use date assessed: 07/18/22 Fall risk assessment: No Falls in past year Last assessed Fall Risk: 03/23/23 Dental Screening Dental Screen Date: 03/23/23 Did you have a dental visit in the last 12 months?: Yes Did you have a dental problem in the last 6 months where you did not have access to dental care?: No Was dental information given to patient?: Patient has dentist HPI PE HPI Details 73 year old overweight male with so obstructive sleep apnea anticardiolipin antibody positive, asthma hypercholesterolemia, hypertension coming in for physical last seen in September 2022. Patient has a right leg DVT follows up with hematology oncology recent hospital/ER visit for chest pain patient follows up with Cardiology also for the DVT on anticoagulation 11/17/2022 December 05 followed up with an ultrasound continues to have right leg DVT. History of ventricular tachycardia follows up with Cardiology normal structure of the heart on metoprolol. chest pain palpitations L arm lesion and tongue pain [facility] Medical History Allergic rhinitis Asthma Cough Hemorrhoids Hypercholesterolemia Hypertension Impaired glucose tolerance Lumbar herniated disc Nonsustained ventricular tachycardia Obstructive sleep apnea ULISSES (obstructive sleep apnea) PVCs (premature ventricular contractions) Right leg DVT Supraventricular tachycardia Traumatic tear of supraspinatus tendon of right shoulder Surgical History History of arthroscopy of left knee History of cataract surgery History of tonsillectomy Total knee replacement status Family History Father Renal cell cancer Mother Gastric cancer Diabetes Hypertension Breast cancer Social History (Updated 03/23/23 @ 12:39 by Veronica Malone MD) Household Members: Spouse Housing: House Are you a primary healthcare consulting manager to a significant other at home: No Do you presently have visiting nurse or other home services: No Alcohol intake: current Alcohol intake frequency: holidays/special occasions only Patient Tobacco Use Status: Former Tobacco user Quit Date: Tobacco use type: Cigarette Years Smoked: 1969 e-Cigarette/Vaping Use: Never Used Second Hand Smoke Exposure: No service: Yes Current occupational status: employed and retired Current occupational exposures/hazards: No Cognitive needs: No Hearing needs: No Vision needs: Yes Questionnaire PHQ-9 Over the last 2 weeks, how often have you been bothered by any of the following problems? 1. Little interest or pleasure in doing things: not at all 2. Feeling down, depressed, or hopeless: not at all 3. Trouble falling or staying asleep, or sleeping too much: not at all 4. Feeling tired or having little energy: not at all 5. Poor appetite or overeating: not at all 6. Feeling bad about yourself - or that you are a failure or have let yourself or your family down: not at all 7. Trouble concentrating on things, such as reading the newspaper or watching television: not at all 8. Moving or speaking so slowly that other people could have noticed. Or the opposite - being so fidgety or restless that you have been moving around a lot more than usual: not at all 9. Thoughts that you would be better off or of hurting yourself in some way: not at all Total score: 0 Depression Screening Interpretation: Negative Source: Developed by Drs. Estiven Cabral, Nat Ibarra, Parrish Nickerson and colleagues, with an educational haley from [employer]. Thrive Questionnaire Date Thrive assessed: 07/18/22 AUDIT C Alcohol Use Questionnaire (AUDIT-C) 1. How often do you have a drink containing alcohol?: Monthly or less 2. How many drinks containing alcohol do you have on a typical day when you are drinking?: 1 or 2 3. How often do you have six or more drinks on one occasion?: Never Total Score: 1 Score Reviewed/Action Taken: Yes IKER-7 AMB Questionnaire IKER-7 Date IKER - 7 assessed: 07/18/22 Source: Developed by Drs. Estiven Cabral, Nat Ibarra, Parrish Nickerson and colleagues, with an educational haley from [employer]. Review of Systems Const Denies poor appetite and Denies weakness Eyes Denies no additional complaints ENT Reports Normal hearing present, Denies dizziness, Denies nasal congestion, Denies tinnitus and Denies sore throat Card Denies chest pain, Denies syncope, Denies rapid heart rate and Denies dyspnea Resp Denies cough and Denies dyspnea GI Denies change in stool character, Reports constipation, Denies diarrhea, Denies nausea and Denies vomiting Denies dysuria and Denies urinary frequency Neuro Reports Normal hearing present, Denies confusion, Denies dizziness, Denies syncope and Denies weakness Psych Denies confusion Physical exam (Primary Care) Vital Signs: Last Vital Signs Pulse 78 03/23/23 11:41 BP 148/82 H 03/23/23 11:41 Pulse Ox 98 03/23/23 11:41 Oxygen Delivery Method Room Air 03/23/23 11:41 BMI result Body Mass Index 28.6 Tobacco/Smoking Status: Tobacco use Status Tobacco use date assessed 07/18/22 03/23/23 11:42 Patient Tobacco Use Status Former Tobacco user 03/23/23 11:42 Tobacco use type Cigarette 03/23/23 11:42 e-Cigarette/Vaping Use Never Used 03/23/23 11:42 PHQ-9: PHQ-9 Score PHQ-9: Total score 0 03/23/23 11:56 Depression Screening Interpretation: Negative Thrive Assessment: Date of Thrive Assessment Date Thrive assessed 07/18/22 03/23/23 11:42 Const General: alert and awake; No confusion Orientation/consciousness: No confusion HENMT Head: Yes normocephalic Ears: external ears normal and TM's normal bilaterally Face and sinus: Yes normal facial exam Mouth: moist mucous membranes Throat: Yes tonsils normal Eyes Conjunctivae: conjunctivae normal Pupils: Equal, round and reactive pupils present and Pupil accommodation reflex normal Direct Ophthalmoscopy: normal light reflex Neck Neck: No lymphadenopathy Thyroid: Thyroid normal Chest Chest palpation & inspection: normal inspection of the chest Resp Effort & Inspection: normal respiratory effort and no audible wheezes Auscultation: clear to auscultation bilaterally, no crackles, no wheezes and lung sounds not diminished Cardio Rate: regular rate Rhythm: regular rhythm Peripheral pulses: radial pulses present and dorsalis pedis present GI Palpation (GI): no masses Auscultation: normal bowel sounds and normoactive bowel sounds Rectal Exam - Male: Yes deferred Skin General skin exam: no rashes or lesions noted Rashes: no rashes Neuro General: deep tendon reflexes 2+ bilaterally and No confusion Cranial nerves: Yes Equal, round and reactive pupils present, Yes Midline tongue present, Yes Normal hearing present and Yes Ability to bilaterally elevate shoulders present Cognition (Neuro): normal cognition Gait exam (Neuro): Normal gait present Motor exam (neuro): 5/5 motor strength present throughout Deep tendon reflexes (DTR's): Right brachioradialis reflex intensity grade: 2+, Left brachioradialis reflex intensity grade: 2+, Right patellar reflex intensity grade: 2+ and Left patellar reflex intensity grade: 2+ Extrem General: No edema Assessment and Plan Assessment & Plan (1) Hypertension: Code(s): I10 - Essential (primary) hypertension Qualifiers: Hypertension type: essential hypertension Qualified Code(s): I10 - Essential (primary) hypertension Plan: Continue with blood pressure medication. Decrease salt intake and exercise continue with losartan 25 mg once a day metoprolol 150 mg once a day (2) Hypercholesterolemia: Code(s): E78.00 - Pure hypercholesterolemia, unspecified Plan: Avoid fried foods, chicken skin, eggs, butter margarine, pastries and meat. Be it pork or beef they have a lot of cholesterol June 2022 blood work on rosuvastatin 40 mg once a day (3) Impaired glucose tolerance: Code(s): R73.02 - Impaired glucose tolerance (oral) Plan: Decrease the amount of carbohydrate intake, pasta, bread, rice and potatoes are all sugar and that is aside from all the sweet stuff, remember that fruits are good but they are Sweet also. (4) Asthma: Comment: Cough may be an asthma variant, and we would need to do a complete pulmonary function test to check for that. Code(s): J45.909 - Unspecified asthma, uncomplicated Qualifiers: Asthma severity: mild Asthma persistence: intermittent Asthma complication type: uncomplicated Qualified Code(s): J45.20 - Mild intermittent asthma, uncomplicated (5) Nonsustained ventricular tachycardia: Code(s): I47.2 - Ventricular tachycardia Plan: Patient is being followed up by Cardiology, with the recurrence of the chest discomfort and palpitations - (6) Right leg DVT: Comment: October 2021 Code(s): I82.401 - Acute embolism and thrombosis of unspecified deep veins of right lower extremity Plan: Continue with anticoagulation follows up with hematology oncology (7) ULISSES (obstructive sleep apnea): Comment: He does have moderately severe obstructive sleep apnea. 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 Patient has not been able to use CPAP. I discussed with him the conservative measures are treatment including, weight reduction, always sleep in lateral position. Code(s): G47.33 - Obstructive sleep apnea (adult) (pediatric) Plan: Discussed importance of CPAP (8) Annual physical exam: Code(s): Z00.00 - Encounter for general adult medical examination without abnormal findings (9) Tinnitus: Code(s): H93.19 - Tinnitus, unspecified ear (10) Skin lesion of left arm: Code(s): L98.9 - Disorder of the skin and subcutaneous tissue, unspecified (11) Right inguinal hernia: Code(s): K40.90 - Unilateral inguinal hernia, without obstruction or gangrene, not specified as recurrent (12) Oral candidiasis: Code(s): B37.0 - Candidal stomatitis Orders: Orders Comprehensive Met. Panel Today I47.2 - Ventricular tachycardia Lipid Panel Today E78.00 - Pure hypercholesterolemia, unspecified, I47.2 - Ventricular tachycardia Vitamin B12 and Folate Today I47.2 - Ventricular tachycardia Free T4 (Free Thyroxine) Today I47.2 - Ventricular tachycardia Magnesium Today I47.2 - Ventricular tachycardia Phosphorus Today I47.2 - Ventricular tachycardia Complete Blood Count Auto Diff Today I47.2 - Ventricular tachycardia Thyroid Stimulating Hormone Today I47.2 - Ventricular tachycardia Referrals Vascular Surgery Referral I82.401 - Acute embolism and thrombosis of unspecified deep veins of right lower extremity Speech and Hearing Referral H93.19 - Tinnitus, unspecified ear Cardiology Referral I47.2 - Ventricular tachycardia Dermatology Referral L98.9 - Disorder of the skin and subcutaneous tissue, unspecified Medications: New nystatin swish and swallow 5 mL PO TID 7 days 105 mL 0RF B37.0 - Candidal stomatitis Changed From losartan 25 mg PO DAILY 90 tabs 2RF I10 - Essential (primary) hypertension To losartan 50 mg PO DAILY 30 tabs 5RF I10 - Essential (primary) hypertension Discontinued albuterol sulfate 90 mcg/actuation Discontinued Reason: Ancillary Entered New Order 2 puffs inhalation Q4-6H PRN 8.5 grams 0RF shortness of breath or wheezing tizanidine Discontinued Reason: Change Referral Type 4 mg PO Q8H PRN Muscle Spasm Coding Level of Care Code Est Pt Prev Care >65y(43513) Diagnoses Essential hypertension I10 Hypertension type: essential hypertension Hypercholesterolemia E78.00 Impaired glucose tolerance R73.02 Mild intermittent asthma without complication J45.20 Asthma severity: mild Asthma persistence: intermittent Asthma complication type: uncomplicated Nonsustained ventricular tachycardia I47.2 Right leg DVT I82.401 ULISSES (obstructive sleep apnea) G47.33 Annual physical exam Z00.00 Tinnitus H93.19 Skin lesion of left arm L98.9 Right inguinal hernia K40.90 Oral candidiasis B37.0 Additional Codes PHQ-9 - 68716 - PHQ-9 Billing: ([id number])
== END 2023-03-23 13:05 | disposition home or self-care (01) ==
PROVIDERS: Visit Provider Internal Medicine
DX: Z00.00 Encounter for general adult medical examination without abnormal findings (principal); I47.20 Ventricular tachycardia, unspecified; I82.401 Acute embolism and thrombosis of unspecified deep veins of right lower extremity; I10 Essential (primary) hypertension; E78.00 Pure hypercholesterolemia, unspecified; R73.02 Impaired glucose tolerance (oral); J45.20 Mild intermittent asthma, uncomplicated; G47.33 Obstructive sleep apnea (adult) (pediatric); L98.9 Disorder of the skin and subcutaneous tissue, unspecified; K40.90 Unilateral inguinal hernia, without obstruction or gangrene, not specified as recurrent; B37.0 Candidal stomatitis
CPT/HCPCS: 99397

== ENCOUNTER 2023-04-05 14:52 | Outpatient (AMB) | payer MEDICARE, SELFPAY ==
[2023-04-05 15:07] VITALS: BP 140/82; PULSE 87; BMI 27.8
--- NOTE | 2023-04-05 15:07 | A.OFFVIS_ITS ---
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: No Allergies lisinopril Allergy (Unknown, Verified 04/05/23 15:11) Unknown Medication List - Last Reconciled 04/05/23 by ANDRÉS Wilson apixaban (Eliquis) 5 mg PO BID 90 days cholecalciferol (vitamin D3) 25 mcg PO DAILY hydrocodone-acetaminophen 5-325 mg 1 tab PO Q4-6H PRN losartan 50 mg PO DAILY metoprolol succinate ER 50 mg PO QPM metoprolol succinate ER 100 mg PO QAM rosuvastatin (Crestor) 40 mg PO DAILY sildenafil (Viagra) 100 mg PO DAILY PRN HPI follow-up per pcp dx chest pain HPI Details Ronnie is a 73-year-old male with past medical history of hypertension, hyperlipidemia, impaired fasting glucose, obstructive sleep apnea, unable to tolerate CPAP, PVCs and an SVT run who presents for follow-up. Today he reports that he told his PCP about chest discomfort and he was referred back to us. He describes that he has had fractured ribs on the left anterior chest in the past. At times he has tenderness in that region. He does get intermittent throbbing sensation above this area at times when he is at rest. He describes himself as being active and does not get any concerning symptoms with physical activity. He also describes having bilateral shoulder rotator cuff tears which have been longstanding. He does have some discomfort into his left arm that occurs randomly. It is not associated with the throbbing discomfort in his chest. No shortness of breath, PND, orthopnea or edema. No presyncope, syncope, falls. He does feel his heart go fast in his chest at times, he describes it as a motor that then slows down. He has had some brief dizziness with this. Overall his symptoms of palpitations have not changed in the last 6 months. Taking all his meds as directed [facility] Medical History ULISSES (obstructive sleep apnea) Allergic rhinitis Right leg DVT PVCs (premature ventricular contractions) Nonsustained ventricular tachycardia Cough Obstructive sleep apnea Traumatic tear of supraspinatus tendon of right shoulder Hemorrhoids Impaired glucose tolerance Supraventricular tachycardia Asthma Hypercholesterolemia Lumbar herniated disc Hypertension Surgical History History of cataract surgery History of tonsillectomy History of arthroscopy of left knee Total knee replacement status Family History Father Renal cell cancer Mother Gastric cancer Diabetes Hypertension Breast cancer Social History Household Members: Spouse Housing: House Are you a primary customer care consultant to a significant other at home: No Do you presently have visiting nurse or other home services: No Alcohol intake: former Patient Tobacco Use Status: Former Tobacco user Quit Date: Tobacco use type: Cigarette Years Smoked: 1969 e-Cigarette/Vaping Use: Never Used Second Hand Smoke Exposure: No service: Yes Current occupational status: employed and retired Current occupational exposures/hazards: No Cognitive needs: No Hearing needs: No Vision needs: Yes Review of Systems Const All systems reviewed & are unremarkable except as noted in HPI and below ENT Denies dizziness Card Details: Discomfort in chest occurring at rest. Feels his heart slowing down at times Denies chest pain, Denies chest pain at rest, Denies chest pain with activity, Denies rapid heart rate, Denies pedal edema, Denies edema, Denies leg edema, Denies lightheadedness, Denies palpitations, Denies dyspnea, Denies dyspnea on exertion and Denies orthopnea Resp Denies cough, Denies dyspnea and Denies dyspnea on exertion GI Denies hematochezia and Denies change in stool character Musc Denies abnormal gait, Denies limited range of motion, Denies muscle cramps, Denies muscle weakness, Denies numbness, Denies radiating pain into limb, Denies stiffness and Denies tingling Neuro Denies abnormal gait, Denies dizziness, Denies numbness and Denies tingling Endo Denies palpitations Physical Exam Vital Signs: Last Vital Signs Pulse 87 04/05/23 15:07 BP 140/82 H 04/05/23 15:07 BMI result Body Mass Index 27.8 Const General: cooperative, healthy appearing, comfortable and no acute distress Orientation/consciousness: patient oriented x3 Resp Effort & Inspection: normal respiratory effort Auscultation: clear to auscultation bilaterally, no crackles, no rales, no rhonchi and no wheezes Cardio Jugular venous distension: no JVD Rate: regular rate Rhythm: regular rhythm Heart sounds: S1 normal heart sound present, S2 normal heart sound present, no murmurs and no rubs Neuro General: patient oriented x3 Extrem Other: Minimal swelling above sock on right lower leg General: Yes normal to inspection Psych Appearance: grossly normal Mental Status: mental status grossly normal Speech and movement: Normal speech and movement present Office Procedures EKG Details: Today, read by me, normal sinus rhythm, rate 87, no acute ST or T-wave abnormalities [id number], Complete Assessment & Plan Assessment & Plan (1) PVCs (premature ventricular contractions): Code(s): I49.3 - Ventricular premature depolarization Plan: Prior notes indicate History of PVCs and episode of NSVT previously documented. He is on metoprolol to help suppress arrhythmia. He does feel occasional heart palpitations that feel like a motor that then slows down. Lightheadedness on occasion. No presyncope, syncope, falls. Frequency of palpitations has not changed in the last 6 months. He may notice it once a week or once a month, it varies. EKG done today showing normal sinus rhythm with no acute ST or T-wave abnormalities, normal MS, QRS and QTC intervals, rate 87. Last echo done 01/10/2021 showing EF 65-70%, impaired relaxation, thickened aortic valve with out significant aortic stenosis. Will plan to update Holter and echo prior to his next visit. Cardiology follow-up in about 6 months, sooner if needed. ED care if needed for any sustained palpitations, presyncope, syncope. (2) Nonsustained ventricular tachycardia: Code(s): I47.2 - Ventricular tachycardia Plan: As above (3) Hypertension: Code(s): I10 - Essential (primary) hypertension Qualifiers: Hypertension type: essential hypertension Qualified Code(s): I10 - Essential (primary) hypertension Plan: Adequately controlled at present. Continue metoprolol and losartan. (4) Chest discomfort: Code(s): R07.89 - Other chest pain Plan: Report of atypical sounding chest discomfort, nonexertional. His description seems more like chest wall in nature. Also describes orthopedic issues with bilateral rotator cuff tears. He denies any exertional symptoms. EKG done today showing sinus rhythm with no acute ST or T-wave abnormalities, rate 87. Spent time reviewing signs and symptoms of angina. Instructed to call if he starts getting any exertional symptoms. ED care if warranted. Orders: Orders ECG 3 day holter monitor 6 Months I47.2 - Ventricular tachycardia, I49.3 - Ventricular premature depolarization Coding Level of Care Code Est Pt Level 4 (85247) Diagnoses PVCs (premature ventricular contractions) I49.3 Nonsustained ventricular tachycardia I47.2 Essential hypertension I10 Hypertension type: essential hypertension Chest discomfort R07.89 CPT Codes EKG - CPT: [id number], Complete ([id number]) Time Spent (min) 28
== END 2023-04-05 15:46 | disposition home or self-care (01) ==
PROVIDERS: PCP Internal Medicine; Visit Provider Nurse Practitioner Family
DX: I49.3 Ventricular premature depolarization (principal); I47.20 Ventricular tachycardia, unspecified; I10 Essential (primary) hypertension; R07.89 Other chest pain
CPT/HCPCS: 93010; 99214

== ENCOUNTER → 2023-04-05 14:52 | Outpatient (BNVA) | payer MEDICARE, SELFPAY | PROVIDERS: PCP Internal Medicine; Visit Provider Nurse Practitioner Family | DX: I49.3 Ventricular premature depolarization (principal); I47.20 Ventricular tachycardia, unspecified; I10 Essential (primary) hypertension; R07.89 Other chest pain | CPT/HCPCS: 93005; 99212 ==

== ENCOUNTER 2023-05-10 09:29 | Outpatient (AMB) | payer MEDICARE, SELFPAY ==
--- NOTE | 2023-05-10 09:31 | MHC.OFFVIS ---
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 Pt also says that he gets lots of swelling on both legs but that he does not have much pain. 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 He was discovered to have a DVT. He had seen Hematology-Oncology in upon workup was discovered to be heterozygous for factor 5 Leiden mutation and positive for anticardiolipin antibody. The hypercoagulability may have been the cause of his DVT. He is being maintained on Eliquis He does have some mild swelling. In the antrum he actually fell off a truck. He was sent over to [facility] for workup. He was discovered to have some broken ribs but on CT scan was also found to have a 1.9 cm splenic artery aneurysm. He now presents for vascular evaluation. Of note he does have these rib fractures which is causing him severe pain and muscle spasms. He has reached out to his primary care for narcotic pain meds [facility] Medical History ULISSES (obstructive sleep apnea) Allergic rhinitis Right leg DVT PVCs (premature ventricular contractions) Nonsustained ventricular tachycardia Cough Obstructive sleep apnea Traumatic tear of supraspinatus tendon of right shoulder Hemorrhoids Impaired glucose tolerance Supraventricular tachycardia Asthma Hypercholesterolemia Lumbar herniated disc Hypertension Surgical History History of cataract surgery History of tonsillectomy History of arthroscopy of left knee Total knee replacement status Family History Father Renal cell cancer Mother Gastric cancer Diabetes Hypertension Breast cancer Social History Household Members: Spouse Housing: House Are you a primary direct care supervisor to a significant other at home: No Do you presently have visiting nurse or other home services: No Alcohol intake: former Patient Tobacco Use Status: Former Tobacco user Quit Date: Tobacco use type: Cigarette Years Smoked: 1969 e-Cigarette/Vaping Use: Never Used Second Hand Smoke Exposure: No service: Yes Current occupational status: employed and retired Current occupational exposures/hazards: No Cognitive needs: No Hearing needs: No Vision needs: Yes Review of Systems Const All systems reviewed & are unremarkable except as noted in HPI and below Reports no additional complaints ENT Reports Normal hearing present Card Denies chest pain, Denies chest pain at rest, Denies chest pain with activity and Denies pedal edema Resp Denies cough GI Denies abdominal pain Musc Denies abnormal gait, Denies muscle cramps and Denies radiating pain into limb Skin/Breast Denies skin ulcer and Denies wounds Neuro Reports Normal hearing present and Denies abnormal gait Psych Reports no additional complaints Physical Exam Vital Signs: BMI result Body Mass Index 21.6 Const General: cooperative, healthy appearing and comfortable Orientation/consciousness: oriented to person, oriented to place and oriented to time HEENT Head: Yes normal to inspection Neck Neck: Yes normal visual inspection Carotids: no bruits Chest Chest palpation & inspection: normal inspection of the chest Resp Other: Limited 2 to rib fracture Effort & Inspection: normal respiratory effort and able to speak in complete sentences Auscultation: clear to auscultation bilaterally, no crackles, no rales, no rhonchi and no wheezes Cardio Rate: regular rate Rhythm: regular rhythm Heart sounds: S1 normal heart sound present and S2 normal heart sound present Bruits: no carotid bruits Peripheral pulses: Peripheral pulses 2+ throughout GI Inspection: Yes normal to inspection Skin Wounds: no wounds Hair: normal Neuro General: oriented to person, oriented to place and oriented to time Cranial nerves: Yes CN's II-XII intact bilaterally and Yes Normal hearing present Cognition (Neuro): normal cognition Motor exam (neuro): 5/5 motor strength present throughout Extrem Other: venous exam: No significant superficial varicosities or spider telangiectasias, minimal edema General: No clubbing, No cyanosis and No edema Psych Appearance: grossly normal Mental Status: mental status grossly normal Speech and movement: Normal speech and movement present Assessment & Plan Assessment & Plan (1) Splenic artery aneurysm: Comment: Reported from [facility] at 1.9 cm Code(s): I72.8 - Aneurysm of other specified arteries Plan: We did discuss the pathophysiology of splenic artery aneurysms with the patient. I did discuss that this is smaller in size. It may have been present for several years. We will get a follow-up surveillance CT scan in approximately 6 months time to ensure that this is stable and not increasing in size. (2) DVT (deep venous thrombosis): Code(s): I82.409 - Acute embolism and thrombosis of unspecified deep veins of unspecified lower extremity Qualifiers: DVT location: lower extremity Affected thrombotic vein of extremity: femoral Laterality: right Chronicity: chronic Qualified Code(s): I82.511 - Chronic embolism and thrombosis of right femoral vein Plan: The patient will have venous insufficiency due to the fact that he does have an underlying DVT. He is relatively asymptomatic and would not be eager to intervene due to his hypercoagulable state. We did discuss routine conservative measures including compression elevation and exercise. I will hold off on venous insufficiency testing unless he is symptomatic. We will continue to follow him for his splenic artery aneurysm and he will see us again in 6 months so I can also reassess his legs at that time. Thank you for allowing us to assist in his care. If there are any questions or concerns please do not hesitate to contact us Orders: Orders CT angio abdomen 6 Months I72.8 - Aneurysm of other specified arteries Blood Urea Nitrogen 6 Months I72.8 - Aneurysm of other specified arteries Creatinine 6 Months I72.8 - Aneurysm of other specified arteries Coding Level of Care Code New Pt Level 4 (41699) Diagnoses Splenic artery aneurysm I72.8 Chronic deep vein thrombosis (DVT) of femoral vein of right lower extremity I82.511 DVT location: lower extremity Affected thrombotic vein of extremity: femoral Laterality: right Chronicity: chronic
[2023-05-10 09:34] VITALS: BMI 21.6
== END 2023-05-10 09:52 | disposition home or self-care (01) ==
PROVIDERS: PCP Internal Medicine; Visit Provider Surgery Vascular Surgery
DX: I72.8 Aneurysm of other specified arteries (principal); I82.511 Chronic embolism and thrombosis of right femoral vein
CPT/HCPCS: 99204

== ENCOUNTER → 2023-05-10 09:29 | Outpatient (BNVA) | payer MEDICARE, SELFPAY | PROVIDERS: PCP Internal Medicine; Visit Provider Surgery Vascular Surgery | DX: I82.511 Chronic embolism and thrombosis of right femoral vein (principal); I72.8 Aneurysm of other specified arteries | CPT/HCPCS: 99202 ==

== ENCOUNTER 2023-05-10 10:13 | Outpatient (AMB) | payer MEDICARE, SELFPAY ==
--- NOTE | 2023-05-10 10:15 | MHC.PC.OV ---
Intake Visit Reasons: Muscle Spasms Allergies lisinopril Allergy (Unknown, Verified 05/10/23 10:16) Unknown Medication List - Last Reconciled 05/10/23 by Veronica Malone MD apixaban (Eliquis) 5 mg PO BID 90 days cholecalciferol (vitamin D3) 25 mcg PO DAILY cyclobenzaprine 10 mg PO TID PRN hydrocodone-acetaminophen 5-325 mg 1 tab PO Q4-6H PRN losartan 50 mg PO DAILY metoprolol succinate ER 50 mg PO QPM metoprolol succinate ER 100 mg PO QAM rosuvastatin (Crestor) 40 mg PO DAILY sildenafil (Viagra) 100 mg PO DAILY PRN Tobacco use date assessed: 07/18/22 Fall risk assessment: No Falls in past year Last assessed Fall Risk: 05/10/23 Dental Screening Dental Screen Date: 05/10/23 Did you have a dental visit in the last 12 months?: Yes Did you have a dental problem in the last 6 months where you did not have access to dental care?: No Was dental information given to patient?: Patient has dentist HPI Muscle Spasms HPI Details 73-year-old male with a history of hypertension hypercholesterolemia impaired glucose tolerance history of nonsustained V-tach right leg DVT obstructive sleep apnea coming in for an acute problem. Patient was last seen in 03/23/2023. Review of the notes was seen by the vascular surgeon in May 10 for the splenic aneurysm. Patient had a fall and had a CT scan done showing 1.9 cm splenic artery aneurysm disc just needs to be followed up. Patient also follows up with Cardiology for PVCs on metoprolol advised Holter , 10th L rib- rx muscle spasm . Patient had a fall did not pass out but was moving certain things and was on a plank and fell. Patient had an x-ray done in another hospital showing rib fracture on the left side 10th rib patient is having a lot of muscle spasms and was asking for some medication does not complain of pain. Does have the hydrocodone to take as needed. [facility] Medical History ULISSES (obstructive sleep apnea) Allergic rhinitis Right leg DVT PVCs (premature ventricular contractions) Nonsustained ventricular tachycardia Cough Obstructive sleep apnea Traumatic tear of supraspinatus tendon of right shoulder Hemorrhoids Impaired glucose tolerance Supraventricular tachycardia Asthma Hypercholesterolemia Lumbar herniated disc Hypertension Surgical History History of cataract surgery History of tonsillectomy History of arthroscopy of left knee Total knee replacement status Family History Father Renal cell cancer Mother Gastric cancer Diabetes Hypertension Breast cancer Social History Household Members: Spouse Housing: House Are you a primary lawn care professional to a significant other at home: No Do you presently have visiting nurse or other home services: No Alcohol intake: former Patient Tobacco Use Status: Former Tobacco user Quit Date: Tobacco use type: Cigarette Years Smoked: 1969 e-Cigarette/Vaping Use: Never Used Second Hand Smoke Exposure: No service: Yes Current occupational status: employed and retired Current occupational exposures/hazards: No Cognitive needs: No Hearing needs: No Vision needs: Yes Questionnaire PHQ-9 Over the last 2 weeks, how often have you been bothered by any of the following problems? 1. Little interest or pleasure in doing things: not at all 2. Feeling down, depressed, or hopeless: not at all 3. Trouble falling or staying asleep, or sleeping too much: not at all 4. Feeling tired or having little energy: not at all 5. Poor appetite or overeating: not at all 6. Feeling bad about yourself - or that you are a failure or have let yourself or your family down: not at all 7. Trouble concentrating on things, such as reading the newspaper or watching television: not at all 8. Moving or speaking so slowly that other people could have noticed. Or the opposite - being so fidgety or restless that you have been moving around a lot more than usual: not at all 9. Thoughts that you would be better off or of hurting yourself in some way: not at all Total score: 0 Depression Screening Interpretation: Negative Depression Screening Done: Yes Source: Developed by Drs. Estiven Cabral, Nat Ibarra, Parrish Nickerson and colleagues, with an educational haley from [employer]. Thrive Questionnaire Date Thrive assessed: 07/18/22 AUDIT C Alcohol Use Questionnaire (AUDIT-C) 1. How often do you have a drink containing alcohol?: Monthly or less 2. How many drinks containing alcohol do you have on a typical day when you are drinking?: 1 or 2 3. How often do you have six or more drinks on one occasion?: Never Total Score: 1 Score Reviewed/Action Taken: Yes IKER-7 AMB Questionnaire IKER-7 Date IKER - 7 assessed: 07/18/22 Source: Developed by Drs. Estiven Cabral, Nat Ibarra, Parrish Nickerson and colleagues, with an educational haley from [employer]. Physical exam (Primary Care) Tobacco/Smoking Status: Tobacco use Status Tobacco use date assessed 07/18/22 05/10/23 10:17 Patient Tobacco Use Status Former Tobacco user 05/10/23 10:17 Tobacco use type Cigarette 05/10/23 10:17 e-Cigarette/Vaping Use Never Used 05/10/23 10:17 PHQ-9: PHQ-9 Score PHQ-9: Total score 0 05/10/23 12:40 Depression Screening Interpretation: Negative Thrive Assessment: Date of Thrive Assessment Date Thrive assessed 07/18/22 05/10/23 10:17 Telehealth Telehealth Location of provider rendering services: practice address Location of patient: address on file Patient Identification confirmed using: Name, : Yes Telehealth method: voice only Patient verbally consented to treatment: Yes Patient verbally consented to billing insurance company: Yes Patient informed of any privacy concerns related to visit: Yes Minutes spent on Phone/Video with Pt.: 25 Assessment and Plan Assessment & Plan (1) Splenic artery aneurysm: Comment: Reported from [facility] at 1.9 cm Code(s): I72.8 - Aneurysm of other specified arteries Plan: Patient has been seen by the vascular surgeon and will do surveillance (2) Right leg DVT: Comment: October 2021 Code(s): I82.401 - Acute embolism and thrombosis of unspecified deep veins of right lower extremity Plan: Eliquis prescription sent in for refill (3) Nonsustained ventricular tachycardia: Code(s): I47.2 - Ventricular tachycardia (4) Rib fracture: Comment: 10th rib fall left side Code(s): S22.39XA - Fracture of one rib, unspecified side, initial encounter for closed fracture Plan: Muscle relaxants sent discussed about the side effects. Patient was advised to keep up with incentive spirometer Medications: New cyclobenzaprine 10 mg PO TID PRN 30 tabs 0RF muscle spasm S22.39XA - Fracture of one rib, unspecified side, initial encounter for closed fracture Coding Level of Care Code Tele Est Pt Level 4 (42919) Diagnoses Splenic artery aneurysm I72.8 Right leg DVT I82.401 Nonsustained ventricular tachycardia I47.2 Rib fracture S22.39XA Additional Codes PHQ-9 - 75840 - PHQ-9 Billing: ([id number])
== END 2023-05-10 12:29 | disposition home or self-care (01) ==
LOC: HO.HMGH 10:13
PROVIDERS: PCP Internal Medicine; Visit Provider Internal Medicine
DX: I72.8 Aneurysm of other specified arteries (principal); I82.401 Acute embolism and thrombosis of unspecified deep veins of right lower extremity; I47.20 Ventricular tachycardia, unspecified; S22.39XA Fracture of one rib, unspecified side, initial encounter for closed fracture
CPT/HCPCS: 99443

== ENCOUNTER 2023-05-14 11:28 | Outpatient (REF) | payer MEDICARE, SELFPAY ==
[2023-05-14 11:59] LABS: MANUAL DIFF FLAG NO
[2023-05-14 12:29] LABS: Basophils Absolute Auto 0.1 X10*3/uL (0.0-0.2); Basophils Percent Auto 1.6 % (0-2); Eosinophils Absolute Auto 0.3 X10*3/uL (0.0-0.4); Eosinophils Percent Auto 3.7 % (0-4); Hematocrit 46.1 % (42.0-52.0); Hemoglobin 14.7 g/dl (14.0-18.0); Imm Gran Abs Auto 0.04 X10*3/uL (0.00-0.03); Imm Gran Pct Auto 0.4 % (0.0-0.4); Lymphocytes Absolute Auto 1.1 X10*3/uL (1.2-4.9); Lymphocytes Percent Auto 12.6 % (20-40); Mean Corpuscular HGB Conc 31.9 g/dl (31.0-36.0); Mean Corpuscular Hemoglobin 25.8 pg (27.0-33.0); Mean Platelet Volume 9.3 fL (9.4-12.4); Monocytes Absolute Auto 0.9 X10*3/uL (0.1-1.2); Monocytes Percent Auto 10.1 % (2-11); Neutrophils Absolute Auto 6.5 x10*3/uL (2.0-8.3); Neutrophils Percent Auto 71.6 % (45-73); Platelet Count 259 X10*3/uL (160-400); Red Blood Count 5.69 X10*6/uL (4.60-5.80); Red Cell Distribution Width 14.4 % (11.0-16.0)
[2023-05-14 13:31] LABS: Alanine Aminotransferase 19 U/L (0-40); Albumin Level 4.1 g/dL (3.5-5.0); Alkaline Phosphatase 84 U/L (39-117); Anion Gap 12 (12-20); Aspartate Amino Transferase 22 U/L (5-37); Bilirubin Total 0.7 mg/dL (0.0-1.0); Blood Urea Nitrogen 16 mg/dL (9-16); Calcium 9.9 mg/dL (8.4-10.2); Carbon Dioxide 30 mmol/L (22-29); Chloride 102 mmol/L (96-108); Cholesterol 153 mg/dL (<200); Estimated Glomerular Filt Rate > 60; Folate 10.5 ng/mL (> or = 4.0); Glucose Random 107 mg/dL (60-115); HDL Cholesterol 41 mg/dL (>40); LDL Cholesterol Calculated 79 mg/dL (<100); Magnesium 2.1 mg/dL (1.6-2.6); Phosphorus 3.7 mg/dL (2.7-4.5); Sodium 139 mmol/L (135-145); Total Protein 8.1 g/dL (6.5-8.0); Triglycerides 168 mg/dL (<150); Vitamin B12 631 pg/mL (200-900)
[2023-05-14 13:45] LABS: Free T4 (Free Thyroxine) 0.94 ng/dL (0.71-1.85); Thyroid Stimulating Hormone 5.14 uIU/mL (0.32-4.0)
== END 2023-05-14 11:29 | disposition home or self-care (01) ==
LOC: HO.LAB 11:28
PROVIDERS: PCP Internal Medicine; Visit Provider Internal Medicine
DX: E78.00 Pure hypercholesterolemia, unspecified (principal); I47.20 Ventricular tachycardia, unspecified
CPT/HCPCS: 36415; 80053; 80061; 82607; 82746; 83735; 84100; 84439; 84443; 85025

== ENCOUNTER 2023-05-15 11:40 | Outpatient (AMB) | payer MEDICARE, SELFPAY ==
--- NOTE | 2023-05-15 11:50 | A.OFFPC_ITS ---
Vital Signs 05/15/23 11:51 05/15/23 11:57 Height 6 ft 2 in Weight 225 lb 6 oz BMI 28.9 BP 160/90 H 130/80 Blood Pressure Location Rt brachial Rt brachial Position Sitting Sitting Pulse 67 Pulse Source Pulse Oximeter Pulse Oximetry (%) 96 Oxygen Delivery Method Room Air Intake Visit Reasons: 2 Months F/U-HTN Intake Note: Patient is here to follow up on HTN. Data Management Required: No Practical Nursing Teacher: Not Required per policy Accompanied by: Self / Same As Patient Allergies lisinopril Allergy (Unknown, Verified 05/15/23 14:46) Unknown Tobacco use date assessed: 05/15/23 Dental Screening Dental Screen Date: 05/15/23 Did you have a dental visit in the last 12 months?: No Did you have a dental problem in the last 6 months where you did not have access to dental care?: No Was dental information given to patient?: Patient has dentist HPI HPI Comments History of Present Illness Details 73-year-old male with a history of hyper tension hypercholesterolemia impaired glucose tolerance history of nonsustained V-tach right leg DVT obstructive sleep apnea coming in for an acute problem. Patient was last seen in 05/10/23 via telehealth appointment status post mechanical fall. X-ray in- hospital showing left-sided 10th rib fracture. Patient taking hydrocodone as needed for pain. Patient is encouraged to use incentive spirometry frequently to prevent pneumonia. Patient has seen vascular surgery in the past for incidental splenic artery aneurysm noted on CT and emergency room. [facility] Medical History ULISSES (obstructive sleep apnea) Allergic rhinitis Right leg DVT PVCs (premature ventricular contractions) Nonsustained ventricular tachycardia Cough Obstructive sleep apnea Traumatic tear of supraspinatus tendon of right shoulder Hemorrhoids Impaired glucose tolerance Supraventricular tachycardia Asthma Hypercholesterolemia Lumbar herniated disc Hypertension Surgical History History of cataract surgery History of tonsillectomy History of arthroscopy of left knee Total knee replacement status Family History Father Renal cell cancer Mother Gastric cancer Diabetes Hypertension Breast cancer Household Members: Spouse Housing: House Are you a primary direct care supervisor to a significant other at home: No Do you presently have visiting nurse or other home services: No Alcohol intake: current Alcohol intake frequency: holidays/special occasions only Patient Tobacco Use Status: Former Tobacco user Quit Date: Tobacco use type: Cigarette Years Smoked: 1969 e-Cigarette/Vaping Use: Never Used Second Hand Smoke Exposure: No service: Yes Current occupational status: employed and retired Current occupational exposures/hazards: No Cognitive needs: No Hearing needs: No Vision needs: Yes (glasses) Questionnaire Thrive Questionnaire Date Thrive assessed: 07/18/22 IKER-7 AMB Questionnaire IKER-7 Date IKER - 7 assessed: 07/18/22 Source: Developed by Drs. Estiven Cabral, Nat Ibarra, Parrish Nickerson and colleagues, with an educational haley from [employer]. Review of Systems Const Denies chills, Denies fatigue, Denies fever(s) and Denies poor appetite Eyes Denies no additional complaints ENT Reports Normal hearing present Card Denies chest pain, Denies syncope, Denies rapid heart rate and Denies dyspnea Resp Denies cough and Denies dyspnea GI Denies change in stool character, Denies constipation, Denies diarrhea, Denies nausea and Denies vomiting Denies dysuria, Denies urinary frequency and Denies urinary urgency Neuro Reports Normal hearing present, Denies confusion and Denies syncope Psych Denies confusion Endo Denies fatigue Physical exam (Primary Care) Vital Signs: Last Vital Signs Pulse 67 05/15/23 11:51 BP 130/80 05/15/23 11:57 Pulse Ox 96 05/15/23 11:51 Oxygen Delivery Method Room Air 05/15/23 11:51 BMI result Body Mass Index 28.9 Tobacco/Smoking Status: Tobacco use Status Tobacco use date assessed 05/15/23 05/15/23 11:58 Patient Tobacco Use Status Former Tobacco user 05/15/23 11:58 Tobacco use type Cigarette 05/15/23 11:58 e-Cigarette/Vaping Use Never Used 05/15/23 11:58 Thrive Assessment: Date of Thrive Assessment Date Thrive assessed 07/18/22 05/15/23 11:58 Const General: No confusion Orientation/consciousness: No confusion HENMT Head: Yes normocephalic and Yes atraumatic Eyes Conjunctivae: conjunctivae normal Chest Chest palpation & inspection: normal inspection of the chest Resp Effort & Inspection: normal respiratory effort Auscultation: clear to auscultation bilaterally, no crackles, no rhonchi and no wheezes Cardio Rate: regular rate Rhythm: regular rhythm Heart sounds: S1 normal heart sound present and S2 normal heart sound present GI Inspection: Yes normal to inspection Neuro General: No confusion Cranial nerves: Yes Normal hearing present Extrem General: No edema Assessment and Plan Assessment & Plan (1) Rib fracture: Comment: 10th rib fall left side Code(s): S22.39XA - Fracture of one rib, unspecified side, initial encounter for closed fracture Plan: Can continue on hydrocodone-acetaminophen as needed for pain. Patient advised to continue to use incentive spirometer to prevent pneumonia. (2) TSH elevation: Code(s): R79.89 - Other specified abnormal findings of blood chemistry Plan: Repeat TSH ordered in 3 months by PCP, patient made aware this. (3) ULISSES (obstructive sleep apnea): Comment: He does have moderately severe obstructive sleep apnea. 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 Patient has not been able to use CPAP. I discussed with him the conservative measures are treatment including, weight reduction, always sleep in lateral position. Code(s): G47.33 - Obstructive sleep apnea (adult) (pediatric) (4) Right leg DVT: Comment: October 2021 Code(s): I82.401 - Acute embolism and thrombosis of unspecified deep veins of right lower extremity Plan: Continue on Eliquis. (5) Hypertension: Code(s): I10 - Essential (primary) hypertension Qualifiers: Hypertension type: essential hypertension Qualified Code(s): I10 - Essential (primary) hypertension Plan: Continue on losartan, metoprolol. Follow low-salt diet exercise. (6) Hypercholesterolemia: Code(s): E78.00 - Pure hypercholesterolemia, unspecified Plan: Continue on rosuvastatin 40 mg daily. Avoid fried foods, chicken skin, eggs, butter,margarine, pastries and?? red meat. Plan Follow-up in 3 months Medications: Refilled hydrocodone-acetaminophen 5-325 mg 1 tab PO Q4-6H PRN 30 tabs 0RF pain M51.26 - Other intervertebral disc displacement, lumbar region Coding Level of Care Code Est Pt Level 4 (47407) Diagnoses Rib fracture S22.39XA TSH elevation R79.89 ULISSES (obstructive sleep apnea) G47.33 Right leg DVT I82.401 Essential hypertension I10 Hypertension type: essential hypertension Hypercholesterolemia E78.00
[2023-05-15 11:51] VITALS: BP 160/90; PULSE 67; O2SAT 96; BMI 28.9
[2023-05-15 11:57] VITALS: BP 130/80
== END 2023-05-15 12:30 | disposition home or self-care (01) ==
PROVIDERS: PCP Internal Medicine; Visit Provider Nurse Practitioner Family
DX: S22.39XA Fracture of one rib, unspecified side, initial encounter for closed fracture (principal); R79.89 Other specified abnormal findings of blood chemistry; G47.33 Obstructive sleep apnea (adult) (pediatric); I82.401 Acute embolism and thrombosis of unspecified deep veins of right lower extremity; I10 Essential (primary) hypertension; E78.00 Pure hypercholesterolemia, unspecified
CPT/HCPCS: 99214

== ENCOUNTER 2023-05-25 10:42 | Emergency (ER) | payer MEDICARE, SELFPAY ==
[2023-05-25 11:11] VITALS: BP 176/98; PULSE 83; RESP 16; TEMP 36.6; O2SAT 93; BMI 28.2
--- NOTE | 2023-05-25 11:12 | ED_ITS ---
HPI - Extremity Injury (Lower) General Stated Complaint: blood clot in R leg/ burning sensation Source: patient Mode of arrival: ambulatory Limitations: no limitations History of Present Illness HPI Narrative: Patient is a 73-year-old male presents emergency department for evaluation of right lower extremity concern. He reports a known DVT in this leg, chronic in nature, he is anticoagulated with Eliquis. Then he noticed sudden onset of burning pain to the right medial ankle this morning; localized to a superficial vein. Denies numbness, tingling, cold sensation to the foot. Reports compliance with his Eliquis. No injury. Related Data Home Medications Medication Instructions Recorded Confirmed cholecalciferol (vitamin D3) 25 25 mcg PO DAILY 04/22/20 05/10/23 mcg (1,000 unit) capsule sildenafil 100 mg tablet (Viagra) 100 mg PO DAILY PRN Sexual Activity 04/22/20 05/10/23 Previous Rx's Medication Instructions Recorded metoprolol succinate 100 mg 100 mg PO QAM #90 tabs 08/17/22 tablet,extended release 24 hr metoprolol succinate 50 mg 50 mg PO QPM #90 tabs 08/17/22 tablet,extended release 24 hr rosuvastatin 40 mg tablet (Crestor) 40 mg PO DAILY #90 tabs 08/17/22 losartan 50 mg tablet 50 mg PO DAILY #30 tabs 03/23/23 apixaban 5 mg tablet (Eliquis) 5 mg PO BID 90 days #180 tabs 05/10/23 hydrocodone 5 mg-acetaminophen 325 1 tab PO Q4-6H PRN pain #30 tabs 05/21/23 mg tablet Allergies Allergy/AdvReac Type Severity Reaction Status Date / Time lisinopril Allergy Unknown Unknown Verified 05/25/23 11:11 Review of Systems Review of Systems: Yes all other systems are reviewed and are negative PMFSH Past Medical History Attestation statement: The following information was validated with the patient. Source: old records reviewed Medical History ULISSES (obstructive sleep apnea) Allergic rhinitis Right leg DVT PVCs (premature ventricular contractions) Nonsustained ventricular tachycardia Cough Obstructive sleep apnea Traumatic tear of supraspinatus tendon of right shoulder Hemorrhoids Impaired glucose tolerance Supraventricular tachycardia Asthma Hypercholesterolemia Lumbar herniated disc Hypertension Surgical History History of cataract surgery History of tonsillectomy History of arthroscopy of left knee Total knee replacement status Family History Family History Father Renal cell cancer Mother Gastric cancer Diabetes Hypertension Breast cancer Social History Social History Household Members: Spouse Housing: House Are you a primary patient care associate to a significant other at home: No Do you presently have visiting nurse or other home services: No Alcohol intake: current Alcohol intake frequency: holidays/special occasions only Patient Tobacco Use Status: Former Tobacco user Quit Date: Tobacco use type: Cigarette Years Smoked: 1969 e-Cigarette/Vaping Use: Never Used Second Hand Smoke Exposure: No service: Yes Current occupational status: employed and retired Current occupational exposures/hazards: No Cognitive needs: No Hearing needs: No Vision needs: Yes (glasses) Physical Exam Vital Signs: Appearance: Alert.?Oriented to person, place and time. No acute dist ress.?Normal affect. Neck: Normal inspection.? Neck supple.?? CVS: Heart sounds normal. Normal heart rate and rhythm.? Pulses normal.?? Respiratory: No respiratory distress.? Lung sounds clear to auscultation bilaterally?? Abdomen: Soft and non-tender. Normoactive bowel sounds. ? Skin: Skin warm and dry.? Normal skin color.? Normal skin turgor.?? Extremities: No lower extremity edema.? No calf ttp. Right ankle without redness, warmth, rashes, lesions. Identified pain that patient reports burning sensation to it is not firm or enlarged. 2+ DP/PT pulse bilaterally. No pallor, no paralysis, no poikilothermia Neuro: Moves all extremities spontaneously. Sensation intact bilaterally. No focal neuro deficits. Ambulates with normal steady gait. Medical Decision Making Medical Decision Making MDM Narrative: Patient is a 73 year male who presents emergency department for evaluation of burning sensation to the right medial ankle localized to a superficial vein. No evidence of superficial thrombophlebitis. Full AROM to the ankle. Not consistent with septic arthritis. Anticoagulated with Eliquis and compliant, known DVT to the lower extremity; most recent ultrasound November 2022 revealing chronic DVT of the superficial femoral vein. Examination not consistent with vascular occlusion. Symptoms nonspecific at this time. Discussed conservative treatment including warm compress, acetaminophen, worrisome signs and symptoms that would warrant re-evaluation. Outpatient follow-up with primary care provider. Differential Diagnosis Differential Diagnoses: The differential diagnosis associated with the presentation includes (As noted above) Independent Historian Clinical information obtained from an independent historian. History obtained from or confirmed by: Spouse (Present at bedside who confirms history) External Record Review External record reviewed: Outpatient record and Prior outpatient radiology Tests considered The following testing was considered but not selected: See narrative above Prescription Management I considered prescription management with: Pain Medication (Acetaminophen) Chronic Conditions Patient?s care impacted by: Other (Chronic DVT) Discharge Plan Discharge Clinical Impression: Ankle pain, right Patient Disposition: Home, Self-Care Instructions: Superficial Thrombophlebitis (ED) Additional Instructions: Apply warm compresses to the area for 10-15 minutes 3-4 times daily. You can take Tylenol 500 mg, 2 tablets (1,000mg) every 4-6 hours as needed for pain, but not to exceed 3 doses daily (3,000mg).? Continue taking all of your medications as prescribed. Follow-up with your primary care provider in 3 days for persistent symptoms. Return back to emergency department any new or worsening symptoms or concerns. Prescriptions: No Action metoprolol succinate 50 mg tablet extended release 24 hr 50 mg PO QPM Qty: 90 3RF metoprolol succinate 100 mg tablet extended release 24 hr 100 mg PO QAM Qty: 90 3RF rosuvastatin [Crestor] 40 mg tablet 40 mg PO DAILY Qty: 90 3RF Eliquis 5 mg tablet 5 mg PO BID 90 Days Qty: 180 0RF hydrocodone-acetaminophen 5-325 mg tablet 1 tab PO Q4-6H PRN (Reason: pain) Qty: 30 0RF cholecalciferol (vitamin D3) 25 mcg (1,000 unit) capsule 25 mcg PO DAILY sildenafil [Viagra] 100 mg tablet 100 mg PO DAILY PRN (Reason: Sexual Activity) Rx Instructions: administer 30 minutes to 4 hours before activity losartan 50 mg tablet 50 mg PO DAILY Qty: 30 5RF Referrals: Po,Veronica Julio MD [Primary Care Provider] - Interventions: ED Discharge Assessment Last Done: 05/25/23 11:46
== END 2023-05-25 11:49 | disposition home or self-care (01) ==
PROVIDERS: Emergency Provider Emergency Medicine Emergency Medical Services; PCP Internal Medicine
DX: M25.571 Pain in right ankle and joints of right foot (principal)
CPT/HCPCS: 99282

== ENCOUNTER 2023-06-13 15:47 | Outpatient (REF) | payer MEDICARE, SELFPAY | END 2023-06-13 15:48 | disposition home or self-care (01) | LOC: HO.SH 15:47 | PROVIDERS: Visit Provider Internal Medicine | DX: Z01.118 Encounter for examination of ears and hearing with other abnormal findings (principal); H93.13 Tinnitus, bilateral; H90.3 Sensorineural hearing loss, bilateral | CPT/HCPCS: 92557 ==

== ENCOUNTER 2023-07-09 12:14 | Outpatient (REF) | payer MEDICARE, SELFPAY ==
--- NOTE | ~2023-07-09 | US_ITS ---
EXAMINATION: US VENOUS ULTRASOUND WITH DOPPLER LOWER EXTREMITY, RIGHT CLINICAL INFORMATION: History of DVT(deep venous thrombosis). COMPARISON: 12/05/2022 TECHNIQUE: Ultrasound of the deep veins is performed from the hip to the calf with compression sonography and color and pulse Doppler assessment. Spectral analysis with color-flow imaging is performed. FINDINGS: There is what appears to be chronic clot seen in the deep venous system in the right leg with partially occlusive thrombus in the popliteal vein as well as the mid and proximal femoral veins. The common femoral vein is free of thrombus. The great saphenous vein is free of thrombus. The visualized tibial veins appear patent and the thrombus seen previously is not appreciated with certainty on the current study. US/US venous duplex LE RT IMPRESSION: Chronic DVT in the right leg as described above.
== END 2023-07-09 12:15 | disposition home or self-care (01) ==
LOC: HO.US 12:14
PROVIDERS: PCP Internal Medicine; Visit Provider Internal Medicine Medical Oncology
DX: I82.401 Acute embolism and thrombosis of unspecified deep veins of right lower extremity (principal)
CPT/HCPCS: 93971

== ENCOUNTER 2023-08-27 12:37 | Outpatient (REF) | payer MEDICARE, SELFPAY ==
[2023-08-27 13:56] LABS: Free T4 (Free Thyroxine) 1.08 ng/dL (0.71-1.85); Thyroid Stimulating Hormone 1.75 uIU/mL (0.32-4.0)
== END 2023-08-27 12:38 | disposition home or self-care (01) ==
LOC: HO.LAB 12:37
PROVIDERS: PCP Internal Medicine; Visit Provider Internal Medicine
DX: R94.6 Abnormal results of thyroid function studies (principal)
CPT/HCPCS: 36415; 84439; 84443

== ENCOUNTER 2023-08-28 12:18 | Outpatient (AMB) | payer MEDICARE, SELFPAY ==
[2023-08-28 12:38] VITALS: BP 134/62; PULSE 65; O2SAT 99; BMI 28.4
--- NOTE | 2023-08-28 12:38 | MHC.PC.OV ---
Vital Signs 08/28/23 12:38 Height 6 ft 2 in Weight 221 lb 0.6 oz BMI 28.4 BP 134/62 Blood Pressure Location Lt brachial Position Sitting Pulse 65 Pulse Source Pulse Oximeter Pulse Oximetry (%) 99 Oxygen Delivery Method Room Air Intake Visit Reasons: 3 month f/u Patient Services Representative Required: No Allergies lisinopril Allergy (Unknown, Verified 08/28/23 12:38) Unknown Tobacco use date assessed: 08/28/23 Fall risk assessment: No Falls in past year Last assessed Fall Risk: 08/28/23 HPI 3 month f/u HPI Details 73-year-old male with a history of hypertension hypercholesterolemia right leg DVT obstructive sleep apnea last seen in April 2023. Patient had an ultrasound done June 2023 of the right leg showing chronic DVT. He has followed up with the Hematology-Oncology presently continuing with the anticoagulation and follows up with the vascular surgeon regarding the splenic artery aneurysm. The nurse practitioner in April 2023 status post mechanical fall left-sided 10th rib fracture. ER visit last week - near syncope er visit but was negative was driving and feels dizzy and then would have shakes- work up negative [facility] Medical History ULISSES (obstructive sleep apnea) Allergic rhinitis Right leg DVT PVCs (premature ventricular contractions) Nonsustained ventricular tachycardia Cough Obstructive sleep apnea Traumatic tear of supraspinatus tendon of right shoulder Hemorrhoids Impaired glucose tolerance Supraventricular tachycardia Asthma Hypercholesterolemia Lumbar herniated disc Hypertension Surgical History History of cataract surgery History of tonsillectomy History of arthroscopy of left knee Total knee replacement status Family History Father Renal cell cancer Mother Gastric cancer Diabetes Hypertension Breast cancer Social History Household Members: Spouse Housing: House Are you a primary day care home mother to a significant other at home: No Do you presently have visiting nurse or other home services: No Alcohol intake: current Alcohol intake frequency: holidays/special occasions only Patient Tobacco Use Status: Former Tobacco user Quit Date: Tobacco use type: Cigarette Years Smoked: 1969 e-Cigarette/Vaping Use: Never Used Second Hand Smoke Exposure: No service: Yes Current occupational status: employed and retired Current occupational exposures/hazards: No Cognitive needs: No Hearing needs: No Vision needs: Yes (glasses) Questionnaire Thrive Questionnaire Date Thrive assessed: 07/18/22 AUDIT C Alcohol Use Questionnaire (AUDIT-C) 1. How often do you have a drink containing alcohol?: Monthly or less 2. How many drinks containing alcohol do you have on a typical day when you are drinking?: 1 or 2 3. How often do you have six or more drinks on one occasion?: Never Total Score: 1 Score Reviewed/Action Taken: Yes IKER-7 AMB Questionnaire IKER-7 Date IKER - 7 assessed: 07/18/22 Source: Developed by Drs. Estiven Cabral, Nat Ibarra, Parrish Nickerson and colleagues, with an educational haley from [employer]. Physical exam (Primary Care) Vital Signs: Last Vital Signs Pulse 65 08/28/23 12:38 BP 134/62 08/28/23 12:38 Pulse Ox 99 08/28/23 12:38 Oxygen Delivery Method Room Air 08/28/23 12:38 BMI result Body Mass Index 28.4 Tobacco/Smoking Status: Tobacco use Status Tobacco use date assessed 08/28/23 08/28/23 12:38 Patient Tobacco Use Status Former Tobacco user 08/28/23 12:38 Tobacco use type Cigarette 08/28/23 12:38 e-Cigarette/Vaping Use Never Used 08/28/23 12:38 Thrive Assessment: Date of Thrive Assessment Date Thrive assessed 07/18/22 08/28/23 12:38 Const General: alert; No acute distress Eyes Conjunctivae: conjunctivae normal Resp Auscultation: clear to auscultation bilaterally Cardio Rate: regular rate Rhythm: regular rhythm GI Inspection: Yes normal to inspection Extrem General: Yes normal to inspection and No edema Assessment and Plan Assessment & Plan (1) Hypertension: Code(s): I10 - Essential (primary) hypertension Qualifiers: Hypertension type: essential hypertension Qualified Code(s): I10 - Essential (primary) hypertension Plan: Continue with blood pressure medication. Decrease salt intake and exercise on metoprolol 100 mg once a day and 50 mg at night losartan 50 mg once a day (2) Hypercholesterolemia: Code(s): E78.00 - Pure hypercholesterolemia, unspecified Plan: Avoid fried foods, chicken skin, eggs, butter margarine, pastries and meat. Be it pork or beef they have a lot of cholesterol on rosuvastatin LDL goal of less than 130 and triglyceride of less than 150 (3) Asthma: Comment: Cough may be an asthma variant, and we would need to do a complete pulmonary function test to check for that. Code(s): J45.909 - Unspecified asthma, uncomplicated Qualifiers: Asthma complication type: uncomplicated Asthma persistence: intermittent Asthma severity: mild Qualified Code(s): J45.20 - Mild intermittent asthma, uncomplicated Plan: Stable (4) Impaired glucose tolerance: Code(s): R73.02 - Impaired glucose tolerance (oral) Plan: Decrease the amount of carbohydrate intake, pasta, bread, rice and potatoes are all sugar and that is aside from all the sweet stuff, remember that fruits are good but they are Sweet also. (5) Right leg DVT: Comment: October 2021, June 2023 Code(s): I82.401 - Acute embolism and thrombosis of unspecified deep veins of right lower extremity Plan: Continuing with anticoagulation (6) Anticardiolipin antibody positive: Comment: February 2022 Code(s): R76.0 - Raised antibody titer Plan: Continuing anticoagulation (7) Splenic artery aneurysm: Comment: Reported from [facility] at 1.9 cm 04/2023 Code(s): I72.8 - Aneurysm of other specified arteries Plan: This was an incidental finding on CT scan after fall. has seen vascular and will ff up in a year (8) Rib fracture: Comment: 10th rib fall left side Code(s): S22.39XA - Fracture of one rib, unspecified side, initial encounter for closed fracture Plan: Patient is encouraged to continue on breathing deep to avoid pneumonia (9) Nonsustained ventricular tachycardia: Code(s): I47.2 - Ventricular tachycardia Plan: PAtient follow up with cardiology 10/2023 but will have echo and 3 day holter soon Medications: Discontinued hydrocodone-acetaminophen 5-325 mg Discontinued Reason: Doctor's Order 1 tab PO QID PRN 30 tabs 0RF pain M51.26 - Other intervertebral disc displacement, lumbar region Coding Level of Care Code Est Pt Level 4 (41289) Diagnoses Essential hypertension I10 Hypertension type: essential hypertension Hypercholesterolemia E78.00 Mild intermittent asthma without complication J45.20 Asthma complication type: uncomplicated Asthma persistence: intermittent Asthma severity: mild Impaired glucose tolerance R73.02 Right leg DVT I82.401 Anticardiolipin antibody positive R76.0 Splenic artery aneurysm I72.8 Rib fracture S22.39XA Nonsustained ventricular tachycardia I47.2
== END 2023-08-28 13:31 | disposition home or self-care (01) ==
PROVIDERS: PCP Internal Medicine; Visit Provider Internal Medicine
DX: I10 Essential (primary) hypertension (principal); I82.401 Acute embolism and thrombosis of unspecified deep veins of right lower extremity; I72.8 Aneurysm of other specified arteries; I47.20 Ventricular tachycardia, unspecified; E78.00 Pure hypercholesterolemia, unspecified; J45.20 Mild intermittent asthma, uncomplicated; R73.02 Impaired glucose tolerance (oral); R76.0 Raised antibody titer; S22.32XA Fracture of one rib, left side, initial encounter for closed fracture
CPT/HCPCS: 99214

== ENCOUNTER → 2023-09-06 08:22 | Outpatient (REF) | payer MEDICARE, SELFPAY ==
--- NOTE | 2023-09-06 08:24 | HM_ITS ---
Conclusion: 1. Patient was monitored for total period of 3 days 2. Baseline was normal sinus rhythm with average heart of 68 beats per minute 3. Frequent PVCs noted with total burden of 1.4% 4. 13 supraventricular tachycardia episode noted with longest lasting 12 beats and the fastest at 167 beats per minute 5. No significant pauses noted 6. No patient reported events MTDD
== END ==
LOC: HO.CARD 08:22
PROVIDERS: PCP Internal Medicine; Visit Provider Internal Medicine Cardiovascular Disease
DX: I49.3 Ventricular premature depolarization (principal); I47.20 Ventricular tachycardia, unspecified
CPT/HCPCS: 93242

== ENCOUNTER → 2023-09-06 08:24 | Outpatient (BNV) | payer MEDICARE, SELFPAY | PROVIDERS: PCP Internal Medicine; Visit Provider Internal Medicine Cardiovascular Disease | DX: I47.19 Other supraventricular tachycardia (principal) | CPT/HCPCS: 93244 ==

== ENCOUNTER → 2023-10-02 08:51 | Outpatient (REF) | payer MEDICARE, SELFPAY ==
--- NOTE | 2023-10-02 08:54 | CA_ITS ---
Transthoracic Echocardiogram Patient (Last, First, Middle): Ronnie Beasley E Gender: Male Date of : 1950 Age: 73 Procedure Date: 10/02/2023 Procedure Type: Transthoracic Echocardiogram Location: OP Height: 187.96 cm Weight: 97.52 kg BSA: 2.24 m2 Heart Rate: 66 bpm BP: 125 / 85 mmHg Improvement Specialist: FAISAL Referring MD: Kavin Mcintosh MD Automotive Worker: Kavin Mcintosh MD Symptoms: I47.2 - Ventricular tachycardia Study Quality: Fair w/Contrast ECG Rhythm: Sinus Conclusions: - 1. Normal LV ejection fraction of 60 65% with impaired relaxation filling pattern 2. Increased gradient across aortic valve suggestive of probably mild aortic stenosis 3. Upper limits of normal ascending aortic size 4. Normal RV systolic pressure 5. No pericardial effusion Findings Procedure Information Contrast agent, definity, is being given per protocol without apparent complications. Left Ventricle Normal left ventricular size, thickness, and systolic function. The visually estimated ejection fraction is between 60-65%. Spectral Doppler is indicative of an impaired relaxation filling pattern. E/E prime ratio is between 8 and 15 consistent with indeterminate filling pressures. Right Ventricle Normal right ventricular cavity size and systolic function. Atria Both atria are normal in size. Interatrial shunt cannot be excluded. Aortic Valve There is mild calcification of the aortic valve. There is moderate thickening of the aortic valve. There is mild aortic valve stenosis. There is no aortic valve regurgitation. Mitral Valve There is mild anterior and posterior mitral leaflet thickening. There is mild mitral annular calcification. There is trace mitral valve regurgitation. There is no mitral valve stenosis. Pulmonic Valve The pulmonic valve is likely normal. There is trace pulmonic valve regurgitation. Tricuspid Valve Normal tricuspid valve structure. There is trace tricuspid valve regurgitation. The right ventricular systolic pressure is normal. The right ventricular systolic pressure is 19 mmHg. Normal right atrial pressure. There is no evidence of pulmonary hypertension. Great Vessels The pulmonary artery was not well visualized. Venous The inferior vena cava is normal in size and collapses greater than 50% with inspiration. Pericardium/Pleural There is no evidence of pericardial effusion. Prior Study Comparison No significant change compared to prior study dated: 01/10/2021. Measurements 2D Linear Measurements IVSd: 1.09 0.6-0.9/0.6-1.0 cm LVIDd: 4.27 3.9-5.3/4.2-5.9 cm LVIDd Index: 1.91 2.4-3.2/2.2-3.1 cm/m2 LVIDs: 2.37 2.0-3.6 cm LVPWd: 0.95 0.7-1.1 cm LA Diam: 2.80 2.7-3.8/3.0-4.0 cm LAIDs Index: 1.25 1.5-2.3 cm/m2 LV Mass: 180.32 67-162/88-224 g LV Mass Index: 80.50 43-95/49-115 g/m2 LVOT Diam: 2.30 3.0+(-)1.3 cm 2D Systolic Function EF 4C: 58.70 >55% EF 2C: 74.10 >55% EF BiP: 66.70 >55% Mitral Valve MV Pk E: 0.69 MV PK A: 0.93 MV Decel Time: 353.00 E/A: 0.70 E'Lateral: 5.87 E'Medial: 5.66 E/E' Med: 12.10 E/E' Lat: 11.70 PHT: 103.00 MVA PHT: 2.14 Decel [place]: 1.94 Aortic Valve AoV Pk Angel: 2.40 AoV Mn Angel: 1.68 AoV VTI: 0.50 AoV Pk Grad: 23.00 Aov Mn Grad: 13.00 BART Cont.VTI: 2.68 LVOT LVOT Pk Angel: 1.54 LVOT Mn Agnel: 1.12 LVOT VTI: 0.32 LVOT Pk Grad: 9.00 LVOT Mn Grad: 6.00 LVOT Diam: 2.30 LVOT Area: 4.15 Diastolic Function MV Pk E: 0.69 MV Pk A: 0.93 E/A: 0.70 E'Medial: 5.66 E/E' Med: 12.10 E' Laterial: 5.87 E/E' Lat: 11.70 Right Ventricle TAPSE (mm): 25.80 TVS' Angel: 11.50 Tricuspid Valve TR Pk Angel: 1.97 TR Pk Grad: 16.00 RA Press: 3.00 RVSP: 19.00 Great Vessels Aorta Sinus of Valsalva: 3.50 2.0-3.5 cm Ao Asc: 3.60 2.1-3.4 cm Pulmonary Valve PV Pk Angel: 0.91 Peak PV Grad: 3.00 Updated in Other Vendor System with Status of Final Kavin Mcintosh MD electronically signed on 10/03/2023 3:17:42 PM with status of Final
== END ==
LOC: HO.CARD 08:51
PROVIDERS: Absent Provider Nurse Practitioner Family; PCP Internal Medicine; Visit Provider Internal Medicine Cardiovascular Disease
DX: I47.20 Ventricular tachycardia, unspecified (principal)
CPT/HCPCS: 93306; Q9957

== ENCOUNTER → 2023-10-02 08:54 | Outpatient (BNV) | payer MEDICARE, SELFPAY | PROVIDERS: Absent Provider Nurse Practitioner Family; PCP Internal Medicine; Visit Provider Internal Medicine Cardiovascular Disease | DX: I35.0 Nonrheumatic aortic (valve) stenosis (principal) | CPT/HCPCS: 93306 ==

== ENCOUNTER 2023-10-22 08:40 | Outpatient (REF) | payer MEDICARE, SELFPAY ==
--- NOTE | ~2023-10-22 | CT_ITS ---
EXAMINATION: CT ANGIOGRAM ABDOMEN CLINICAL INFORMATION: Splenic artery aneurysm. COMPARISON: CTA chest 08/04/2022. TECHNIQUE: Multiple axial images were obtained through the abdomen following the administration of 100 mL Omnipaque 350 intravenous contrast. Maximum intensity projection vascular images were produced and reviewed. This CT examination was performed using dose optimization techniques as appropriate, variously including the following: *Automated exposure control *Adjustment of mA and/or kV according to patient size (this includes techniques or standardized protocols for targeted exams where dose is matched to indication/reason for exam; i.e. extremities or head) *Use of iterative reconstruction technique DLP: 191 mGy-cm FINDINGS: Lower thoracic aorta is normal in caliber. The abdominal aorta is normal in caliber. There is mild scattered atherosclerotic disease. 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 Mild poststenotic dilatation. The SMA and JUNI are widely patent. There is a peripherally calcified saccular aneurysm at the splenic artery bifurcation measuring 3.0 x 1.6 x 2.2 cm. On the prior CTA of the chest this measures 3.0 x 1.7 x 2.1 cm along similar axes. There is been no significant change from prior. No other visceral aneurysms are seen. The right renal artery and the left renal artery are patent. No suspicious lung nodules. There is no visible liver mass. The gallbladder and biliary tree appear normal. No discrete pancreatic mass or ductal dilatation. The spleen appears normal. No adrenal mass. Symmetric nephrograms. No suspicious renal mass. No hydronephrosis. No adenopathy. The included small bowel appears normal. There is mild colonic diverticulosis. Old left-sided rib fractures. Degenerative changes in the spine. A CT/CT angio abdomen IMPRESSION: Stable peripherally calcified saccular aneurysm at the splenic artery bifurcation measuring 3.0 x 1.6 x 2.2 cm compared to 3.0 x 1.7 x 2.1 cm. 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 The SMA and JUNI are widely patent
[2023-10-22] MEDS: iohexoL 350 MG/ML 100 ML INFUS..BTL 80 ML IV (10:44)
[2023-10-22 11:25] LABS: Blood Urea Nitrogen 15 mg/dL (9-16); Estimated Glomerular Filt Rate > 60
[2023-10-22 11:43] LABS: GFR POC > 60
== END 2023-10-22 08:41 | disposition home or self-care (01) ==
LOC: HO.CT 08:40
PROVIDERS: Absent Provider Internal Medicine Medical Oncology; PCP Internal Medicine; Visit Provider Surgery Vascular Surgery
DX: I72.8 Aneurysm of other specified arteries (principal)
CPT/HCPCS: 36415; 74175; 82565; 84520; Q9967

== ENCOUNTER 2023-10-25 10:05 | Outpatient (AMB) | payer MEDICARE, SELFPAY ==
--- NOTE | 2023-10-25 10:13 | MHC.OFFVIS ---
Vital Signs 10/25/23 10:21 Height 6 ft 2 in Weight 221 lb BMI 28.4 Intake Visit Reasons: 6 mo follow up splenic aneurysm s/p CTA Abd 10/21 Intake Note: 6 mo follow up Splenic artery Aneurysm s/p CTA Abd 10/22/23. Pt states only changes in last 6 months is Left LE pre-tibial pain ( Hx of DVT) Pt also states he had some cardiac issues a few months ago and was seen in the ED. Accompanied by: Self / Same As Patient Allergies lisinopril Allergy (Unknown, Verified 10/25/23 10:26) Unknown HPI HPI 6 mo follow up splenic aneurysm s/p CTA Abd 10/21: Details: Very pleasant 73-year-old gentleman presents for follow-up regarding a splenic artery aneurysm. This was an incidental finding on workup for a broken rib. He also has a history of a DVT. He is heterozygous for factor 5 Leiden mutation and positive for anti cardiolipin antibodies as well. The current time he has no issues. He denies no interval changes. He is now for CT scan follow-up. [facility] Medical History (Updated 10/25/23 @ 10:50 by Conor Snowden MD) Right leg DVT ULISSES (obstructive sleep apnea) Allergic rhinitis PVCs (premature ventricular contractions) Nonsustained ventricular tachycardia Cough Obstructive sleep apnea Traumatic tear of supraspinatus tendon of right shoulder Hemorrhoids Impaired glucose tolerance Supraventricular tachycardia Asthma Hypercholesterolemia Lumbar herniated disc Hypertension Surgical History History of cataract surgery History of tonsillectomy History of arthroscopy of left knee Total knee replacement status Family History Father Renal cell cancer Mother Gastric cancer Diabetes Hypertension Breast cancer Social History Household Members: Spouse Housing: House Are you a primary gericare aide teacher to a significant other at home: No Do you presently have visiting nurse or other home services: No Alcohol intake: current Alcohol intake frequency: holidays/special occasions only Patient Tobacco Use Status: Former Tobacco user Quit Date: Tobacco use type: Cigarette Years Smoked: 1969 e-Cigarette/Vaping Use: Never Used Second Hand Smoke Exposure: No service: Yes Current occupational status: employed and retired Current occupational exposures/hazards: No Cognitive needs: No Hearing needs: No Vision needs: Yes (glasses) Review of Systems Const All systems reviewed & are unremarkable except as noted in HPI and below Reports no additional complaints ENT Reports Normal hearing present Card Denies chest pain, Denies chest pain at rest, Denies chest pain with activity and Denies pedal edema Resp Denies cough GI Denies abdominal pain Musc Denies abnormal gait, Denies muscle cramps and Denies radiating pain into limb Skin/Breast Denies skin ulcer and Denies wounds Neuro Reports Normal hearing present and Denies abnormal gait Psych Reports no additional complaints Physical Exam Vital Signs: BMI result Body Mass Index 28.4 Const General: cooperative, healthy appearing and comfortable Orientation/consciousness: oriented to person, oriented to place and oriented to time HEENT Head: Yes normal to inspection Neck Neck: Yes normal visual inspection Carotids: no bruits Chest Chest palpation & inspection: normal inspection of the chest Resp Effort & Inspection: normal respiratory effort and able to speak in complete sentences Auscultation: clear to auscultation bilaterally, no crackles, no rales, no rhonchi and no wheezes Cardio Rate: regular rate Rhythm: regular rhythm Heart sounds: S1 normal heart sound present and S2 normal heart sound present Bruits: no carotid bruits Peripheral pulses: Peripheral pulses 2+ throughout GI Inspection: Yes normal to inspection Skin Wounds: no wounds Hair: normal Neuro General: oriented to person, oriented to place and oriented to time Cranial nerves: Yes CN's II-XII intact bilaterally and Yes Normal hearing present Cognition (Neuro): normal cognition Motor exam (neuro): 5/5 motor strength present throughout Extrem Other: venous exam: No significant superficial varicosities or spider telangiectasias, minimal edema General: No clubbing, No cyanosis and No edema Psych Appearance: grossly normal Mental Status: mental status grossly normal Speech and movement: Normal speech and movement present Results Reviewed Results Reviewed: CT scan dated 10/22/2023 demonstrates splenic aneurysm measuring 3.0 x 1.6 x 2.2 cm. Appears similar to prior. Written report and images were reviewed. Assessment & Plan Assessment & Plan (1) Splenic artery aneurysm: Comment: Reported from [facility] at 1.9 cm 04/2023 Code(s): I72.8 - Aneurysm of other specified arteries Category: Medical Plan: Stable splenic artery aneurysm. It appears to be similar in size and well circumscribed. No intervention indicated. No further follow-up indicated. We did discuss pathophysiology of the process. He was in agreement. Thank you for allowing us to assist in his care. (2) Right leg DVT: Code(s): I82.401 - Acute embolism and thrombosis of unspecified deep veins of right lower extremity Category: Medical Qualifiers: Affected thrombotic vein of extremity: unspecified vein of extremity Chronicity: chronic Qualified Code(s): I82.501 - Chronic embolism and thrombosis of unspecified deep veins of right lower extremity Plan: Stable chronic DVT. He is currently being maintained on Eliquis. Due to his history he may be on lifelong anticoagulation. We did discuss pathophysiology of DVT and use of compression. He will follow up with us on an as-needed basis. Coding Level of Care Code Est Pt Level 4 (97733) Diagnoses Splenic artery aneurysm I72.8 Chronic deep vein thrombosis (DVT) of right lower extremity, unspecified vein I82.501 Affected thrombotic vein of extremity: unspecified vein of extremity Chronicity: chronic
[2023-10-25 10:21] VITALS: BMI 28.4
== END 2023-10-25 10:47 | disposition home or self-care (01) ==
PROVIDERS: PCP Internal Medicine; Visit Provider Surgery Vascular Surgery
DX: I72.8 Aneurysm of other specified arteries (principal); I82.501 Chronic embolism and thrombosis of unspecified deep veins of right lower extremity
CPT/HCPCS: 99213

== ENCOUNTER → 2023-10-25 10:05 | Outpatient (BNVA) | payer MEDICARE, SELFPAY | PROVIDERS: PCP Internal Medicine; Visit Provider Surgery Vascular Surgery | DX: I72.8 Aneurysm of other specified arteries (principal); I82.501 Chronic embolism and thrombosis of unspecified deep veins of right lower extremity | CPT/HCPCS: 99212 ==

== ENCOUNTER 2023-11-12 10:23 | Outpatient (AMB) | payer MEDICARE, SELFPAY ==
[2023-11-12 10:25] VITALS: BP 120/64; PULSE 73; BMI 28.6
--- NOTE | 2023-11-12 10:25 | MHC.OFFVIS ---
Vital Signs 11/12/23 10:25 Height 6 ft 2 in Weight 223 lb 1.725 oz BMI 28.6 BP 120/64 Blood Pressure Location Lt brachial Position Sitting Pulse 73 Intake Visit Reasons: 1 year follow up after echo Food Product Inspector Required: No Accompanied by: Self / Same As Patient Allergies lisinopril Allergy (Unknown, Verified 10/25/23 10:26) Unknown Medication List - Last Reconciled 11/12/23 by Kavin Mcintosh MD amoxicillin 500 mg PO BID apixaban (Eliquis) 5 mg PO BID 90 days cholecalciferol (vitamin D3) 25 mcg PO DAILY losartan 50 mg PO DAILY metoprolol succinate ER 50 mg PO QPM metoprolol succinate ER 100 mg PO QAM rosuvastatin (Crestor) 40 mg PO DAILY sildenafil (Viagra) 100 mg PO DAILY PRN HPI Comments Details: Ronnie comes for follow-up. He had an echocardiogram recently which showed early mild aortic stenosis. LV systolic function is within normal limits. He had 2 episodes of feeling fluttering in his chest and then had shakiness. One of the episode led him to come to the emergency room. By the time he came to the emergency room is shakiness had stopped. Her this lasted for prolonged period time. The other episode lasted for 2 hours. Had some fluttering in his chest followed by shakiness. He now recalls that both these episodes were triggered by him taking caffeine. Since then he has had no further episodes. He had a Holter monitor in August which showed frequent PVCs but without any episodes of nonsustained VT. He also has a smart phone based EKG device which did not show any arrhythmias does episodes and showed predominantly sinus rhythm. He denies any syncopal episodes. Denies any exertional chest pain. Does get exertional shortness of breath when he climbs 4 flights of stairs. No orthopnea, PND, leg edema. [facility] Medical History Right leg DVT ULISSES (obstructive sleep apnea) Allergic rhinitis PVCs (premature ventricular contractions) Nonsustained ventricular tachycardia Cough Obstructive sleep apnea Traumatic tear of supraspinatus tendon of right shoulder Hemorrhoids Impaired glucose tolerance Supraventricular tachycardia Asthma Hypercholesterolemia Lumbar herniated disc Hypertension Surgical History History of cataract surgery History of tonsillectomy History of arthroscopy of left knee Total knee replacement status Family History Father Renal cell cancer Mother Gastric cancer Diabetes Hypertension Breast cancer Social History Household Members: Spouse Housing: House Are you a primary healthcare analyst to a significant other at home: No Do you presently have visiting nurse or other home services: No Alcohol intake: current Alcohol intake frequency: holidays/special occasions only Patient Tobacco Use Status: Former Tobacco user Quit Date: Tobacco use type: Cigarette Years Smoked: 1969 e-Cigarette/Vaping Use: Never Used Second Hand Smoke Exposure: No service: Yes Current occupational status: employed and retired Current occupational exposures/hazards: No Cognitive needs: No Hearing needs: No Vision needs: Yes (glasses) Review of Systems Const Denies chills, Denies fatigue, Denies fever(s), Denies frequent falls, Denies weakness, Denies weight gain and Denies weight loss ENT Denies dizziness Card Denies chest pain, Denies leg edema, Denies lightheadedness, Denies palpitations, Denies dyspnea and Denies dyspnea on exertion Resp Denies cough, Denies dyspnea and Denies dyspnea on exertion GI Denies hematochezia Musc Denies abnormal gait, Denies muscle weakness, Denies numbness, Denies radiating pain into limb and Denies tingling Neuro Denies abnormal gait, Denies dizziness, Denies frequent falls, Denies numbness, Denies tingling and Denies weakness Endo Denies fatigue and Denies palpitations Physical Exam Vital Signs: Last Vital Signs Pulse 73 11/12/23 10:25 BP 120/64 11/12/23 10:25 BMI result Body Mass Index 28.6 Const General: cooperative, healthy appearing, comfortable and no acute distress Orientation/consciousness: patient oriented x3 Resp Effort & Inspection: normal respiratory effort Auscultation: clear to auscultation bilaterally, no crackles, no rales, no rhonchi and no wheezes Cardio Jugular venous distension: no JVD Rate: regular rate Rhythm: regular rhythm Heart sounds: S1 normal heart sound present, S2 normal heart sound present, Murmur heart sound present systolic early, decrescendo and crescendo and no rubs Neuro General: patient oriented x3 Extrem Other: Minimal swelling above sock on right lower leg General: Yes normal to inspection Psych Appearance: grossly normal Mental Status: mental status grossly normal Speech and movement: Normal speech and movement present Office Procedures EKG Details: EKG shows normal sinus rhythm with normal EKG [id number], Complete Assessment & Plan Assessment & Plan (1) Aortic stenosis: Code(s): I35.0 - Nonrheumatic aortic (valve) stenosis Category: Medical Plan: Aortic stenosis which is very mild and early. He has a clinical murmur consistent with it. Continue aggressive risk factor modification. Continue high-intensity statin therapy with target goal LDL less than 70 mg/dL. Continue aggressive blood pressure control which is currently well optimized. He is currently on full oral anticoagulation due to hypercoagulable state with Eliquis and therefore would avoid aspirin therapy. Will monitor with echocardiogram next year. Management of aortic stenosis were discussed in details. Pathophysiology was discussed. (2) Nonsustained ventricular tachycardia: Code(s): I47.2 - Ventricular tachycardia Category: Medical Plan: Prior history of nonsustained ventricular tachycardia with no obvious clinical recurrence at this point time. Continues to have frequent PVCs. Although he is symptoms of shakiness appear to be more caffeine related catecholamine surge rather than cardiac arrhythmias. This was discussed with him. Avoidance of caffeine was discussed. Continue metoprolol therapy. (3) Hypertension: Code(s): I10 - Essential (primary) hypertension Category: Medical Qualifiers: Hypertension type: essential hypertension Qualified Code(s): I10 - Essential (primary) hypertension Plan: Hypertension which is currently well optimized advised to monitor blood pressure at home maintain a log. Goal blood pressure less than 130/84. Continue current metoprolol and losartan therapy. Low-salt diet was discussed. Encouraged to continue to participate in physical activity as tolerated. Will follow up in the clinic in 1 year's time, sooner p.r.n.. Thank you for allowing me to partake in his care Orders: Orders CA echo transthorac w con 1 Year I35.0 - Nonrheumatic aortic (valve) stenosis Coding Level of Care Code Est Pt Level 4 (02297) Diagnoses Aortic stenosis I35.0 Nonsustained ventricular tachycardia I47.2 Essential hypertension I10 Hypertension type: essential hypertension CPT Codes EKG - CPT: 03106-[id number], Complete ([id number])
== END 2023-11-12 11:07 | disposition home or self-care (01) ==
PROVIDERS: Visit Provider Internal Medicine Cardiovascular Disease
DX: I35.0 Nonrheumatic aortic (valve) stenosis (principal); I47.20 Ventricular tachycardia, unspecified; I10 Essential (primary) hypertension
CPT/HCPCS: 93010; 99214

== ENCOUNTER → 2023-11-12 10:23 | Outpatient (BNVA) | payer MEDICARE, SELFPAY | PROVIDERS: Visit Provider Internal Medicine Cardiovascular Disease | DX: I35.0 Nonrheumatic aortic (valve) stenosis (principal); I47.20 Ventricular tachycardia, unspecified; I10 Essential (primary) hypertension | CPT/HCPCS: 93005; 99212 ==

== ENCOUNTER 2023-12-07 09:20 | Outpatient (AMB) | payer MEDICARE, SELFPAY ==
[2023-12-07 09:21] VITALS: BP 130/72; PULSE 70; O2SAT 95; BMI 28.6
--- NOTE | 2023-12-07 09:21 | A.OFFPC_ITS ---
Vital Signs 12/07/23 09:21 Height 6 ft 2 in Weight 223 lb 0.4 oz BMI 28.6 BP 130/72 Blood Pressure Location Lt brachial Position Sitting Pulse 70 Pulse Source Pulse Oximeter Pulse Oximetry (%) 95 Oxygen Delivery Method Room Air Intake Visit Reasons: 3mth f/u Vp [employer]s Required: No Allergies lisinopril Allergy (Unknown, Verified 12/07/23 09:22) Unknown Tobacco use date assessed: 12/07/23 Fall risk assessment: No Falls in past year Last assessed Fall Risk: 12/07/23 Dental Screening Dental Screen Date: 12/07/23 Did you have a dental visit in the last 12 months?: Yes Did you have a dental problem in the last 6 months where you did not have access to dental care?: No Was dental information given to patient?: Patient has dentist HPI 3mth f/u HPI Details 73-year-old overweight male with hyperte nsion hypercholesterolemia asth ma impaired glucose tolerance history of right leg DVT on anticoagulation with a positive anti cardiolipin antibody history of splenic artery aneurysm which has been followed up. Patient also being followed up by Cardiology for nonsustained ventricular tachycardia. Patient was last seen in 09/12/2023. Patient did see cardiology November 11 echocardiogram showing early/mild aortic stenosis question of tremors triggered by caffeine. Had Holter in August no episodes of VT patient was advised to hold off from caffeine with mild aortic stenosis aggressive risk factor modification blood pressure control cholesterol control continuing anticoagulation vascular surgeon note 11/12/2023 continue to monitor the splenic artery aneurysm which is stable continue with Eliquis. complains of sob and tremors. Discussed my concerns with the patient with regards to tremors in shortness of breath patient has a history of blood clot and June had chronic left leg DVT and with that patient is on an anticoagulant toe discussed about getting the blood work concern about throwing blood clots due to the history of left leg DVT but then again patient is on a blood thinner. Meaning no changes in management. As for the cholesterol discussed about lowering risk for any cardiac problem would get LDL goal of less than 70. Will retest [facility] Medical History Right leg DVT ULISSES (obstructive sleep apnea) Allergic rhinitis PVCs (premature ventricular contractions) Nonsustained ventricular tachycardia Cough Obstructive sleep apnea Traumatic tear of supraspinatus tendon of right shoulder Hemorrhoids Impaired glucose tolerance Supraventricular tachycardia Asthma Hypercholesterolemia Lumbar herniated disc Hypertension Surgical History History of cataract surgery History of tonsillectomy History of arthroscopy of left knee Total knee replacement status Family History Father Renal cell cancer Mother Gastric cancer Diabetes Hypertension Breast cancer Social History Household Members: Spouse Housing: House Are you a primary special needs caregiver to a significant other at home: No Do you presently have visiting nurse or other home services: No Alcohol intake: current Alcohol intake frequency: holidays/special occasions only Patient Tobacco Use Status: Former Tobacco user Tobacco use type: Cigarette Years Smoked: 1969 e-Cigarette/Vaping Use: Never Used Second Hand Smoke Exposure: No service: Yes Current occupational status: employed and retired Current occupational exposures/hazards: No Cognitive needs: No Hearing needs: No Vision needs: Yes (glasses) Questionnaire PHQ-9 Over the last 2 weeks, how often have you been bothered by any of the following problems? 1. Little interest or pleasure in doing things: not at all 2. Feeling down, depressed, or hopeless: not at all 3. Trouble falling or staying asleep, or sleeping too much: not at all 4. Feeling tired or having little energy: not at all 5. Poor appetite or overeating: not at all 6. Feeling bad about yourself - or that you are a failure or have let yourself or your family down: not at all 7. Trouble concentrating on things, such as reading the newspaper or watching television: not at all 8. Moving or speaking so slowly that other people could have noticed. Or the opposite - being so fidgety or restless that you have been moving around a lot more than usual: not at all 9. Thoughts that you would be better off or of hurting yourself in some way: not at all Total score: 0 Depression Screening Interpretation: Negative Depression Screening Done: Yes Source: Developed by Drs. Estiven Cabral, Nat Ibarra, Parrish Nickerson and colleagues, with an educational haley from [employer]. Thrive Questionnaire Date Thrive assessed: 12/07/23 I am a: Patient What is your living situation today?: I have a steady place to live Within the past 12 months, did the food you bought not last and you didn't have the money to get more?: Never true Within the past 12 months, did you worry whether your food would run out before you got money to buy more?: Never true Do you have trouble paying for medicines?: No Do you have trouble getting transportation to medical appointments?: No Do you have trouble paying your heating and electricity bill?: No Do you have trouble taking care of your child, family member or friend?: No Do you have trouble with day-to-day activities such as bathing, preparing meals, shopping, managing finances, etc.?: No Are you currently unemployed and looking for a job?: No Are you interested in more education?: No Please select the resources that you would like help with: None Currently or been in a relationship where the following occur: no concerns reported THRIVE Score: 0 AUDIT C Alcohol Use Questionnaire (AUDIT-C) 1. How often do you have a drink containing alcohol?: Monthly or less 2. How many drinks containing alcohol do you have on a typical day when you are drinking?: 1 or 2 3. How often do you have six or more drinks on one occasion?: Never Total Score: 1 Score Reviewed/Action Taken: Yes IKER-7 AMB Questionnaire IKER-7 Date IKER - 7 assessed: 12/07/23 Source: Developed by Drs. Estiven Cabral, Nat Ibarra, Parrish Nickerson and colleagues, with an educational haley from [employer]. Physical exam (Primary Care) Vital Signs: Last Vital Signs Pulse 70 12/07/23 09:21 BP 130/72 12/07/23 09:21 Pulse Ox 95 12/07/23 09:21 Oxygen Delivery Method Room Air 12/07/23 09:21 BMI result Body Mass Index 28.6 Tobacco/Smoking Status: Tobacco use Status Tobacco use date assessed 12/07/23 12/07/23 09:23 Patient Tobacco Use Status Former Tobacco user 12/07/23 09:23 Tobacco use type Cigarette 12/07/23 09:23 e-Cigarette/Vaping Use Never Used 12/07/23 09:23 PHQ-9: PHQ-9 Score PHQ-9: Total score 0 12/07/23 09:23 Depression Screening Interpretation: Negative Thrive Assessment: Date of Thrive Assessment Date Thrive assessed 12/07/23 12/07/23 09:23 Currently or been in a relationship where the following occur: no concerns reported Const General: alert; No acute distress Eyes Conjunctivae: conjunctivae normal Resp Auscultation: clear to auscultation bilaterally Cardio Rate: regular rate Rhythm: regular rhythm GI Inspection: Yes normal to inspection Extrem General: Yes normal to inspection and No edema Assessment and Plan Assessment & Plan (1) Hypertension: Code(s): I10 - Essential (primary) hypertension Qualifiers: Hypertension type: essential hypertension Qualified Code(s): I10 - Essential (primary) hypertension Plan: Continue with blood pressure medication. Decrease salt intake and exercise on metoprolol 150 mg once a day losartan 50 mg once a day (2) Hypercholesterolemia: Code(s): E78.00 - Pure hypercholesterolemia, unspecified Plan: Avoid fried foods, chicken skin, eggs, butter margarine, pastries and meat. Be it pork or beef they have a lot of cholesterol LDL goal of less than 70 on rosuvastatin 40 mg once a day (3) Asthma: Comment: Cough may be an asthma variant, and we would need to do a complete pulmonary function test to check for that. Code(s): J45.909 - Unspecified asthma, uncomplicated Qualifiers: Asthma severity: mild Asthma persistence: intermittent Asthma complication type: uncomplicated Qualified Code(s): J45.20 - Mild intermittent asthma, uncomplicated Plan: Stable (4) Impaired glucose tolerance: Code(s): R73.02 - Impaired glucose tolerance (oral) Plan: Decrease the amount of carbohydrate intake, pasta, bread, rice and potatoes are all sugar and that is aside from all the sweet stuff, remember that fruits are good but they are Sweet also. (5) Nonsustained ventricular tachycardia: Code(s): I47.2 - Ventricular tachycardia Plan: Non recurrence patient is being monitored by Cardiology (6) Right leg DVT: Comment: October 2021, June 2023 Code(s): I82.401 - Acute embolism and thrombosis of unspecified deep veins of right lower extremity Plan: Continuing with anticoagulation, test renal function (7) ULISSES (obstructive sleep apnea): Comment: He does have moderately severe obstructive sleep apnea. 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 Patient has not been able to use CPAP. I discussed with him the conservative measures are treatment including, weight reduction, always sleep in lateral position. Code(s): G47.33 - Obstructive sleep apnea (adult) (pediatric) Plan: Patient can not tolerate CPAP (8) Splenic artery aneurysm: Comment: Reported from [facility] at 1.9 cm 04/2023 Code(s): I72.8 - Aneurysm of other specified arteries Plan: This is being followed up by the vascular surgeon (9) Aortic stenosis: Comment: Mild 2023 Code(s): I35.0 - Nonrheumatic aortic (valve) stenosis Plan: Mild follows up with Cardiology 1 year echocardiogram Orders: Orders Complete Blood Count Auto Diff Today I82.401 - Acute embolism and thrombosis of unspecified deep veins of right lower extremity Vitamin B12 and Folate Today I82.401 - Acute embolism and thrombosis of unspecified deep veins of right lower extremity Comprehensive Met. Panel Today I82.401 - Acute embolism and thrombosis of unspecified deep veins of right lower extremity Free T4 (Free Thyroxine) Today I82.401 - Acute embolism and thrombosis of unspecified deep veins of right lower extremity Thyroid Stimulating Hormone Today I82.401 - Acute embolism and thrombosis of unspecified deep veins of right lower extremity Lipid Panel Today E78.00 - Pure hypercholesterolemia, unspecified, I82.401 - Acute embolism and thrombosis of unspecified deep veins of right lower extremity Coding Level of Care Code Est Pt Level 4 (77819) Diagnoses Essential hypertension I10 Hypertension type: essential hypertension Hypercholesterolemia E78.00 Mild intermittent asthma without complication J45.20 Asthma severity: mild Asthma persistence: intermittent Asthma complication type: uncomplicated Impaired glucose tolerance R73.02 Nonsustained ventricular tachycardia I47.2 Right leg DVT I82.401 ULISSES (obstructive sleep apnea) G47.33 Splenic artery aneurysm I72.8 Aortic stenosis I35.0 Additional Codes PHQ-9 - 33151 - PHQ-9 Billing: ([id number])
== END 2023-12-07 10:05 | disposition home or self-care (01) ==
PROVIDERS: PCP Internal Medicine; Visit Provider Internal Medicine
DX: I10 Essential (primary) hypertension (principal); I47.20 Ventricular tachycardia, unspecified; I82.401 Acute embolism and thrombosis of unspecified deep veins of right lower extremity; I72.8 Aneurysm of other specified arteries; R73.02 Impaired glucose tolerance (oral); E78.00 Pure hypercholesterolemia, unspecified; J45.20 Mild intermittent asthma, uncomplicated; G47.33 Obstructive sleep apnea (adult) (pediatric); I35.0 Nonrheumatic aortic (valve) stenosis
CPT/HCPCS: 99214

== ENCOUNTER 2024-03-03 12:48 | Outpatient (AMB) | payer MEDICARE, SELFPAY ==
--- NOTE | 2024-03-03 12:49 | A.OFFPC_ITS ---
Intake Visit Reasons: COVID Pos. Supervisor Dog License Officer Required: No Accompanied by: Self / Same As Patient Allergies lisinopril Allergy (Unknown, Verified 03/03/24 12:49) Unknown Tobacco use date assessed: 12/07/23 Fall risk assessment: 1 Fall in past year Last assessed Fall Risk: 03/03/24 Dental Screening Dental Screen Date: 12/07/23 HPI COVID Pos. HPI Details 73-year-old male with hypertension hyper cholesterolemia impaired glucose tolerance history of nonsustained ventricular tachycardia right leg DVT on anticoagulation obstructive sleep apnea aortic stenosis mild and splenic artery aneurysm calling in for COVID-19 infection. Last seen in 12/13/2023. tested yesterday yesterday 3 days ago sneezeds and runny nose and TAFOYA, fever, chills- has spoke to Dr. Pat and advised stop choelsterol and decrease eliquis, patient was prescribed the antiviral Paxlovid [facility] Medical History Right leg DVT ULISSES (obstructive sleep apnea) Allergic rhinitis PVCs (premature ventricular contractions) Nonsustained ventricular tachycardia Cough Obstructive sleep apnea Traumatic tear of supraspinatus tendon of right shoulder Hemorrhoids Impaired glucose tolerance Supraventricular tachycardia Asthma Hypercholesterolemia Lumbar herniated disc Hypertension Surgical History History of cataract surgery History of tonsillectomy History of arthroscopy of left knee Total knee replacement status Family History Father Renal cell cancer Mother Gastric cancer Diabetes Hypertension Breast cancer Social History Household Members: Spouse Housing: House Are you a primary personal care aid to a significant other at home: No Do you presently have visiting nurse or other home services: No Alcohol intake: current Alcohol intake frequency: holidays/special occasions only Patient Tobacco Use Status: Former Tobacco user Tobacco use type: Cigarette Years Smoked: 1970 e-Cigarette/Vaping Use: Never Used Second Hand Smoke Exposure: No service: Yes Current occupational status: employed and retired Current occupational exposures/hazards: No Cognitive needs: No Hearing needs: No Vision needs: Yes (glasses) Questionnaire Thrive Questionnaire Date Thrive assessed: 12/07/23 AUDIT C Alcohol Use Questionnaire (AUDIT-C) 2. How many drinks containing alcohol do you have on a typical day when you are drinking?: 1 or 2 3. How often do you have six or more drinks on one occasion?: Never Total Score: 0 IKER-7 AMB Questionnaire IKER-7 Date IKER - 7 assessed: 12/07/23 Source: Developed by Drs. Estiven Cabral, Nat Ibarra, Parrish Nickerson and colleagues, with an educational haley from [employer]. Physical exam (Primary Care) Tobacco/Smoking Status: Tobacco use Status Tobacco use date assessed 12/07/23 03/03/24 12:50 Patient Tobacco Use Status Former Tobacco user 03/03/24 12:50 Tobacco use type Cigarette 03/03/24 12:50 e-Cigarette/Vaping Use Never Used 03/03/24 12:50 Thrive Assessment: Date of Thrive Assessment Date Thrive assessed 12/07/23 03/03/24 12:50 Telehealth Telehealth Telehealth Platform: Telephone Location of provider rendering services: practice address Location of patient: address on file Patient Identification confirmed using: Name, : Yes Telehealth method: voice only (android) Patient verbally consented to treatment: Yes Patient verbally consented to billing insurance company: Yes Patient informed of any privacy concerns related to visit: Yes Minutes spent on Phone/Video with Pt.: 15 Assessment and Plan Assessment & Plan Patient Instructions: Patient has been prescribed the antiviral Paxlovid. Has been advised to decrease Eliquis to half the dose and stop the cholesterol medication while on this. For the sore throat can take Cepacol lozenges, discussed about Delsym to help with dry cough so she can rest and advised to increase oral fluids. Patient also can take Tylenol for chills and fever. Coding Level of Care Code Tele Est Pt Level 3 (22953)
--- OUTSIDE RECORDS SUMMARY | 2024-03-03 12:49 | XMS_ITS | Patient Health Record ---
Author Organization [facility] Address [address] [place] [address] Care Team Providers Care Nurse Wound Care Name Role Phone Po Veronica WIGGINS Primary Care Provider Estiven Alejo Unavailable [phone] ALLERGIES No Known Allergies REASON FOR REFERRAL No Information MEDICATIONS Medication SIG (Take, Route, Frequency, Duration) Notes Start Date End Date Status Naproxen 500 MG 1 tablet as needed O rally every 12 hrs Active Indomethacin 50 MG Oral for 15 Active Amoxicillin 500 MG 1 capsule Orally *4/ 1 hr before dental work Active Viagra 100 MG 1 tablet as needed O rally Once a day for 30 day(s) Active tiZANidine HCl 4 MG 1 tablet as needed O rally Three times a day Active Rosuvastatin Calcium 40 MG TAKE 1 TABLET BY MOUTH DAILY Diagnosis Unavailable Oral for 90 Active Losartan Potassium 25 MG Oral for 90 Active Metoprolol Succinate ER 100 MG TAKE1- 1/2 TABLET BY MOUTH EVERY MORNING Diagnosis Unavailable Oral Once a day Active HYDROcodone-Acetaminophen 5-325 MG Oral for 7 Active Vitamin D 50 MCG (1999) 1 capsule Ora lly Once a day for 30 day(s) Active Yumi Allergy 180 MG 1 tablet Swallow whole with water; do not take with fruit juices. Orally Once a day for 30 day(s) Active IMMUNIZATIONS Vaccine Route Administration Date Status Comme nts Influenza Unknown 04/27/2021 Administered SOCIAL HISTORY Tobacco Use: Social History Observation Description Date Details (start date - stop date) Never Smoker NA - NA Sex Assigned At : Social History Observation Description Sex Assigned At Unknown Tobacco Use/Smoking Question Answer Notes Patient is a nonsmoker Alcohol Screen Question Answer Notes Did you have a drink contain ing alcohol in the past year? Yes How often did you have a dri nk containing alcohol in the past year? 2 to 4 times a month (2 points) How many drinks did you have on a typical day when you were drinking in the past year? 1 or 2 drinks (0 point) How often did you have 6 or more drinks on one occasion in the past year? Never (0 point) Points 2 Interpretation Negative PROBLEMS Problem Type ICD Code Onset Dates Problem Status W/U Status Risk SNOMED Code Notes Problem Change in bowel habits (R19.4) Active confirmed 631718156 Problem Encounter for screening for malignant neoplasm of colon (Z12.11) Active confirmed 124222308 Problem Diverticulosis of colon (K57.30) Active confirmed Diverticulosi s of colon (834607272) PLAN OF TREATMENT Future Test Test Name Order Date COLONOSCOPY 05/11/2021 Insurance Providers Payer Name Payer Address Payer Phone Subscriber Number Group Number Insured Name Patient Relationship to Insured Coverage Start Date Coverage End Date [facility] [address] [place] [phone] [id number] PAO BUENROSTRO Self - patient is the insured MEDICAL (GENERAL) HISTORY Medical History History ICD Code NSVT- Non sustained ventricu lar tachycardia - 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
== END 2024-03-03 13:19 | disposition home or self-care (01) ==
LOC: HO.HMGH 12:48
PROVIDERS: PCP Internal Medicine; Visit Provider Internal Medicine
DX: U07.1 COVID-19 (principal)
CPT/HCPCS: 99442

== ENCOUNTER 2024-09-30 12:57 | Outpatient (REF) | payer MEDICARE, SELFPAY ==
[2024-09-30 13:10] LABS: MANUAL DIFF FLAG NO
[2024-09-30 13:40] LABS: Basophils Absolute Auto 0.2 X10*3/uL (0.0-0.2); Basophils Percent Auto 2.2 % (0-2); Eosinophils Absolute Auto 0.3 X10*3/uL (0.0-0.4); Eosinophils Percent Auto 3.6 % (0-4); Hematocrit 44.3 % (42.0-52.0); Hemoglobin 14.6 g/dl (14.0-18.0); Imm Gran Abs Auto 0.03 X10*3/uL (0.00-0.03); Imm Gran Pct Auto 0.4 % (0.0-0.4); Lymphocytes Absolute Auto 1.2 X10*3/uL (1.2-4.9); Lymphocytes Percent Auto 14.3 % (20-40); Mean Corpuscular Hemoglobin 26.9 pg (27.0-33.0); Mean Corpuscular Volume 81.7 fL (80.0-98.0); Mean Platelet Volume 9.9 fL (9.4-12.4); Monocytes Absolute Auto 0.9 X10*3/uL (0.1-1.2); Monocytes Percent Auto 10.9 % (2-11); Neutrophils Absolute Auto 5.6 x10*3/uL (2.0-8.3); Neutrophils Percent Auto 68.6 % (45-73); Platelet Count 245 X10*3/uL (160-400); Red Blood Count 5.42 X10*6/uL (4.60-5.80); Red Cell Distribution Width 13.7 % (11.0-16.0); White Blood Count 8.1 X10*3/uL (4.8-10.8)
[2024-09-30 15:23] LABS: Folate 7.4 ng/mL (> or = 4.0); Vitamin B12 584 pg/mL (200-900)
--- OUTSIDE RECORDS SUMMARY | 2024-09-30 15:41 | XMS_ITS | Clinical Summary ---
Author Organization [facility] Address [address] [place] [address] Care Team Providers Care Drafter Commercial Name Role Phone Veronica Malone Primary Care Provider [phone] Medications lidocaine (LIDODERM) 5% patch Apply 1 patch topically to the affected area once a day. Remove and discard patch within 12 hours or as directed. 10 patch Active Social History Tobacco Use Types Packs/Day Years Used Date Smoking Tobacco: Never Assessed Sex and Gender Information Value Date Recorded Sex Assigned at Male 05/08/2023 3:07 PM EST Legal Sex Male 2:55 PM EST Gender Identity Male 05/08/2023 3:07 PM EST Sexual Orientation Not on file Last Filed Vital Signs Vital Sign Reading Time Taken Comments Blood Pressure 165/93 05/08/2023 5:32 PM EST Pulse 67 05/08/2023 5:32 PM EST Temperature 37 ??C (98.6 ??F) 05/08/2023 4:49 PM EST Respiratory Rate 13 05/08/2023 5:32 PM EST Oxygen Saturation 97% 05/08/2023 5:32 PM EST Inhaled Oxygen Concentration - - Weight - - Height - - Body Mass Index - - Plan of Treatment Health Maintenance Due Date Last Done Comments Hepatitis C Screening 1950 Pneumococcal Vaccine: 50+ Years (2 of 2 - PPSV23) 06/29/2017 06/29/2016 RSV Vaccine (60+ years old and patients) (1 - 1-dose 75+ series) 2023 COVID-19 Vaccine ( - 2023-2 5 season) 2024 04/15/2021 Alcohol/Substance Use Screening 06/25/2024 Depression Screening and Follow-Up 06/25/2024 Health Care Proxy Review 06/25/2024 Social Drivers of Health Annual Screening 06/25/2024 Influenza Vaccine (Season Ended) 2025 04/27/2021, 04/15/2021, 02/18/2020 DTaP,Tdap,and Td Vaccines (2 - Td or Tdap) 05/23/2028 05/23/2018, 03/16/2017 Zoster Vaccines Completed 01/03/2021, 07/04/2020 Hepatitis B Vaccines Aged Out No long er eligible based on patient's age to complete [place] [id number] [facility] Advance Directives Healthcare Agents on File Name Relationship Healthcare Agent Relationshi p Communication Citlaly Beasley Spouse Health Care Agent Danny Gale Son Alternate Health Care Agent Care Teams Drafter Commercial Relationship Specialty Start Date End Date Veronica Malone [address] [place] [address] [place] [address] PCP - General Internal Medicine 05/08/23
--- OUTSIDE RECORDS SUMMARY | 2024-09-30 15:41 | XMS_ITS | Patient Health Record ---
Author Organization [facility] Address [address] [place] [address] Care Team Providers Care Timber Sizer Operator Name Role Phone Po Veronica WIGGINS Primary Care Provider Estiven Alejo Unavailable [phone] Allergies No Known Allergies Reason For Referral No Information Medications Medication SIG (Take, Route, Frequency, Duration) Notes [...] Once a day for 30 day(s) Active Immunizations Vaccine Route Administration Date Status Comme nts Influenza Unknown 04/27/2021 Administered Social History Tobacco Use: Social History Observation Description Date Details (start date - stop date) Never Smoker NA - NA Tobacco Use/Smoking Question Answer Notes Patient is [...] Never (0 point) Points 2 Interpretation Negative Section Notes: Nonsmoker; no sig alcohol Problems Problem Type SNOMED Code ICD Code Onset Dates Problem Status W/U Status Risk Notes Problem 501900316 Encounter for screening for malignant neoplasm of colon (Z12.11) Active confirmed Problem 493018134 Change in bowel habits (R19.4) Active confirmed Problem Diverticulosis of colon (890089169) Diverticulosis of colon (K57.30) Active confirmed Plan Of Treatment Future Test Test Name Order Date COLONOSCOPY 05/11/2021 Insurance Providers Payer Name Payer Address Payer Phone Subscriber Number Group Number Insured Name Patient Relationship to Insured Coverage Start Date Coverage End Date [facility] [address] [place] [phone] [id number] PAO BUENROSTRO Self - patient is the insured Medical (General) History Medical History History ICD Code NSVT- Non sustained ventricu lar tachycardia - 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
--- OUTSIDE RECORDS SUMMARY | 2024-09-30 15:42 | XMS_ITS | Referral Summary ---
Author Organization [facility] Address [address] [place] [address] Care Team Providers Care Talent Development Manager Name Role Phone Veronica Malone Primary Care Provider [phone] Medications lidocaine (LIDODERM) 5% patch Apply 1 [...] Mass Index - - Plan of Treatment Not on file Insurance [facility] Advance Directives Healthcare Agents on File Name Relationship Healthcare Agent [facility] Communication Citlaly Ruffmyah Spouse Health Care Agent Danny Gale Son Alternate Health Care Agent Care Teams Talent Development Manager Relationship Specialty Start Date End Date Veronica Malone [address] [place] [address] [place] [address] PCP - General Internal Medicine 05/08/23
[2024-09-30 16:47] LABS: Alanine Aminotransferase 25 U/L (0-40); Albumin Level 4.2 g/dL (3.5-5.0); Alkaline Phosphatase 67 U/L (39-117); Anion Gap 9 (12-20); Aspartate Amino Transferase 24 U/L (5-37); Bilirubin Total 0.6 mg/dL (0.0-1.0); Blood Urea Nitrogen 16 mg/dL (9-16); Calcium 9.7 mg/dL (8.4-10.2); Carbon Dioxide 30 mmol/L (22-29); Chloride 108 mmol/L (96-108); Cholesterol 142 mg/dL (<200); Estimated Glomerular Filt Rate > 60; Glucose Random 71 mg/dL (60-115); HDL Cholesterol 46 mg/dL (>40); LDL Cholesterol Calculated 74 mg/dL (<100); Potassium 4.5 mmol/L (3.3-5.1); Sodium 142 mmol/L (135-145); Total Protein 7.6 g/dL (6.5-8.0); Triglycerides 114 mg/dL (<150)
[2024-09-30 17:06] LABS: Free T4 (Free Thyroxine) 1.04 ng/dL (0.71-1.85); Thyroid Stimulating Hormone 2.43 uIU/mL (0.32-4.0)
== END 2024-09-30 12:58 | disposition home or self-care (01) ==
LOC: HO.LAB 12:57
PROVIDERS: PCP Internal Medicine; Visit Provider Internal Medicine
DX: I82.401 Acute embolism and thrombosis of unspecified deep veins of right lower extremity (principal); E78.00 Pure hypercholesterolemia, unspecified
CPT/HCPCS: 36415; 80053; 80061; 82607; 82746; 84439; 84443; 85025

== ENCOUNTER 2024-10-02 08:53 | Outpatient (AMB) | payer MEDICARE, SELFPAY ==
[2024-10-02 08:59] VITALS: BP 136/72; PULSE 70; O2SAT 97; BMI 28.4
--- NOTE | 2024-10-02 08:59 | MHC.PC.OV ---
Vital Signs 10/02/24 08:59 Height 6 ft 2 in Weight 221 lb BMI 28.4 BP 136/72 Blood Pressure Location Lt brachial Position Sitting Pulse 70 Pulse Source Pulse Oximeter Pulse Oximetry (%) 97 Oxygen Delivery Method Room Air Intake Visit Reasons: Annual PE - see comments Allergies lisinopril Allergy (Unknown, Verified 10/02/24 09:00) Unknown Medication List - Last Reconciled 10/02/24 by Veronica Malone MD apixaban (Eliquis) 5 mg PO BID 90 days cholecalciferol (vitamin D3) 25 mcg PO DAILY losartan 50 mg PO DAILY metoprolol succinate ER 100 mg PO QAM metoprolol succinate ER 50 mg PO QPM rosuvastatin (Crestor) 40 mg PO DAILY sildenafil (Viagra) 100 mg PO DAILY PRN Tobacco use date assessed: 10/02/24 Fall risk assessment: No Falls in past year Last assessed Fall Risk: 10/02/24 Dental Screening Dental Screen Date: 10/02/24 Did you have a dental visit in the last 12 months?: Yes Did you have a dental problem in the last 6 months where you did not have access to dental care?: No Was dental information given to patient?: Patient has dentist HPI Annual PE - see comments HPI Details strates wakes up sob, states sob on exertion PFSH Medical History Right leg DVT ULISSES (obstructive sleep apnea) Allergic rhinitis PVCs (premature ventricular contractions) Nonsustained ventricular tachycardia Cough Obstructive sleep apnea Traumatic tear of supraspinatus tendon of right shoulder Hemorrhoids Impaired glucose tolerance Supraventricular tachycardia Asthma Hypercholesterolemia Lumbar herniated disc Hypertension Surgical History History of cataract surgery History of tonsillectomy History of arthroscopy of left knee Total knee replacement status Family History Father Renal cell cancer Mother Gastric cancer Diabetes Hypertension Breast cancer Social History (Updated 10/02/24 @ 09:23 by Veronica Malone MD) Household Members: Spouse Housing: House Are you a primary child care counselor to a significant other at home: No Do you presently have visiting nurse or other home services: No Alcohol intake: current Alcohol intake frequency: holidays/special occasions only Comment: 2x a week 1 beer Patient Tobacco Use Status: Former Tobacco user Tobacco use type: Cigarette Years Smoked: 1969 e-Cigarette/Vaping Use: Never Used Second Hand Smoke Exposure: No service: Yes Current occupational status: employed and retired Current occupational exposures/hazards: No Cognitive needs: No Hearing needs: No Vision needs: Yes (glasses) Questionnaire PHQ-9 Over the last 2 weeks, how often have you been bothered by any of the following problems? 1. Little interest or pleasure in doing things: not at all 2. Feeling down, depressed, or hopeless: not at all 3. Trouble falling or staying asleep, or sleeping too much: not at all 4. Feeling tired or having little energy: not at all 5. Poor appetite or overeating: not at all 6. Feeling bad about yourself - or that you are a failure or have let yourself or your family down: not at all 7. Trouble concentrating on things, such as reading the newspaper or watching television: not at all 8. Moving or speaking so slowly that other people could have noticed. Or the opposite - being so fidgety or restless that you have been moving around a lot more than usual: not at all 9. Thoughts that you would be better off or of hurting yourself in some way: not at all Total score: 0 Depression Screening Interpretation: Negative Depression Screening Done: Yes 54784 - PHQ-9 Billing: Yes Source: Developed by Drs. Estiven Cabral, Nat Ibarra, Parrish Nickerson and colleagues, with an educational haley from [employer]. Thrive Questionnaire Date Thrive assessed: 10/02/24 I am a: Patient What is your living situation today?: I have a steady place to live Within the past 12 months, did the food you bought not last and you didn't have the money to get more?: Never true Within the past 12 months, did you worry whether your food would run out before you got money to buy more?: Never true Do you have trouble paying for medicines?: No Do you have trouble getting transportation to medical appointments?: No Do you have trouble paying your heating and electricity bill?: No Do you have trouble taking care of your child, family member or friend?: No Do you have trouble with day-to-day activities such as bathing, preparing meals, shopping, managing finances, etc.?: No Are you currently unemployed and looking for a job?: No Are you interested in more education?: No Please select the resources that you would like help with: None Currently or been in a relationship where the following occur: No concerns reported THRIVE Score: 0 AUDIT C Alcohol Use Questionnaire (AUDIT-C) 1. How often do you have a drink containing alcohol?: 2-4 times a month 2. How many drinks containing alcohol do you have on a typical day when you are drinking?: 1 or 2 3. How often do you have six or more drinks on one occasion?: Never Total Score: 2 IKER-7 AMB Questionnaire IKER-7 Date IKER - 7 assessed: 10/02/24 Feeling nervous, anxious, or on edge: 0 = Not at all Not being able to stop or control worryin = Not at all Worrying too much about different things: 0 = Not at all Trouble relaxin = Not at all Being so restless that it is hard to sit still: 0 = Not at all Becoming easily annoyed or irritable: 0 = Not at all Feeling afraid as if something awful might happen: 0 = Not at all Total IKER-7 score (0-4 normal; 5-9 mild; 10-14 moderate; 15-21 severe): 0 Source: Developed by Drs. Estiven Cabral, Nat Ibarra, Parrish Nickerson and colleagues, with an educational haley from [employer]. Review of Systems Const Denies poor appetite and Denies weakness Eyes Denies no additional complaints ENT Reports Normal hearing present, Denies dizziness, Denies nasal congestion, Denies tinnitus and Denies sore throat Card Denies chest pain, Denies syncope, Denies rapid heart rate and Denies dyspnea Resp Denies cough and Denies dyspnea GI Denies change in stool character, Reports constipation, Denies diarrhea, Denies nausea and Denies vomiting Denies dysuria and Denies urinary frequency Neuro Reports Normal hearing present, Denies confusion, Denies dizziness, Denies syncope and Denies weakness Psych Denies confusion Physical exam (Primary Care) Vital Signs: Last Vital Signs Pulse 70 10/02/24 08:59 BP 136/72 10/02/24 08:59 Pulse Ox 97 10/02/24 08:59 Oxygen Delivery Method Room Air 10/02/24 08:59 BMI result Body Mass Index 28.4 Tobacco/Smoking Status: Tobacco use Status Tobacco use date assessed 10/02/24 10/02/24 09:04 Patient Tobacco Use Status Former Tobacco user 10/02/24 09:23 Tobacco use type Cigarette 10/02/24 09:23 e-Cigarette/Vaping Use Never Used 10/02/24 09:23 PHQ-9: PHQ-9 Score PHQ-9: Total score 0 10/02/24 09:36 Depression Screening Interpretation: Negative Thrive Assessment: Date of Thrive Assessment Date Thrive assessed 10/02/24 10/02/24 09:04 Currently or been in a relationship where the following occur: No concerns reported Const General: alert and awake; No confusion Orientation/consciousness: No confusion HENMT Head: Yes normocephalic Ears: external ears normal and TM's normal bilaterally Face and sinus: Yes normal facial exam Mouth: moist mucous membranes Throat: Yes tonsils normal Eyes Conjunctivae: conjunctivae normal Pupils: Equal, round and reactive pupils present and Pupil accommodation reflex normal Direct Ophthalmoscopy: normal light reflex Neck Neck: No lymphadenopathy Thyroid: Thyroid normal Chest Chest palpation & inspection: normal inspection of the chest Resp Effort & Inspection: normal respiratory effort and no audible wheezes Auscultation: clear to auscultation bilaterally, no crackles, no wheezes and lung sounds not diminished Cardio Rate: regular rate Rhythm: regular rhythm Peripheral pulses: radial pulses present and dorsalis pedis present GI Palpation (GI): no masses Auscultation: normal bowel sounds and normoactive bowel sounds Rectal Exam - Male: Yes deferred Skin General skin exam: no rashes or lesions noted Rashes: no rashes Neuro General: deep tendon reflexes 2+ bilaterally and No confusion Cranial nerves: Yes Equal, round and reactive pupils present, Yes Midline tongue present, Yes Normal hearing present and Yes Ability to bilaterally elevate shoulders present Cognition (Neuro): normal cognition Gait exam (Neuro): Normal gait present Motor exam (neuro): 5/5 motor strength present throughout Deep tendon reflexes (DTR's): Right brachioradialis reflex intensity grade: 2+, Left brachioradialis reflex intensity grade: 2+, Right patellar reflex intensity grade: 2+ and Left patellar reflex intensity grade: 2+ Extrem General: No edema Coding Level of Care Code Est Pt Prev Care >65y(77440) Diagnoses Annual physical exam Z00.00 Essential hypertension I10 Hypertension type: essential hypertension Hypercholesterolemia E78.00 Mild intermittent asthma without complication J45.20 Asthma complication type: uncomplicated Asthma persistence: intermittent Asthma severity: mild Impaired glucose tolerance R73.02 Right leg DVT I82.401 Factor 5 Leiden mutation, heterozygous D68.51 ULISSES (obstructive sleep apnea) G47.33 Additional Codes PHQ-9 - 89826 - PHQ-9 Billing: Yes ([id number]) Assessment & Plan Assessment & Plan (1) Annual physical exam: Code(s): Z00.00 - Encounter for general adult medical examination without abnormal findings Category: Medical Plan: Patient is advised to eat healthy, keep well hydrated, keep active and have adequate sleep. (2) Hypertension: Code(s): I10 - Essential (primary) hypertension Category: Medical Qualifiers: Hypertension type: essential hypertension Qualified Code(s): I10 - Essential (primary) hypertension Plan: Continue with blood pressure medication. Decrease salt intake and exercise on losartan 50 mg once a day metoprolol 150 mg once a day (3) Hypercholesterolemia: Code(s): E78.00 - Pure hypercholesterolemia, unspecified Category: Medical Plan: Avoid fried foods, chicken skin, eggs, butter margarine, pastries and meat. Be it pork or beef they have a lot of cholesterol LDL goal of less than 100 and triglyceride of less than 150 on rosuvastatin 40 mg once a day (4) Asthma: Comment: Cough may be an asthma variant, and we would need to do a complete pulmonary function test to check for that. Code(s): J45.909 - Unspecified asthma, uncomplicated Category: Medical Qualifiers: Asthma complication type: uncomplicated Asthma persistence: intermittent Asthma severity: mild Qualified Code(s): J45.20 - Mild intermittent asthma, uncomplicated Plan: Stable (5) Impaired glucose tolerance: Code(s): R73.02 - Impaired glucose tolerance (oral) Category: Medical Plan: Decrease the amount of carbohydrate intake, pasta, bread, rice and potatoes are all sugar and that is aside from all the sweet stuff, remember that fruits are good but they are Sweet also. Last blood work is normal (6) Right leg DVT: Comment: October 2021, June 2023 Code(s): I82.401 - Acute embolism and thrombosis of unspecified deep veins of right lower extremity Category: Medical Plan: Continuing with anticoagulation due to the factor 5 Leiden mutation heterozygous and anticardiolipin antibody positive (7) Factor 5 Leiden mutation, heterozygous: Comment: February 2022 Code(s): D68.51 - Activated protein C resistance Category: Medical Plan: Continue with anticoagulation (8) ULISSES (obstructive sleep apnea): Comment: He does have moderately severe obstructive sleep apnea. 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 Patient has not been able to use CPAP. I discussed with him the conservative measures are treatment including, weight reduction, always sleep in lateral position. Code(s): G47.33 - Obstructive sleep apnea (adult) (pediatric) Category: Medical Plan: Discussed about CPAP use and benefits. Plan History of Present Illness The patient is a 74-year-old male presenting for an annual physical examination and to address recent bilateral foot swelling. This issue started approximately one month ago with a sudden onset, though leg swelling has been present progressively over the past year. Both feet are involved, with the patient describing the swelling at the bottom, particularly the balls of the feet. It appears more pronounced with standing for prolonged periods but not visibly notable as significant swelling. The patient has a documented history of essential hypertension, controlled with losartan and metoprolol, and hypercholesterolemia managed with rosuvastatin, resulting in an LDL level of 74 mg/dL. Other past medical conditions include asthma, impaired glucose tolerance, gout, non-sustained ventricular tachycardia, and a history of right leg DVT with Factor V Leiden mutation and anticardiolipin antibody positivity, for which he is on anticoagulation therapy. Despite obstructive sleep apnea, the patient does not use CPAP due to intolerance. A recent echocardiogram in 2023 showed mild aortic stenosis with no concerning developments. Recent lab work including D-dimer was also within normal ranges. He has noted episodes of dyspnea that resolve quickly, and describes occasional superficial chest wall pain linked to an old rib fracture without significant recent aggravation. Health Maintenance - Blood pressure management: Losartan 50 mg once daily and Metoprolol 100 mg in the morning, 50 mg at night. - Cholesterol management: Rosuvastatin 40 mg once daily, with a target LDL cholesterol of <100 mg/dL. - COVID-19 infection history noted in February. - Recent complete blood work in September 2024 was within normal limits. - Previous colonoscopy in 2020 with no further recommendation. - Regular eye exams for hypertensive retinopathy. - Pneumococcal vaccine administered. - Shingles and tetanus vaccinations up to date. Social History - Alcohol use: Consumes one beer once or twice a week during meals out. - Smoking: Former smoker, not currently using tobacco. - Recreational drugs: Denied use. - Functional status: Patient is active, engages in regular movements. - Reports dietary modification: Cut out soda consumption. Review of Systems - Cardiovascular: Reports occasional shortness of breath associated with activity, denies acute chest pain. - Gastrointestinal: Denies bloating, nausea, vomiting, or heartburn. - Genitourinary: Reports slower urinary stream and nocturia occurring twice per night. - Musculoskeletal: Describes bilateral feet swelling. - Neurological: Denies dizziness or loss of consciousness. - Respiratory: Intermittent shortness of breath, resolves quickly. Physical Exam General: Cooperative, healthy appearing, comfortable, no acute distress and well developed Orientation: Patient oriented x3 Limitations: No limitations Head: Normal to inspection Ears: Hearing grossly normal bilaterally, some ear wax present but open Nose: Normal external nose present Face and sinus: Normal facial exam Eyes: Appearance normal, both eyes and all related structures Neck: Normal visual inspection and Yes full ROM Respiratory: Normal respiratory effort and able to speak in complete sentences. Clear to auscultation bilaterally Cardiovascular: Regular rate and rhythm. Normal S1 and S2 GI: Normal to inspection. Soft to palpation and nontender, slight pain noted in the stomach area Skin: No rashes or lesions noted Neuro: Patient oriented x3 Extremities: Swelling noted in both feet and legs, pulses are fine Results - Labs: Recent complete blood count and metabolic panel from September 2024 were within normal limits; D-dimer was 254. - Echocardiogram: Previous echocardiogram in 2023 indicated mild aortic stenosis. Plan The current treatment regimen for essential hypertension and hypercholesterolemia will continue, maintaining control with medications including losartan, metoprolol, and rosuvastatin. Anticoagulation will persist due to a history of deep vein thrombosis and underlying risk factors. The patient's mild aortic stenosis does not warrant immediate action, but a follow-up echocardiogram will be performed in October to monitor progression. Recommendations for managing bilateral foot swelling focus on lifestyle adjustments such as the elevation of legs, use of support stockings, and promoting regular activity. A concise discussion regarding CPAP intolerance was held, as well as encouragement toward a heart-healthy diet and adequate hydration. Follow-up with cardiology is confirmed to assess further the status of aortic stenosis. No additional interventions or diagnostics were introduced at this time, aside from ongoing monitoring of current health status. Patient was informed and verbally consented to the use of an ambient scribe for clinic note documentation during this visit. Discussion Notes During the visit, I reviewed the patient?s current chronic conditions and their management. For hypertension and hypercholesterolemia, we confirmed that blood pressure and lipid levels were well-controlled with the current medication regimen. We discussed the importance of continuing anticoagulation to manage the Factor V Leiden mutation risks. We addressed the patient?s report of bilateral foot swelling, explaining potential causes, and encouraged lifestyle modifications including leg elevation and the use of compression stockings. Although the patient reports intermittent dyspnea, it resolves quickly and is not deemed urgent. The next cardiology evaluation to reassess aortic stenosis will include another echocardiogram in October. We addressed CPAP intolerance in sleep apnea management and reiterated the importance of adherence to current therapies and a healthy lifestyle. Follow-up plans were discussed, ensuring ongoing monitoring of conditions with appropriate specialists as needed. Patient Instructions - Continue taking losartan and metoprolol as prescribed for blood pressure management. - Maintain cholesterol medication regimen with rosuvastatin as discussed. - Use support stockings and elevate legs when sitting to help manage foot swelling. - Monitor for any significant changes in symptoms such as increased breathlessness or new areas of swelling. - Follow a heart-healthy diet and drink plenty of water daily. - Avoid heavy lifting and regularly move to help circulation. - Attend the planned cardiology follow-up in November for an echocardiogram and further evaluation of heart health. - Ensure routine vaccinations are up-to-date and maintain regular health appointments. Medications: New sildenafil (Viagra) administer 30 minutes to 4 hours before activity 100 mg PO DAILY PRN 14 tabs 3RF Sexual Activity Refilled hydrocodone-acetaminophen 5-325 mg 1 tab PO QID PRN 30 tabs 0RF pain M51.26 - Other intervertebral disc displacement, lumbar region
--- OUTSIDE RECORDS SUMMARY | 2024-10-02 09:25 | XMS_ITS | Clinical Summary ---
Author Organization [facility] Address [address] [place] [address] Care Team Providers Care Handhole Machine Operator Name Role Phone Veronica Malone Primary Care Provider [phone] Medications lidocaine (LIDODERM) 5% patch Apply 1 [...] complete this [place] [id number] [facility] Advance Directives Healthcare Agents on File Name Relationship Healthcare Agent Relationshi p Communication Citlaly Beasley Spouse Health Care Agent Danny Gale Son Alternate Health Care Agent Care Teams Handhole Machine Operator Relationship Specialty Start Date End Date Veronica Malone [address] [place] [address] [place] [address] PCP - General Internal Medicine 05/08/23
--- OUTSIDE RECORDS SUMMARY | 2024-10-02 09:25 | XMS_ITS | Referral Summary ---
Author Organization [facility] Address [address] [place] [address] Care Team Providers Care Chain Saw Driver Name Role Phone Veronica Malone Primary Care Provider [phone] Medications lidocaine (LIDODERM) 5% patch Apply 1 [...] Plan of Treatment Not on file Insurance [facility] Advance Directives Healthcare Agents on File Name Relationship Healthcare Agent [facility] Communication Citlaly Ruffmyah Spouse Health Care Agent Danny Gale Son Alternate Health Care Agent Care Teams Chain Saw Driver Relationship Specialty Start Date End Date Veronica Malone [address] [place] [address] [place] [address] PCP - General Internal Medicine 05/08/23
--- OUTSIDE RECORDS SUMMARY | 2024-10-02 09:25 | XMS_ITS | Patient Health Record ---
Author Organization [facility] Address [address] [place] [address] Care Team Providers Care Speedometer Mechanic Name Role Phone Po Veronica WIGGINS Primary Care Provider Estiven Alejo Unavailable [phone] Allergies No Known Allergies Reason For Referral [...] Problem Status W/U Status Risk Notes Problem [id number] Encounter for screening for malignant neoplasm of colon (Z12.11) Active confirmed Problem [id number] Change in bowel habits (R19.4) Active confirmed Problem Diverticulosis of colon (447105143) Diverticulosis of colon (K57.30) Active confirmed Plan Of Treatment Future Test Test Name Order Date COLONOSCOPY 05/11/2021 Insurance Providers Payer Name Payer Address Payer Phone Subscriber Number Group Number Insured Name Patient Relationship to Insured Coverage Start Date Coverage End Date [facility] [address] [place] [phone] [id number] PAO BUENROSTRO Self - patient is the insured Medical (General) History Medical History History ICD Code NSVT- Non sustained ventricu lar tachycardia - 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
== END 2024-10-02 09:49 | disposition home or self-care (01) ==
LOC: HO.HMCH 08:54
PROVIDERS: PCP Internal Medicine; Visit Provider Internal Medicine
DX: Z00.00 Encounter for general adult medical examination without abnormal findings (principal); I82.401 Acute embolism and thrombosis of unspecified deep veins of right lower extremity; D68.51 Activated protein C resistance; I10 Essential (primary) hypertension; E78.00 Pure hypercholesterolemia, unspecified; J45.20 Mild intermittent asthma, uncomplicated; R73.02 Impaired glucose tolerance (oral); G47.33 Obstructive sleep apnea (adult) (pediatric)

== ENCOUNTER → 2024-10-02 08:53 | Outpatient (BNVA) | payer MEDICARE, SELFPAY | PROVIDERS: PCP Internal Medicine; Visit Provider Internal Medicine | DX: Z00.00 Encounter for general adult medical examination without abnormal findings (principal); I10 Essential (primary) hypertension; E78.00 Pure hypercholesterolemia, unspecified; J45.20 Mild intermittent asthma, uncomplicated; R73.02 Impaired glucose tolerance (oral); I82.401 Acute embolism and thrombosis of unspecified deep veins of right lower extremity; D68.51 Activated protein C resistance; G47.33 Obstructive sleep apnea (adult) (pediatric) | CPT/HCPCS: 96127; 99397 ==

== ENCOUNTER → 2024-11-25 08:52 | Outpatient (REF) | payer MEDICARE, SELFPAY ==
--- NOTE | 2024-11-25 08:55 | CA_ITS ---
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 The calculated ejection fraction is 59% by biplane method. - There is moderate calcification of the aortic valve. There is moderate aortic valve stenosis. Findings Procedure Information Contrast agent, definity, is being given per protocol without apparent complications. Left Ventricle Normal left ventricular cavity size. There is normal left ventricular wall thickness. The left ventricular systolic function is normal. The calculated ejection fraction is 59% by biplane method. There is no evidence of regional wall motion abnormalities. Evidence suggests grade I (mild) diastolic dysfunction. There is mild septal asymmetric hypertrophy. Right Ventricle Mildly increased right ventricular cavity size. There is normal right ventricular systolic function. Atria Both atria are normal in size. Aortic Valve There is moderate calcification of the aortic valve. There is moderate aortic valve stenosis. The peak aortic velocity is 3.04 m/s with a calculated peak gradient of 37 mmHg. The mean gradient is 22 mmHg. The aortic valve area is 1.18 cm2. There is no aortic valve regurgitation. Mitral Valve The mitral valve appears normal. There is trace mitral valve regurgitation. There is no mitral valve stenosis. Pulmonic Valve The pulmonic valve is likely normal. Tricuspid Valve There is trace tricuspid valve regurgitation. There is no evidence of pulmonary hypertension. Great Vessels The asc aorta and aortic arch are normal in size. Venous The inferior vena cava is normal in size and collapses less than 50% with inspiration. Pericardium/Pleural There is no evidence of pericardial effusion. Prior Study Comparison Changes noted compared to prior study dated: 10/02/2023. Progression of aortic stenosis. Measurements 2D Linear Measurements IVSd: 1.24 0.6-0.9/0.6-1.0 cm LVIDd: 4.45 3.9-5.3/4.2-5.9 cm LVIDd Index: 1.97 2.4-3.2/2.2-3.1 cm/m2 LVIDs: 2.64 2.0-3.6 cm LVPWd: 0.94 0.7-1.1 cm LA Diam: 3.00 2.7-3.8/3.0-4.0 cm LAIDs Index: 1.33 1.5-2.3 cm/m2 LV Mass: 210.76 67-162/88-224 g LV Mass Index: 93.26 43-95/49-115 g/m2 LVOT Diam: 2.50 3.0+(-)1.3 cm 2D Systolic Function EF 4C: 57.40 >55% EF 2C: 61.60 >55% EF BiP: 59.40 >55% Mitral Valve MV Pk E: 0.77 MV PK A: 1.04 MV Decel Time: 260.00 E/A: 0.70 E'Lateral: 6.42 E'Medial: 4.57 E/E' Med: 16.90 E/E' Lat: 12.00 PHT: 76.00 MVA PHT: 2.89 Decel Barnwell: 2.96 Aortic Valve AoV Pk Angel: 3.04 AoV Mn Angel: 2.25 AoV VTI: 0.81 AoV Pk Grad: 37.00 Aov Mn Grad: 22.00 BART Cont.VTI: 1.18 LVOT LVOT Pk Angel: 0.72 LVOT Mn Angel: 0.50 LVOT VTI: 0.19 LVOT Pk Grad: 2.00 LVOT Mn Grad: 1.00 LVOT Diam: 2.50 LVOT Area: 4.91 Diastolic Function MV Pk E: 0.77 MV Pk A: 1.04 E/A: 0.70 E'Medial: 4.57 E/E' Med: 16.90 E' Laterial: 6.42 E/E' Lat: 12.00 Right Ventricle TAPSE (mm): 25.30 TVS' Angel: 11.10 Tricuspid Valve TR Pk Angel: 2.47 TR Pk Grad: 24.00 RA Press: 8.00 RVSP: 32.00 Great Vessels Aorta Sinus of Valsalva: 3.62 2.0-3.[address] Ridge: 2.69 1.7-3.4 cm Ao Asc: 3.70 2.1-3.4 cm Ao Arch: 2.50 Updated in Other Vendor System with Status of Final Tre Mcdonald MD electronically signed on 11/26/2024 1:58:05 PM with status of Final
--- OUTSIDE RECORDS SUMMARY | 2024-11-25 09:30 | XMS_ITS | Patient Health Record ---
Author Organization [facility] Address [address] [place] [address] Care Team Providers Care Scientist Immunology Name Role Phone Po Veronica WIGGINS Primary Care Provider Estiven Alejo Unavailable [phone] Allergies No Known Allergies Reason For Referral [...] Problem Status W/U Status Risk Notes Problem [id number] Encounter for screening for malignant neoplasm of colon (Z12.11) Active confirmed Problem 861786757 Change in bowel habits (R19.4) Active confirmed Problem Diverticulosis of colon (040337518) Diverticulosis of colon (K57.30) Active confirmed Plan Of Treatment Future Test Test Name Order Date COLONOSCOPY 05/11/2021 Insurance Providers Payer Name Payer Address Payer Phone Subscriber Number Group Number Insured Name Patient Relationship to Insured Coverage Start Date Coverage End Date [facility] [address] [place] [phone] [id number] PAO BUENROSTRO Self - patient is the insured Medical (General) History Medical History History ICD Code NSVT- Non sustained ventricu lar tachycardia - 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
== END ==
LOC: HO.CARD 08:52
PROVIDERS: PCP Internal Medicine; Visit Provider Internal Medicine Cardiovascular Disease
DX: I35.0 Nonrheumatic aortic (valve) stenosis (principal); I72.8 Aneurysm of other specified arteries
CPT/HCPCS: 93306; Q9957

== ENCOUNTER → 2024-11-25 08:55 | Outpatient (BNV) | payer MEDICARE, SELFPAY | PROVIDERS: PCP Internal Medicine; Visit Provider Internal Medicine | DX: I70.0 Atherosclerosis of aorta (principal); I35.0 Nonrheumatic aortic (valve) stenosis | CPT/HCPCS: 93306 ==

== ENCOUNTER 2024-12-01 13:45 | Outpatient (AMB) | payer MEDICARE, SELFPAY ==
[2024-12-01 14:05] VITALS: BP 120/74; PULSE 73; BMI 28.3
--- NOTE | 2024-12-01 14:05 | A.OFFVIS_ITS ---
Vital Signs 12/01/24 14:05 Height 6 ft 2 in Weight 220 lb 7.396 oz BMI 28.3 BP 120/74 Blood Pressure Location Lt brachial Position Sitting Pulse 73 Intake Visit Reasons: 1 yr f/up Intake Note: 1 year follow-up with ekg feeling good had 3-5 seconds of heart racing last week Computer Aided Design Operator Required: No Allergies lisinopril Allergy (Unknown, Verified 10/02/24 09:00) Unknown Medication List - Last Reconciled 12/01/24 by Kavin Mcintosh MD apixaban (Eliquis) 5 mg PO BID 90 days cholecalciferol (vitamin D3) 25 mcg PO DAILY hydrocodone-acetaminophen 5-325 mg 1 tab PO QID PRN losartan 50 mg PO DAILY metoprolol succinate ER 100 mg PO QAM metoprolol succinate ER 50 mg PO QPM rosuvastatin (Crestor) 40 mg PO DAILY sildenafil (Viagra) 100 mg PO DAILY PRN HPI Comments Details: Ronnie comes for follow-up. His recent echocardiogram shows moderate aortic stenosis. Denies any exertional chest pain, shortness of breath, lightheadedness. He had last week brief episodes of lightheadedness that lasted 3 to 5 seconds. He could not obtain a EKG within that time period. He has not had any significant arrhythmias otherwise. He said when he takes caffeine he notices heart rate to race and have dizziness. Since stopping caffeine in his symptoms have improved. No orthopnea, PND, leg edema. No syncopal episodes. [facility] Medical History Right leg DVT ULISSES (obstructive sleep apnea) Allergic rhinitis PVCs (premature ventricular contractions) Nonsustained ventricular tachycardia Cough Obstructive sleep apnea Traumatic tear of supraspinatus tendon of right shoulder Hemorrhoids Impaired glucose tolerance Supraventricular tachycardia Asthma Hypercholesterolemia Lumbar herniated disc Hypertension Surgical History History of cataract surgery History of tonsillectomy History of arthroscopy of left knee Total knee replacement status Family History Father Renal cell cancer Mother Gastric cancer Diabetes Hypertension Breast cancer Social History Household Members: Spouse Housing: House Are you a primary college and career counselor to a significant other at home: No Do you presently have visiting nurse or other home services: No Alcohol intake: current Alcohol intake frequency: holidays/special occasions only Comment: 2x a week 1 beer Patient Tobacco Use Status: Former Tobacco user Tobacco use type: Cigarette Years Smoked: 1969 e-Cigarette/Vaping Use: Never Used Second Hand Smoke Exposure: No service: Yes Current occupational status: employed and retired Current occupational exposures/hazards: No Cognitive needs: No Hearing needs: No Vision needs: Yes (glasses) Review of Systems Const Denies chills, Denies fatigue, Denies fever(s), Denies frequent falls, Denies weakness, Denies weight gain and Denies weight loss ENT Denies dizziness Card Denies chest pain, Denies leg edema, Denies lightheadedness, Denies palpitations, Denies dyspnea, Denies dyspnea on exertion, Denies orthopnea and Denies other (loss of consciousness) Resp Denies cough, Denies dyspnea and Denies dyspnea on exertion GI Denies hematochezia and Denies change in stool character Musc Denies abnormal gait, Denies muscle weakness, Denies numbness, Denies radiating pain into limb and Denies tingling Neuro Denies abnormal gait, Denies dizziness, Denies frequent falls, Denies numbness, Denies tingling and Denies weakness Endo Denies fatigue and Denies palpitations Physical Exam Vital Signs: Last Vital Signs Pulse 73 12/01/24 14:05 BP 120/74 12/01/24 14:05 BMI result Body Mass Index 28.3 Const General: cooperative, healthy appearing, comfortable and no acute distress Orientation/consciousness: patient oriented x3 Resp Effort & Inspection: normal respiratory effort Auscultation: clear to auscultation bilaterally, no crackles, no rales, no rhonchi and no wheezes Cardio Jugular venous distension: no JVD Rate: regular rate Rhythm: regular rhythm Heart sounds: S1 normal heart sound present, S2 normal heart sound present, Murmur heart sound present systolic early, decrescendo and crescendo and no rubs Neuro General: patient oriented x3 Extrem Other: Minimal swelling above sock on right lower leg General: Yes normal to inspection Psych Appearance: grossly normal Mental Status: mental status grossly normal Speech and movement: Normal speech and movement present Office Procedures EKG Details: EKG shows normal sinus rhythm normal EKGs showed [id number], Complete Assessment & Plan Assessment & Plan (1) Aortic stenosis: Comment: Mild 2023 Code(s): I35.0 - Nonrheumatic aortic (valve) stenosis Category: Medical Plan: Aortic stenosis which is moderate. We discussed about pathophysiology of aortic stenosis and gradually progressive nature of aortic stenosis. Cardinal symptoms associated with severe aortic stenosis were discussed. Continue aggressive risk factor modification. Currently on full oral anticoagulation with Eliquis. Avoid aspirin therapy, will discuss with him. If his oral anticoagulation therapy was discontinued I would start him on aspirin therapy. Continue high- intensity statin therapy. Continue aggressive blood pressure control which is currently well optimized. Follow-up echocardiogram next year. (2) Nonsustained ventricular tachycardia: Code(s): I47.2 - Ventricular tachycardia Category: Medical Plan: Nonsustained ventricular tachycardia which is pretty much minimally symptomatic at this point time. Currently high dose metoprolol therapy. He has stopped taking caffeine in his symptoms have significantly improved. We discussed about avoidance of stimulants. He understands and agrees. Follow up in the clinic in 1 year's time, sooner p.r.n.. Thank you for allowing me to partake in his care Orders: Orders CA echo transthoracic complete 1 Year I35.0 - Nonrheumatic aortic (valve) stenosis Coding Level of Care Code Est Pt Level 4 (14217) Complex EM visit Add On G2211 Diagnoses Aortic stenosis I35.0 Nonsustained ventricular tachycardia I47.2 CPT Codes EKG - CPT: 81117-[id number], Complete ([id number])
--- OUTSIDE RECORDS SUMMARY | 2024-12-01 15:36 | XMS_ITS | Patient Health Record ---
Author Organization [facility] Address [address] [place] [address] Care Team Providers Care [facility] Attendant Name Role Phone Po Veronica WIGGINS Primary Care Provider Estiven Alejo Unavailable [phone] Allergies No Known Allergies Reason For Referral [...] Problem Status W/U Status Risk Notes Problem [id number] Encounter for screening for malignant neoplasm of colon (Z12.11) Active confirmed Problem 804726687 Change in bowel habits (R19.4) Active confirmed Problem Diverticulosis of colon (399590755) Diverticulosis of colon (K57.30) Active confirmed Plan Of Treatment Future Test Test Name Order Date COLONOSCOPY 05/11/2021 Insurance Providers Payer Name Payer Address Payer Phone Subscriber Number Group Number Insured Name Patient Relationship to Insured Coverage Start Date Coverage End Date [facility] [address] [place] [phone] [id number] PAO BUENROSTRO Self - patient is the insured Medical (General) History Medical History History ICD Code NSVT- Non sustained ventricu lar tachycardia - 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
== END 2024-12-01 14:17 | disposition home or self-care (01) ==
LOC: HO.HCS 13:47
PROVIDERS: PCP Internal Medicine; Visit Provider Internal Medicine Cardiovascular Disease
DX: I35.0 Nonrheumatic aortic (valve) stenosis (principal); I47.20 Ventricular tachycardia, unspecified
CPT/HCPCS: 93010; 99214; G2211

== ENCOUNTER → 2024-12-01 13:45 | Outpatient (BNVA) | payer MEDICARE, SELFPAY | PROVIDERS: PCP Internal Medicine; Visit Provider Internal Medicine Cardiovascular Disease | DX: I35.0 Nonrheumatic aortic (valve) stenosis (principal); I47.20 Ventricular tachycardia, unspecified | CPT/HCPCS: 93005; 99212 ==

== ENCOUNTER → 2025-03-24 11:17 | Outpatient (REF) | payer MEDICARE, SELFPAY ==
--- NOTE | 2025-03-24 11:19 | HM_ITS ---
Conclusion: 1. Patient was monitored for total period of 13 days and 10 hours 2. Baseline was normal sinus rhythm with average heart rate of 69 beats per minute 3. Occasional PACs noted with total burden of 0.16% with short runs of SVE, consistent with SVT, longest lasting 11 beats 4. Frequent PVCs noted with total burden of 2.9% with 3 3 beat salvos of nonsustained VT at 175 beats per minute 5. Patient marked 1 counter with symptoms of shortness of breath correlated with ventricular bigeminy MTDD
--- OUTSIDE RECORDS SUMMARY | 2025-03-24 12:45 | XMS_ITS | Clinical Summary ---
Author Organization [facility] Address [address] [place] [address] Care Team Providers Care Admitting Manager Name Role Phone Veronica Malone Primary Care Provider [phone] Medications lidocaine (LIDODERM) 5% patch Apply 1 [...] 67 05/08/2023 5:32 PM EST Temperature 37 C (98.6 F) 05/08/2023 4:49 PM EST Respiratory Rate 13 05/08/2023 5:32 PM EST Oxygen Saturation 97% 05/08/2023 5:32 PM EST Inhaled Oxygen Concentration - - Weight - - Height - - Body Mass Index - - Plan of Treatment Health Maintenance Due Date Last Done Comments Hepatitis C Screening 1950 Pneumococcal Vaccine: 50+ Years (2 of 2 - PCV20 or PCV21) 06/29/2017 06/29/2016 RSV Vaccine (60+ years old and patients) (1 - 1-dose 75+ series) 2023 Alcohol/Substance Use Screening 06/25/2024 Depression Screening and Follow-Up 06/25/2024 Health Care Proxy Review 06/25/2024 Social Drivers of Health Annual Screening 06/25/2024 COVID-19 Vaccine (2 - 2024-2 6 season) 2025 04/15/2021 Influenza Vaccine (#1) 2025 , 04/15/2021, 02/18/2020 DTaP,Tdap,and Td Vaccines (2 - Td or Tdap) 05/23/2028 05/23/2018, 03/16/2017 Zoster Vaccines Completed 01/03/2021, 07/04/2020 Hepatitis B Vaccines Aged Out No long er eligible based on patient's age to complete this [place] [address] [facility] Advance Directives Healthcare Agents on File Name Relationship [facility] Citlaly Beasley Spouse Health Care Agent Danny Gale Son Alternate Health Care Agent Care Teams Admitting Manager Relationship Specialty Start Date End Date Veronica Malone [address] [place] [address] [place] [address] PCP - General Internal Medicine 05/08/23
--- OUTSIDE RECORDS SUMMARY | 2025-03-24 12:45 | XMS_ITS | Clinical Summary ---
Author Organization [facility] Address [address] [place] [id number] Phone Care Team Providers Care Loss Prevention Supervisor Name Role Phone Veronica Malone MD Primary Care Provider [phone] Allergies No known active allergies Medications fexofenadine (CAIO) 180 MG tablet Take 180 mg by mouth daily. Active aspirin 81 mg chewable tablet Take 81 mg by mouth daily. Active losartan (COZAAR) 25 MG tablet Take 25 mg by mouth daily. Active metoprolol succinate (TOPROL-XL) 100 MG 24 hr tablet Take 100 mg by mouth daily. Uses 1.5 tabs once a day for a total of 150mg QD Active rosuvastatin (CRESTOR) 40 MG tablet Take 40 mg by mouth daily. Active cholecalciferol , vitamin D3, (VITAMIN D3) 25 mcg (1,000 unit) capsule Take 2,000 Units by mouth daily. Active HYDROcodone-harjit taminophen (NORCO) 5-325 mg per tablet Take 1 tablet by mouth daily as needed for pain (specific location in comments). Active indomethacin (INDOCIN) 50 MG capsule Take 50 mg by mouth 2 (two) times a day as needed. Active tiZANidine (ZANAFLEX) 4 MG capsule Take 4 mg by mouth 3 (three) times a day as needed. Active naproxen (EC NAPROSYN) 500 MG EC tablet Take 500 mg by mouth 2 (two) times a day as needed. Active sildenafiL (VIAGRA) 100 mg tablet Take 100 mg by mouth daily as needed for erectile dysfunction. Active amoxicillin (AMOXIL) 500 MG capsule Take 2,000 mg by mouth daily as needed. PRN dental appts Active Immunizations Immunization Administration Dates Next Due COVID-19 (Pre-04/16) Pfizer Vaccine, mRNA, PF 04/15/2021 Influenza High-Dose Quadriva lent Preservative Free IM 02/18/2020 Influenza High-Dose Trivalen t Preservative Free IM 05/23/2018,03/20/2016,06/03/2015 Influenza Quadrivalent Adjuv anted Preservative Free IM 04/15/2021 Influenza Trivalent Adjuvant ed Preservative free IM 02/01/2017 Pneumococcal conjugate PCV13 06/29/2016 Td (adult) 5 Lf Tetanus Toxo id, PF, Adsorbed 03/16/2017 Tdap 05/23/2018 Zoster recombinant 01/03/2021,07/04/2020 Social History Tobacco Use Types Packs/Day Years Used Date Smoking Tobacco: Former Smokeless Tobacco: Never Alcohol Use Standard Drinks/Week Comments Yes 0 (1 standard drink = 0.6 oz pur e alcohol) very occasional Education Answer Date Recorded Are you interested in more education? Not on karie e 10/19/2022 Are you concerned about learning? Not on file 10/19/2022 No 10/19/2022 No 10/19/2022 Digital Access Answer Date Recorded No 11/20/2022 No 11/20/2022 No 11/20/2022 Reliable internet access at home? Not on file 11/20/2022 Device with a working camera? Not on file Sex and Gender Information Value Date Recorded Sex Assigned at Male 05/06/2019 12:44 PM EST Legal Sex Male 8:00 PM EST Gender Identity Male 05/06/2019 12:44 PM EST Sexual Orientation Choose not to disclose 2018 12:44 PM EST Last Filed Vital Signs Vital Sign Reading Time Taken Comments Blood Pressure 118/80 04/23/2021 2:59 PM EDT Pulse 103 04/23/2021 2:59 PM EDT Temperature 37.9 C (100.2 F) 04/23/2021 2:59 PM EDT Respiratory Rate 20 04/23/2021 2:59 PM EDT Oxygen Saturation 95% 04/23/2021 2:59 PM EDT Inhaled Oxygen Concentration - - Weight 95.3 kg (210 lb) 04/23/2021 2:59 PM EDT Height 188 cm (6' 2 ) 04/23/2021 2:59 PM EDT Body Mass Index 26.96 04/23/2021 2:59 PM EDT Plan of Treatment Health Maintenance Due Date Last Done Comments LIPID PANEL 1950 DEPRESSION SCREENING 1960 SMOKING Hx and SMOKELESS TOBACCO SCREENING 1961 HEPATITIS C SCREENING 1966 CREATININE LEVEL 04/24/2022 04/24/2021, 05/06/2019 POTASSIUM LEVEL 04/24/2022 04/24/2021, 05/06/2019 RSV VACCINE (1 - 1-dose 75+ series) 2023 INFLUENZA VACCINE (#1) 2025 , 02/18/2020, 05/23/2018, Additional history exists COVID-19 VACCINE ( season) 2025 04/15/2021, 09/10/2020, 08/20/2020 Adult Td,Tdap Booster 05/23/2028 05/23/2018, 017 PNEUMOCOCCAL VACCINES (50+ years) Completed 05/23/2018, 06/29/2016 ZOSTER VACCINES Completed 01/03/2021, 07/04/2020 HEPATITIS A VACCINES Aged Out No long er eligible based on patient's age to complete this topic HIB VACCINES Aged Out No longer eligi ble based on patient's age to complete this topic MENINGOCOCCAL VACCINES (ACWY) Aged Out No longer eligible based on patient's age to complete this topic MENINGOCOCCAL VACCINES (B) Aged Out N o longer eligible based on patient's age to complete this topic Medical Devices Not on file Procedures Procedure Name Priority Date/Time Associated Diagnosis Comments COMPREHENSIVE METABOLIC PANEL Routine 04/24/2021 1:28 PM EDT Fever, unspecified from Last 3 Months or Most Recently Relevant to Health Maintenance Results * (ABNORMAL) Comprehensive metabolic panel (04/24/2021 1:28 PM EDT) SODIUM 133 133 - 146 mmol/L [facility] POTASSIUM 4.7 3.3 - 5.1 mmol/L [facility] CHLORIDE 97 96 - 108 mmol/L [facility] CO2 27 21 - 35 mmol/L [facility] BUN 17 6 - 19 mg/dL [facility] CREATININE 1.10 0.5 - 1.5 mg/dL [facility] GLUCOSE 136(H) 70 - 99 mg/dL [facility] ALBUMIN 3.6(L) 3.9 - 4.8 g/dL [facility] TOTAL PROTEIN 7.4 6.5 - 8.0 g/dL [facility] CALCIUM 9.2 8.4 - 10.3 mg/dL [facility] ALKALINE PHOSPHATASE 159(H) 39 - 117 U/L [facility] TOTAL BILIRUBIN 0.6 0.0 - 1.2 mg/dL [facility] AST 57(H) 0 - 37 U/L [facility] ALT 98(H) 0 - 40 U/L [facility] GLOBULIN 3.8 1 - 4.8 g/dL [facility] EGFR 66 >59 mL/min/1.7 3m2 [facility] Comment:Estimated glomerular filtration rate calculated using the CKD-EPI equation. ANION GAP 14 10 - 20 mmol/L [facility] Blood 04/24/2021 1:28 PM EDT 04/24/2021 5:48 PM EDT Kristin Bragg MANAGER [employer] BLOOD ORDERABLES Final Result [facility] [address] [place], [place] [id number] from Last 3 Months or Most Recently Relevant to Health Maintenance Insurance [employer] Care Teams Loss Prevention Supervisor Relationship Specialty Start Date End Date Veronica Malone MD [address] [place] [id number] PCP - General Internal Medicine 05/06/19 Additional Source Comments The information contained in this document represents components of the legal health record. It is not the complete legal health record.[facility]
--- OUTSIDE RECORDS SUMMARY | 2025-03-24 12:45 | XMS_ITS | Patient Health Record ---
Author Organization [facility] Address [address] [place] [address] Care Team Providers Care Custom Dressmaker Name Role Phone Po Veronica WIGGINS Primary Care Provider Estiven Alejo Unavailable [phone] Allergies No Known Allergies Reason For Referral [...] Problem Status W/U Status Risk Notes Problem [id number] Encounter for screening for malignant neoplasm of colon (Z12.11) Active confirmed Problem 215247114 Change in bowel habits (R19.4) Active confirmed Problem Diverticulosis of colon (265279486) Diverticulosis of colon (K57.30) Active confirmed Plan Of Treatment Future Test Test Name Order Date COLONOSCOPY 05/11/2021 Insurance Providers Payer Name Payer Address Payer Phone Subscriber Number Group Number Insured Name Patient Relationship to Insured Coverage Start Date Coverage End Date [facility] [address] [place] [phone] [id number] PAO BUENROSTRO Self - patient is the insured Medical (General) History Medical History History ICD Code NSVT- Non sustained ventricu lar tachycardia - 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
== END ==
LOC: HO.CARD 11:17
PROVIDERS: PCP Internal Medicine; Visit Provider Internal Medicine Cardiovascular Disease
DX: I49.8 Other specified cardiac arrhythmias (principal)
CPT/HCPCS: 93246

== ENCOUNTER → 2025-03-24 11:19 | Outpatient (BNV) | payer MEDICARE, SELFPAY | PROVIDERS: PCP Internal Medicine; Visit Provider Internal Medicine Cardiovascular Disease | DX: I49.1 Atrial premature depolarization (principal); I49.3 Ventricular premature depolarization | CPT/HCPCS: 93248 ==

== ENCOUNTER 2025-04-01 13:59 | Outpatient (AMB) | payer MEDICARE, SELFPAY ==
[2025-04-01 14:03] VITALS: BP 118/72; PULSE 80; TEMP 36.2; O2SAT 94; BMI 29.0
--- NOTE | 2025-04-01 14:03 | MHC.PC.OV ---
Vital Signs 04/01/25 14:03 Height 6 ft 2 in Weight 226 lb 4 oz BMI 29.0 BP 118/72 Blood Pressure Location Lt brachial Position Sitting Pulse 80 Pulse Source Pulse Oximeter Temp 97.1 F Temp Source Temporal Artery Scan Pulse Oximetry (%) 94 Oxygen Delivery Method Room Air Intake Visit Reasons: Hypertension Allergies lisinopril Allergy (Unknown, Verified 04/01/25 14:08) Unknown Tobacco use date assessed: 04/01/25 Fall risk assessment: No Falls in past year Last assessed Fall Risk: 04/01/25 Dental Screening Dental Screen Date: 04/01/25 Did you have a dental visit in the last 12 months?: No Did you have a dental problem in the last 6 months where you did not have access to dental care?: No Was dental information given to patient?: Patient has dentist [facility] Medical History (Updated 04/01/25 @ 14:42 by Veronica Malone MD) Right leg DVT ULISSES (obstructive sleep apnea) Allergic rhinitis PVCs (premature ventricular contractions) Nonsustained ventricular tachycardia Cough Obstructive sleep apnea Traumatic tear of supraspinatus tendon of right shoulder Hemorrhoids Impaired glucose tolerance Supraventricular tachycardia Asthma Hypercholesterolemia Lumbar herniated disc Hypertension Surgical History History of cataract surgery History of tonsillectomy History of arthroscopy of left knee Total knee replacement status Family History Father Renal cell cancer Mother Gastric cancer Diabetes Hypertension Breast cancer Social History Household Members: Spouse Housing: House Are you a primary anesthesiologist and critical care to a significant other at home: No Do you presently have visiting nurse or other home services: No Alcohol intake: current Alcohol intake frequency: holidays/special occasions only Comment: 2x a week 1 beer Patient Tobacco Use Status: Former Tobacco user Tobacco use type: Cigarette Years Smoked: 1970 e-Cigarette/Vaping Use: Never Used Second Hand Smoke Exposure: No service: Yes Current occupational status: employed and retired Current occupational exposures/hazards: No Cognitive needs: No Hearing needs: No Vision needs: Yes (glasses) Questionnaire PHQ-9 Over the last 2 weeks, how often have you been bothered by any of the following problems? 1. Little interest or pleasure in doing things: not at all 2. Feeling down, depressed, or hopeless: not at all 3. Trouble falling or staying asleep, or sleeping too much: not at all 4. Feeling tired or having little energy: not at all 5. Poor appetite or overeating: not at all 6. Feeling bad about yourself - or that you are a failure or have let yourself or your family down: not at all 7. Trouble concentrating on things, such as reading the newspaper or watching television: not at all 8. Moving or speaking so slowly that other people could have noticed. Or the opposite - being so fidgety or restless that you have been moving around a lot more than usual: not at all 9. Thoughts that you would be better off or of hurting yourself in some way: not at all Total score: 0 Depression Screening Interpretation: Negative Depression Screening Done: Yes Source: Developed by Drs. Estiven Cabral, Nat Ibarra, Parrish Nickerson and colleagues, with an educational haley from [employer]. Thrive Questionnaire Date Thrive assessed: 09/25/24 I am a: Patient What is your living situation today?: I have a steady place to live Within the past 12 months, did the food you bought not last and you didn't have the money to get more?: Never true Within the past 12 months, did you worry whether your food would run out before you got money to buy more?: Never true Do you have trouble paying for medicines?: No Do you have trouble getting transportation to medical appointments?: No Do you have trouble paying your heating and electricity bill?: No Do you have trouble taking care of your child, family member or friend?: No Do you have trouble with day-to-day activities such as bathing, preparing meals, shopping, managing finances, etc.?: No Are you currently unemployed and looking for a job?: No Are you interested in more education?: No Please select the resources that you would like help with: None Currently or been in a relationship where the following occur: No concerns reported THRIVE Score: 0 AUDIT C Alcohol Use Questionnaire (AUDIT-C) 1. How often do you have a drink containing alcohol?: 2-4 times a month 2. How many drinks containing alcohol do you have on a typical day when you are drinking?: 1 or 2 3. How often do you have six or more drinks on one occasion?: Never Total Score: 2 IKER-7 AMB Questionnaire IKER-7 Date IKER - 7 assessed: 10/02/24 Feeling nervous, anxious, or on edge: 0 = Not at all Not being able to stop or control worryin = Not at all Worrying too much about different things: 0 = Not at all Trouble relaxin = Not at all Being so restless that it is hard to sit still: 0 = Not at all Becoming easily annoyed or irritable: 0 = Not at all Feeling afraid as if something awful might happen: 0 = Not at all Total IKER-7 score (0-4 normal; 5-9 mild; 10-14 moderate; 15-21 severe): 0 Source: Developed by Drs. Estiven Cabral, Nat Ibarra, Parrish Nickerson and colleagues, with an educational haley from [employer]. Physical exam (Primary Care) Vital Signs: Last Vital Signs Temp 97.1 F 04/01/25 14:03 Pulse 80 04/01/25 14:03 BP 118/72 04/01/25 14:03 Pulse Ox 94 04/01/25 14:03 Oxygen Delivery Method Room Air 04/01/25 14:03 BMI result Body Mass Index 29.0 Tobacco/Smoking Status: Tobacco use Status Tobacco use date assessed 04/01/25 04/01/25 14:05 Patient Tobacco Use Status Former Tobacco user 04/01/25 14:05 Tobacco use type Cigarette 04/01/25 14:05 e-Cigarette/Vaping Use Never Used 04/01/25 14:05 PHQ-9: PHQ-9 Score PHQ-9: Total score 0 04/01/25 14:41 Depression Screening Interpretation: Negative Thrive Assessment: Date of Thrive Assessment Date Thrive assessed 09/25/24 04/01/25 14:05 Currently or been in a relationship where the following occur: No concerns reported Const General: alert; No acute distress Eyes Conjunctivae: conjunctivae normal Resp Auscultation: clear to auscultation bilaterally Cardio Rate: regular rate Rhythm: regular rhythm GI Inspection: Yes normal to inspection Extrem General: Yes normal to inspection and No edema Office Procedures Flu Questionnaire Does the patient have a severe egg allergy?: No Does the patient have severe life threatening allergies?: No Does the patient have a fever or illness today?: No Has the patient ever had Guillain-Kohler Syndrome?: No Has the patient ever had any past reaction to a flu shot?: No Immunizations Fluarix [id number] (PF) 45 mcg (15 mcg x 3)/0.5 mL IM syringe Performing Provider: Veronica Malone MD [facility] Administered by: Omayra Lofton CMA on 04/01/25 14:41 Dose Route Admin Location Dispensed Lot Number Expiration Date NDC Nibbler Operator 0.5 mL IM Left Deltoid 0.5 mL [id number] 12/22/25 [id number] [employer] VIS Given Date VIS Provided VIS Publication Date 04/01/25 Single Vaccine 24 Eligibility Eligibility Date Funding Source Not [facility] Eligible 04/01/25 Private Coding Level of Care Code Est Pt Level 4 (81580) Complex EM visit Add On G2211 Diagnoses Aortic stenosis I35.0 Nonsustained ventricular tachycardia I47.2 Hypercholesterolemia E78.00 Factor 5 Leiden mutation, heterozygous D68.51 Impaired glucose tolerance R73.02 Mild intermittent asthma without complication J45.20 Asthma complication type: uncomplicated Asthma persistence: intermittent Asthma severity: mild ULISSES (obstructive sleep apnea) G47.33 Assessment & Plan Assessment & Plan (1) Aortic stenosis: Comment: November 2024 1.18 cm Code(s): I35.0 - Nonrheumatic aortic (valve) stenosis Category: Medical Plan: Continuing to monitor. (2) Nonsustained ventricular tachycardia: Comment: Patient followed up by Cardiology, minimally symptomatic. Code(s): I47.2 - Ventricular tachycardia Category: Medical Plan: Minimally symptomatic and being to monitor (3) Hypercholesterolemia: Code(s): E78.00 - Pure hypercholesterolemia, unspecified Category: Medical Plan: Avoid fried foods, chicken skin, eggs, butter margarine, pastries and meat. Be it pork or beef they have a lot of cholesterol LDL goal of less than 100 and triglyceride of less than 150 on rosuvastatin 40 mg once a day (4) Factor 5 Leiden mutation, heterozygous: Comment: February 2022 Code(s): D68.51 - Activated protein C resistance Category: Medical Plan: Continue with anticoagulation and continue to follow-up with Hematology-Oncology (5) Impaired glucose tolerance: Code(s): R73.02 - Impaired glucose tolerance (oral) Category: Medical Plan: Decrease the amount of carbohydrate intake, pasta, bread, rice and potatoes are all sugar and that is aside from all the sweet stuff, remember that fruits are good but they are Sweet also. (6) Asthma: Comment: Cough may be an asthma variant, and we would need to do a complete pulmonary function test to check for that. Code(s): J45.909 - Unspecified asthma, uncomplicated Category: Medical Qualifiers: Asthma complication type: uncomplicated Asthma persistence: intermittent Asthma severity: mild Qualified Code(s): J45.20 - Mild intermittent asthma, uncomplicated Plan: Continue with inhalers as needed (7) ULISSES (obstructive sleep apnea): Comment: He does have moderately severe obstructive sleep apnea. 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 Patient has not been able to use CPAP. I discussed with him the conservative measures are treatment including, weight reduction, always sleep in lateral position. cannot tolerate CPAP Code(s): G47.33 - Obstructive sleep apnea (adult) (pediatric) Category: Medical Plan: Patient is not able to use the CPAP Plan History of Present Illness The patient is a 75-year-old male presenting for a follow-up visit and physical examination. The patient has a history of hypertension, asthma, and hypercholesterolemia. He also has impaired glucose tolerance and a history of gout. The patient has experienced nonsustained ventricular tachycardia and peripheral vascular disease. He has a history of right leg deep vein thrombosis with factor V Leiden mutation and anti-cardiolipin antibody. The patient has obstructive sleep apnea and mild aortic stenosis. His renal function has shown some impairment, with a recent creatinine level of 1.2 mg/dL. The patient reports elevated blood glucose levels, with a recent measurement of 118 mg/dL. He has received vaccinations for flu, shingles, and pneumonia. Health Maintenance - Vaccinations: Flu, shingles, and pneumonia vaccines administered - Blood glucose monitoring: Elevated levels noted, continue monitoring - Renal function monitoring: Creatinine level at 1.2 mg/dL, continue monitoring Social History - Sleep: Patient reports not using CPAP for obstructive sleep apnea due to discomfort Review of Systems - Cardiovascular: Denies chest pain, reports irregular heart rate fluctuations - Respiratory: Denies dyspnea, reports not using CPAP for sleep apnea - Gastrointestinal: Denies constipation, reports occasional difficulty with bowel movements - Genitourinary: Reports nocturia, waking up twice per night to urinate Physical Exam - Respiratory: Lungs auscultated, no abnormal findings reported Results - Labs: Creatinine level at 1.2 mg/dL, blood glucose at 118 mg/dL - Imaging: Echocardiogram showing aortic valve area at 1.18 cm? Plan Patient was informed and verbally consented to the use of an ambient scribe for clinic note documentation during this visit. 1. Hypertension The patient is advised to continue monitoring blood pressure and adhere to prescribed antihypertensive medications. 2. Asthma The patient should continue using inhalers as needed for asthma management. 3. Hypercholesterolemia The patient is on rosuvastatin 40 mg daily with a goal of LDL cholesterol less than 100 mg/dL and triglycerides less than 150 mg/dL. 4. Impaired Glucose Tolerance The patient should continue monitoring blood glucose levels and maintain a healthy diet. 5. Obstructive Sleep Apnea The patient reports not using CPAP due to discomfort and should consider alternative management strategies. 6. Aortic Stenosis, Mild The patient is advised to continue follow-up with cardiology and monitor for symptoms such as dyspnea or chest pain. 7. Renal Function Impairment The patient should avoid NSAIDs and maintain hydration to support renal function. 8. Preventative Care The patient has received vaccinations for flu, shingles, and pneumonia and should continue regular health maintenance visits. Discussion Notes During the visit, I discussed with the patient the importance of continuing his current medication regimen for hypertension and hypercholesterolemia. We reviewed the need for regular monitoring of blood glucose and renal function. I advised the patient to avoid NSAIDs to protect kidney function and to maintain hydration. We also discussed the importance of follow-up with cardiology for his aortic stenosis and the potential need for future interventions. Patient Instructions - Continue taking all prescribed medications as directed. - Monitor blood pressure and blood glucose levels regularly. - Avoid NSAIDs and maintain adequate hydration. - Follow up with cardiology as scheduled for aortic stenosis monitoring. - Continue with regular health maintenance visits and vaccinations. Orders: Orders Influenza [id number] Immunization Today Z23 - Encounter for immunization Comprehensive Met. Panel 5 Months R76.0 - Raised antibody titer Ferritin 5 Months R76.0 - Raised antibody titer Reticulocyte Count 5 Months R76.0 - Raised antibody titer Hemoglobin A1c 5 Months R76.0 - Raised antibody titer Complete Blood Count Auto Diff 5 Months R76.0 - Raised antibody titer Lipid Panel 5 Months E78.00 - Pure hypercholesterolemia, unspecified, R76.0 - Raised antibody titer Thyroid Stimulating Hormone 5 Months R76.0 - Raised antibody titer Free T4 (Free Thyroxine) 5 Months R76.0 - Raised antibody titer Vitamin B12 and Folate 5 Months R76.0 - Raised antibody titer
== END 2025-04-01 14:48 | disposition home or self-care (01) ==
LOC: HO.HMCH 14:00
PROVIDERS: PCP Internal Medicine; Visit Provider Internal Medicine
DX: I35.0 Nonrheumatic aortic (valve) stenosis (principal); I47.20 Ventricular tachycardia, unspecified; E78.00 Pure hypercholesterolemia, unspecified; D68.51 Activated protein C resistance; R73.02 Impaired glucose tolerance (oral); J45.20 Mild intermittent asthma, uncomplicated; G47.33 Obstructive sleep apnea (adult) (pediatric); Z23 Encounter for immunization

== ENCOUNTER → 2025-04-01 13:59 | Outpatient (BNVA) | payer MEDICARE, SELFPAY | PROVIDERS: PCP Internal Medicine; Visit Provider Internal Medicine | DX: I35.0 Nonrheumatic aortic (valve) stenosis (principal); Z23 Encounter for immunization; I47.20 Ventricular tachycardia, unspecified; E78.00 Pure hypercholesterolemia, unspecified; D68.51 Activated protein C resistance; R73.02 Impaired glucose tolerance (oral); J45.20 Mild intermittent asthma, uncomplicated; G47.33 Obstructive sleep apnea (adult) (pediatric); I10 Essential (primary) hypertension; Z79.01 Long term (current) use of anticoagulants; Z13.31 Encounter for screening for depression | CPT/HCPCS: 90471; 90656; 96127; 99212 ==

== ENCOUNTER 2025-04-15 10:18 | Outpatient (REF) | payer MEDICARE, SELFPAY ==
--- NOTE | ~2025-04-15 | US_ITS ---
EXAMINATION: US TRIPLEX LOWER EXTREMITY, RIGHT CLINICAL INFORMATION: Known chronic right DVT, on anticoagulation. COMPARISON: 07/13/2023. TECHNIQUE: Color-flow triplex imaging with spectral analysis and compression Doppler were performed on the right lower extremity. FINDINGS: There is what appears to be chronic thrombus again noted in the mid femoral vein, and the distal popliteal vein. It has a somewhat recannulated appearance suggesting chronicity. This is similar to the prior examination of 07/13/2023. Remainder of the deep venous structures are patent. There is a complex Jones's cyst in the medial popliteal fossa measuring 4.3 x 1.1 x 2.9 cm. US/US venous duplex LE RT IMPRESSION: 1. Chronic appearing deep venous thrombus again noted in the mid femoral vein, and the distal popliteal vein. This is similar to the examination on 07/13/2023. 2. Jones's cyst in the right medial popliteal fossa measuring 4.3 x 1.1 x 2.9 cm. Electronically signed by: Thomas Mccarthy MD 04/15/2025 11:09 AM EDT
--- OUTSIDE RECORDS SUMMARY | 2025-04-15 12:47 | XMS_ITS | Patient Health Record ---
Author Organization [facility] Address [address] [place] [address] Care Team Providers Care Hypoid Gear Generator Name Role Phone Po Veronica WIGGINS Primary Care Provider Estiven Alejo Unavailable [phone] Allergies No Known Allergies Reason For Referral No Information Medications Medication SIG (Take, Route, Frequency, Duration) Notes Start Date End Date Status Naproxen 500 MG 1 tablet as needed O rally every 12 hrs Active Indomethacin 50 MG Oral; Duration: 15 Active Amoxicillin 500 MG 1 capsule Orally *4/ 1 hr before dental work Active Viagra 100 MG 1 tablet as needed O rally Once a day; Duration: 30 day(s) Active tiZANidine HCl 4 MG 1 tablet as needed O rally Three times a day Active Rosuvastatin Calcium 40 MG TAKE 1 TABLET BY MOUTH DAILY Diagnosis Unavailable Oral; Duration: 90 Active Losartan Potassium 25 MG Oral; Duration: 90 Active Metoprolol Succinate ER 100 MG TAKE1- 1/2 TABLET BY MOUTH EVERY MORNING Diagnosis Unavailable Oral Once a day Active HYDROcodone-Acetaminophen 5-325 MG Oral; Duration: 7 Active Vitamin D 50 MCG (1999) 1 capsule Ora lly Once a day; Duration: 30 day(s) Active Yumi Allergy 180 MG 1 tablet Swallow whole with water; do not take with fruit juices. Orally Once a day; Duration: 30 day(s) Active Immunizations Vaccine Route Administration [...] Problem Status W/U Status Risk Notes Problem Screening for malignant neoplasm of colon (710171593) Encounter for screening for malignant neoplasm of colon (Z12.11) Active confirmed Problem Change in bowel habit (07324763) Change in bowel habits (R19.4) Active confirmed Problem Diverticulosis of colon (658085301) Diverticulosis of colon (K57.30) Active confirmed Plan Of Treatment Future Test Test Name Order Date COLONOSCOPY 05/11/2021 Insurance Providers Payer Name Payer Address Payer Phone Subscriber Number Group Number Insured Name Patient Relationship to Insured Coverage Start Date Coverage End Date [facility] [address] [place] [phone] [id number] PAO BUENROSTRO Self - patient is the insured Medical (General) History Medical History History ICD Code NSVT- Non sustained ventricu lar tachycardia - Dr. Mcintosh civil technician--on medication--no cardiac arrests--documented on an ETT Denies CO,DM,CVA,Lung disease,renal dise ase Negative screening colonoscopy in 2007 HTN Hyperlipidemia Systemic reaction to receivi ng the Flu shot and COVID booster on the same day Surgical History Surgery Date(Month/Year) Right knee replacement 2009
--- OUTSIDE RECORDS SUMMARY | 2025-04-15 12:47 | XMS_ITS | Clinical Summary ---
Author Organization [facility] Address [address] [place] [id number] Phone Care Team Providers Care Sales Administration Specialist Name Role Phone Veronica Malone MD Primary Care Provider [phone] Allergies No known active allergies Medications fexofenadine [...] EDT) SODIUM 133 133 - 146 mmol/L [facility] POTASSIUM 4.7 3.3 - 5.1 mmol/L [facility] CHLORIDE 97 96 - 108 mmol/L [facility] CO2 27 21 - 35 mmol/L [facility] BUN 17 6 - 19 mg/dL [facility] CREATININE 1.10 0.5 - 1.5 mg/dL [facility] GLUCOSE 136(H) 70 - 99 mg/dL [facility] ALBUMIN 3.6(L) 3.9 - 4.8 g/dL [facility] TOTAL PROTEIN 7.4 6.5 - 8.0 g/dL [facility] CALCIUM 9.2 8.4 - 10.3 mg/dL [facility] ALKALINE PHOSPHATASE 159(H) 39 - 117 U/L [facility] TOTAL BILIRUBIN 0.6 0.0 - 1.2 mg/dL [facility] AST 57(H) 0 - 37 U/L [facility] ALT 98(H) 0 - 40 U/L [facility] GLOBULIN 3.8 1 - 4.8 g/dL [facility] EGFR 66 >59 mL/min/1.7 3m2 [facility] Comment:Estimated glomerular filtration rate calculated using the CKD-EPI equation. ANION GAP 14 10 - 20 mmol/L [facility] Blood 04/24/2021 1:28 PM EDT 04/24/2021 5:48 PM EDT Kristin Bragg NURSE STAFF INDUSTRIAL [employer] BLOOD ORDERABLES Final Result [facility] [address] [place], [place] [phone] from Last 3 Months or Most Recently [...] [place] [employer] RE[employer]ACEMENT Care Teams Sales Administration Specialist Relationship Specialty Start Date End Date Veronica Malone MD [address] [place] [id number] PCP - General Internal Medicine 05/06/19 Additional Source Comments The information contained in this document represents components of the legal health record. It is not the complete legal health record.[facility]
--- OUTSIDE RECORDS SUMMARY | 2025-04-15 12:48 | XMS_ITS | Clinical Summary ---
Author Organization [facility] Address [address] [place] [address] Care Team Providers Care Beach Lifeguard Name Role Phone Veronica Malone Primary Care Provider [phone] Medications lidocaine (LIDODERM) 5% patch Apply 1 [...] complete this [place] [id number] [facility] Advance Directives Healthcare Agents on File Name Relationship Healthcare Agent [facility] Communication Citlaly Beasley Spouse Health Care Agent Danny Gale Son Alternate Health Care Agent Care Teams [place] Lifeguard Relationship Specialty Start Date End Date Veronica Malone [address] [place] [address] [place] [id number] PCP - General Internal Medicine 05/08/23
== END 2025-04-15 10:19 | disposition home or self-care (01) ==
LOC: HO.US 10:18
PROVIDERS: PCP Internal Medicine; Visit Provider Internal Medicine Medical Oncology
DX: I82.401 Acute embolism and thrombosis of unspecified deep veins of right lower extremity (principal); Z79.01 Long term (current) use of anticoagulants
CPT/HCPCS: 93971

== ENCOUNTER → 2025-04-15 10:22 | Outpatient (BNV) | payer MEDICARE, SELFPAY | PROVIDERS: PCP Internal Medicine; Visit Provider Radiology Diagnostic Radiology | DX: M71.21 Synovial cyst of popliteal space [Baker], right knee (principal) | CPT/HCPCS: 93971 ==